=== PATIENT | male | born 1945 | race Caucasian/White ===

== ENCOUNTER 2024-10-13 19:57 | Outpatient (CLI) | payer OTHER, SELFPAY | END 2024-10-13 19:58 | disposition home or self-care (01) | LOC: AMB 10-15 11:47 | PROVIDERS: Visit Provider Student in an Organized Health Care Education/Training Program | DX: R55 Syncope and collapse (principal) | CPT/HCPCS: A0998 ==

== ENCOUNTER 2024-10-13 20:33 | Emergency (ER) | payer OTHER, SELFPAY ==
--- OUTSIDE RECORDS SUMMARY | 2024-09-03 10:15 | XMS_ITS | Encounter Summary ---
Author Organization [facility] Address [address] [place] [address] Care Team Providers Care Mass Spectroscopist Name Role Phone Charissa Cobb MD Primary Care Provider [phone] Reason for Referral * (Routine) - New Request Specialty Diagnoses / Procedures Referred By Contac t Referred To Contact Diagnoses 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 Complete heart block (HRC) Procedures Permanent Pacemaker Implantation (Outpatient) Abhijit Girard MD [address] [place] [address] Phone: tel: fax: Referral ID Status Reason Start Date Expiration Date V isits Requested Visits Authorized [id number] New Request 09/03/2024 12/03/2025 1 1 * Procedure/Equipment (Routine) - Incomplete Specialty Diagnoses / Procedures Referred By Contac t Referred To Contact Diagnoses 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 Complete heart block (HRC) Procedures XR Chest 2 Views Abhijit Girard MD [address] [place] [address] Phone: tel: fax: Referral ID Status Reason Start Date Expiration Date V isits Requested Visits Authorized [id number] Incomplete 09/03/2024 12/03/2025 1 1 Reason for Visit * Reason Comments CONSULT * Consult/Transfer Care (Routine) - New Request Specialty Diagnoses / Procedures Referred By Contac t Referred To Contact Cardiology Diagnoses Second degree AV block Darby Marroquin MD [address] [place] [address] Phone: tel: fax: [facility] [address] [place] [id number] Phone: tel: fax: Referral ID Status Reason Start Date Expiration Date V isits Requested Visits Authorized [id number] New Request 06/21/2024 09/20/2025 1 1 Encounter Details Date Type Department Care Team (Late st Contact Info) Description 09/03/2024 10:15 AM CDT Office Visit [facility] [address] [place] [address]. [place], [place] [id number] Abhijit Girard MD [address] [place] [address] Complete heart block (HRC) (Primary Dx); Mitral valve disorder (HRC); Second degree AV block Social History Tobacco Use Types Packs/Day Years Used Date Smoking Tobacco: Former Cigarettes 1 8 0 08/01/1961 - 08/01/1969 Smokeless Tobacco: Never Alcohol Use Standard Drinks/Week Comments Yes 12 (1 standard drink = 0.6 oz pu re alcohol) wine with dinner [facility] Utilities Answer Date Recorded In the past 12 months has [employer], oil, or [employer] threatened to shut off services in your home? No 03/01/2024 Humiliation, Afraid, Rape, and Kick questionnair e Answer Date Recorded Within the last year, have y ou been afraid of your partner or ex-partner? No 03/01/2024 Within the last year, have y ou been humiliated or emotionally abused in other ways by your partner or ex-partner? No Within the last year, have y ou been kicked, hit, slapped, or otherwise physically hurt by your partner or ex-partner? No 03/01/2024 Within the last year, have y ou been raped or forced to have any kind of sexual activity by your partner or ex-partner? No 03/01/2024 PHQ-2 Answer Date Recorded PHQ-2 Score 0 04/17/2024 Hunger Vital Sign Answer Date Recorded Within the past 12 months, y ou worried that your food would run out before you got the money to buy more. Never true 03/01/20 24 Within the past 12 months, t he food you bought just didn't last and you didn't have money to get more. Never true 03/01/2024 PRAPARE - Transportation Answer Date Re corded In the past 12 months, has l ack of transportation kept you from medical appointments or from getting medications? No 02/01 In the past 12 months, has l ack of transportation kept you from meetings, work, or from getting things needed for daily living? No 03/01/2024 Housing Stability Vital Sign Answer Farhat e Recorded In the last 12 months, was t here a time when you were not able to pay the mortgage or rent on time? No 03/01/2024 In the past 12 months, how m any times have you moved where you were living? 1 03/01/2024 At [facility] time in the [facility] were you homeless or living in a [facility] (including now)? 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 Not on file Not on file Not on file documented as of this encounter Last Filed Vital Signs Vital Sign Reading Time Taken Comments Blood Pressure 120/68 09/03/2024 10:11 AM CDT Pulse 62 09/03/2024 10:11 AM CDT Temperature - - Respiratory Rate - - Oxygen Saturation - - Inhaled Oxygen Concentration - - Weight 95.3 kg (210 lb) 09/03/2024 10:11 AM CDT Height - - Body Mass Index 27.71 02/29/2024 11:18 PM CDT documented in this encounter Progress Notes * Abhijit Girard MD - 09/03/2024 10:15 AM CDT Cardiac Electrophysiology Consult Note 09/03/2024 Alex Yeboah [id number] Requesting physician: Primary physician: Charissa Cobb MD 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 He is followed in Cardiology Clinic by Dr. Darby Marroquin. He was recently seen in clinic on June 21, 2024. In summary, the patient was in his normal state of health until around 2023 when he has afacial droop. His advised him to go to the ER. He had an MRI in the [facility] ED which showed early subacute infarct in the posterolateral right frontal white matter. Rhythm monitor was ordered which was not revealing for atrial fibrillation however did show second-degree AV block type 2, with ep isodes of two-to-one block. Could not rule out 3rd degree heart block. He has not had any episodes of passing out. He has not had any definitive syncope or presyncope. [place] when he had 2 episodes of lightheadedness when standing up and did have 1 episode, on a very hot day, where he had lightheadedness that was a little bit more persistent. He hasbeen able to maintain his activities, he bikes regularly in the summer until it gets to 20?? and gets his heart rate to at least the low 100s. When he was in [place] he did also go snorkeling and was able to be active. On interview, the patient's expresses concerns that he experiences brief episodes of lightheadedness even without postural changes. The patient is very passionate about staying active with bicycling. The patient is not fully aware of these lightheadedness episodes since his thinks he is confused during these brief times. He otherwise denies any PND, orthopnea lower extremity edema. Past Medical History: Diagnosis Date Actinic keratosis of left cheek 06/28/2013 Arthritis 1985 BPH (benign prostatic hyperplasia) Cancer ([facility]) 2017 prostate Cataract 2023 Combined form of age-related cataract, left eye 06/16/2023 Combined form of age-related cataract, right eye 06/16/2023 Mitral valve prolapse ([facility]) Past Surgical History: Procedure Laterality Date actinic keratosis removal Left removal of actinic kertosis on left cheek ARTHROSCOPY OF JOINT R & L knee EXTRACAPSULAR CATARACT REMV IOL Right 07/27/2023 DR. Andersen IOL right eye 07/27/2023 EXTRACAPSULAR CATARACT REMV IOL Left 08/10/2023 S/P IOL left eye Dr Andersen 08/10/2023 HERNIA REPAIR Right 2010 right inguinal hernia repair PROSTATE SURGERY 2017 VASECTOMY 1975 VASECTOMY* Current Medications: Outpatient Medications Prior to Visit Medication Sig ALLERGY VENOM 100 MCG/ML, RED, Mixed Vespid 100mcg/ml Exp: 11/18/2023 aspirin 81 MG chewable tablet Chew and swallow 1 Tablet (81 mg) by mouth daily. Indications: StrokeDue To Limited Blood Flow Do not start before March 02, 2024. atorvastatin (LIPITOR) 40 MG tablet Take 1 Tablet (40 mg) by mouth every evening. Indications: Cerebrovascular Accident or Stroke, to lower cholesterol EPINEPHrine (EPIPEN) 0.3 MG/0.3ML injection Inject 0.3 mL (0.3 mg) intramuscularly as needed (for allergic reaction). May repeat. fluorouracil (EFUDEX) 5 % cream Apply to face, ears and scalp once or twice daily for 2-4 weeks. Wash hands after applying. Avoid sun. No facility-administered medications prior to visit. Allergies: Allergies Allergen Reactions Bee Venom Beta Adrenergic Blockers Other, see comments While on allergy shots due to risk of allergy reaction and potential decreased effect of Epi-pen when on a beta-paras. Can go on them but would need to discuss with allergists before receiving allergy shots. Review of systems: A complete review of systems was done and is negative, other than as described above. Social History: Reviewed in EMR Family History: Reviewed in EMR Physical Exam: BP 120/68 (BP Location: Right Arm, BP Cuff Size: Large) Pulse 62 Wt 210 lb (57463 g) BMI 27.71 kg/m?? GENERAL: The patient is doing well and relaxed. RESPIRATORY : breath sounds CTA bilaterally, chest rises symmetrically CV : RRR, no m/g/r appreciated, no JVD ABDOMINAL : without scars, normoactive BS, soft, nttp. MUSCULOSKELETAL : fully wt bearing with full ROM in all ext NEUROLOGICAL : AO to person, place, time and situation. Extremities: DP 2+ Labs: Lab Results Component Value Date Creatinine 0.87 03/01/2024 Glucose 94 03/01/2024 CO2 23 03/01/2024 Chloride 107 03/01/2024 Sodium 138 03/01/2024 BUN 19 03/01/2024 Calcium 9.2 03/01/2024 GFR, Estimated >60 03/01/2024 EKG: Personally reviewed by me. Normal sinus rhythm, first-degree AV block, NH interval of 304 milliseconds Imaging: TTE EF 60%, biatrial enlargement, mild mitral regurgitation, dilated 0.4 cm aorta, probably close to normal for height, positive bubble study Event monitor Normal average heart rate. No arrhythmia. 5% PVC and 1% PAC burden. Multiple episodes of AV block - definitive evidence of 2:1 AV block and most likely complete heart block. 3 patient triggers - 1 correlates with sinus rhythm with PVC and 2 are not able to be interpreted due to significant artifact. 04/26/2024 3:21:51 PM ASSESSMENT: Paroxysmal complete heart block Paroxysmal second-degree type 2 av block Frequent episodes of brief dizziness associated with bradycardia History of CVA PFO/ASD Impression: I had an extensive discussion with the patient and his about the findings on the patient's most recent event monitor. I also reviewed the symptoms of dizziness more thoroughly. The patient does not recognize these episodes of dizziness but clearly his notices that he suddenly has these brief episodes where his balance is off and he appears confused and then normalizes quickly. I discussed my concerns of the findings of paroxysmal complete heart block and second-degree type 2av block during the daytime on his event monitor. The bradycardia is associated with these episodesof lightheadedness and the patient is actively not on a calcium channel paras or beta-paras. Therefore this is irreversible. He also has further evidence for underlying AV ann disease with the presence of severe first-degree AV block. Therefore I made the recommendation of considering a permanent pacemaker implant. I recommend getting a dual-chamber permanent pacemaker. I went over the procedure in detail went over the risks and benefits of the implant in detail. Thank you for involving me in the care of your patient, Alex Yeboah. If you have any questions regarding these recommendations, please feel free to contact me. Abhijit Girard MD, MS, [facility], [facility] Department of Cardiology This note was written using dictation software. Please notify me if there are significant unintended word substitutions and I will correct them. documented in this encounter Plan of Treatment Upcoming Encounters Date Type Department Care Team (Late st Contact Info) Description 10/16/2024 10:15 AM CDT Appointment [facility] [address] [facility] [place] [address] 10/16/2024 11:40 AM CDT Appointment [facility] [address] [facility] [place] [address] Shahida Parnell, PRODUCTION MATERIAL COORDINATOR, INSTALLMENT LOAN COLLECTOR [address] [place] [address] 10/23/2024 7:45 AM CDT Appointment [facility] [address] [place] [address] 11/28/2024 10:30 AM CDT Appointment [facility] [address] [place] [address]. 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 Appointment [facility] ER [facility] [facility] [address] [facility] [place] [address] Cheryl De Leon, [facility] [address] [place] [address] ISAIAH TOVAR [place] [id number] documented as of this encounter Procedures Procedure Name Priority Date/Time Associated Diagnosis Comments ECG 12 LEAD OUTPATIENT Routine 09/03/2024 10:03 AM CDT Mitral valve disorder (HRC) documented in this encounter Results * Permanent Pacemaker Implantation (Outpatient) (09/12/2024 3:52 PM CDT) Narrative SYNAPSE - 09/12/2024 3:52 PM CDT Marcos Sarabia MD 09/12/2024 3:58 PM Date of procedure: 09/12/2024 Procedure: Dual chamber (DDD) pacemaker and lead implant (His RV lead); His bundle electrogram recording Pre-procedure diagnosis: Intermittent complete heart block Post-procedure diagnosis:Same Director Of Accounting: Marcos Sarabia MD Estimated blood loss: Minimal Complications: None Procedure Patient was assessed by me prior to the procedure and was determined to be a suitable candidate for the procedure. Informed consent was obtained and placed on chart. Patient was taken to the electrophysiology suite in the fasting non-sedated state. Moderate to deep sedation was provided with intravenous midazolam 2 mg and fentanyl 100 mcg under my supervision for >45 minutes throughout the procedure. Sterile prep and drape were performed in the usual fashion. The left pectoral region was isolated. This region was anesthetized with 1% lidocaine infiltrated locally. A 4-5 cm incision was made parallel and approximately 2-3 cm caudal to the clavicle and using sharp and blunt dissection, the pacemaker pocket was fashioned over the layer of the pectoral muscle. Electrocautery was used for hemostasis. Using fluoroscopic guidance, the left subclavian venapuncture was performed over the intersection of the left first rib. 2-0.035 guidewires were placed via 2 separate passes. Over the first guidewire, a peel-away introducer was inserted. The guidewire and dilator were removed allowing passage of a Medtronic C-315 sheath and the right ventricular (RV) lead to within the intravascular space. Using the C-315 sheath, the His bundle region was mapped and the His bundle was identified. The RV lead tip was positioned within the RV at the right interventricular septum near the His bundle. Appropriate pacing and sensing parameters were obtained. Both introducers were stripped away. The lead was secured to the pectoral muscle using 0 non-absorbable suture and the accompanying suture sleeve. Over the remaining guidewire, another peel-away introducer was inserted allowing passage of a Medtronic C-315 S4 sheath for deployment of the right atrial (RA) lead to the intra-atrial septal region. Using the S4 sheath, the lead tip was positioned along the intra-atrial septum. Appropriate pacing and sensing parameters were obtained. The introducers were stripped away. The lead was secured to the pectoral muscle using 0 non-absorbable suture and the accompanying suture sleeve. The pocket was flushed with antibiotic irrigation. The generator was connected to the leads after confirming serial numbers. The generator was then placed in the pocket with all excess lead coiled behind the generator. The generator was secured to the pectoral muscle with 2-0 non-absorbable suture passed through the hole provided in the header. The pocket was closed in layers using 2-0 absorbable suture in the subcutaneous layer(s) and 4-0 absorbable suture in a subcuticular layer. Dermabond was used to further approximate the edges of the incision. The patient was transferred to the recovery area in stable condition. There were no complications. Results Pulse generator and lead information Pulse generator is a Andre Phillipe Sarah XT DR, Product # [id number]. RA lead is a Medtronic model # 3830. Threshold at 0.5 msec was 0.6 volts, impedance was 1072 ohms, and P-wave amplitude was 4.5 mV. RV lead is a Medtronic model # 3830. Threshold at 0.5 msec was 0.7 volts, impedance was 836 ohms, and R-wave amplitude was 9.5 mV. Diaphragmatic stimulation was negative at 10 volts on both leads. Final Settings Pacing mode is DDDR with a lower rate of 60 BPM and an upper tracking rate of 130 BPM. Atrial and ventricular outputs are both programmed to 2-3 times safety margin. Conclusion Alex Yeboah is a 79 y.o. y/o male who underwent successful implant of a dual chamber pacemaker implant. The RV lead was positioned near the His bundle. Provided the patient has an uncomplicated hospital course, it is anticipated that he will be discharged later today. Abhijit Girard MD PN ELECTROPHYSIOLOGY ORDERABL E Final Result [facility] [address] [place] [address] * XR Chest 2 Views (09/03/2024 12:32 PM CDT) Anatomical Region Laterality Modality Chest, Lung Digital Radiogra phy 09/03/2024 12:2 3 PM CDT Narrative 09/03/2024 2:28 PM CDT COMPARISON: None. FINDINGS: Linear atelectasis in the left lung base. Calcified left hilar lymph node. No acute consolidation. No pneumothorax or pleural effusion. The cardiac silhouette is not enlarged. Degenerative changes in the spine with dextroscoliosis. Procedure Note Donnie Honeycutt MD - 09/03/2024 COMPARISON: None. FINDINGS: Linear atelectasis in the left lung base. Calcified left hilarlymph node. No acute consolidation. No pneumothorax or pleural effusion.The cardiac silhouette is not enlarged. Degenerative changes in the spinewith dextroscoliosis. Abhijit Girard MD RAD GD Final Result * Creatinine / GFR (09/03/2024 12:08 PM CDT) Creatinine 0.92 0.73 - 1.18 mg/dL 09/03/2024 12:47 PM CDT [facility] GFR, Estimated >60 >60 mL/min/1.7 3m2 09/03/2024 12:47 PM CDT [facility] Blood Venipuncture / Unknown 09/03/2024 12:08 PM CDT 09/03/2024 12:10 PM CDT us Abhijit Girard MD LAB_1 Final Result Performing Organization Address [facility] de Phone Number [facility] [address] [place] [address] * BUN (09/03/2024 12:08 PM CDT) BUN 25 7 - 26 mg/dL 09/03/2024 12:47 PM CDT [facility] Blood Venipuncture / Unknown 09/03/2024 12:08 PM CDT 09/03/2024 12:10 PM CDT us Abhijit Girard MD LAB_1 Final Result Performing Organization Address [facility] Phone Number [facility] [address] [place] [address] * Sodium (09/03/2024 12:08 PM CDT) Sodium 136 136 - 145 mmol/L 09/03/2024 12:47 PM CDT [facility] Blood Venipuncture / Unknown 09/03/2024 12:08 PM CDT 09/03/2024 12:10 PM CDT us Abhijit Girard MD LAB_1 Final Result Performing Organization Address [facility] Phone Number [facility] [address] [place] [address] * Potassium (09/03/2024 12:08 PM CDT) Potassium 4.4 3.5 - 5.1 mmol/L 09/03/2024 12:47 PM CDT [facility] Blood Venipuncture / Unknown 09/03/2024 12:08 PM CDT 09/03/2024 12:10 PM CDT us Abhijit Girard MD LAB_1 Final Result Performing Organization Address City/[facility] Co de Phone Number [facility] [address] [place], [place] [id number], [place] * (ABNORMAL) Complete Blood Count-No Diff (09/03/2024 12:08 PM CDT) WBC 4.6 3.5 - 10.5 x10(9)/L 09/03/2024 12:14 PM CDT [facility] RBC 4.11(L) 4.32 - 5.72 x10(12)/L 09/03/2024 12:14 PM CDT [facility] Hemoglobin 13.3(L) 13.5 - 17.5 g/dL 09/03/2024 12:14 PM CDT [facility] HCT 38.8 38.8 - 50.0 % 09/03/2024 12:14 PM CDT [facility] MCV 94.4 80.0 - 100.0 fL 09/03/2024 12:14 PM CDT [facility] MCH 32.4 27.6 - 33.3 pg 09/03/2024 12:14 PM CDT [facility] MCHC 34.3 31.5 - 35.2 g/dL 09/03/2024 12:14 PM CDT [facility] RDW 13.0 11.9 - 15.5 % 09/03/2024 12:14 PM CDT [facility] Platelets 214 150 - 450 x10(9)/L 09/03/2024 12:14 PM CDT [facility] Automated NRBC 0 <=0 /100 WBC 09/03/2024 12:14 PM CDT [facility] Blood Venipuncture / Unknown 09/03/2024 12:08 PM CDT 09/03/2024 12:11 PM CDT us Abhijit Girard MD LAB_1 Final Result [facility] [address] * ECG 12 Lead Outpatient (09/03/2024 10:03 AM CDT) Ventricular Rate 62 BPM [facility] Atrial Rate 62 BPM [facility] P-R Interval 304 ms [facility] QRS Duration 94 ms [facility] QT 400 ms [facility] QTC 406 ms [facility] P [place] 75 degrees [facility]USE [facility] R [place] -61 degrees [facility]USE [facility] T [place] 42 degrees [facility]USE [facility] 09/03/2024 10:0 3 AM CDT Narrative [facility] - 09/03/2024 12:52 PM CDT Sinus rhythm with 1st degree A-V block with occasional Premature ventricular complexes Right atrial enlargement Left axis deviation Possible Inferior infarct , age undetermined Abnormal ECG When compared with ECG of 21-JUN-2024 13:32, No significant change was found Confirmed by Brandy Tejada ([id number]) on 09/03/2024 12:52:35 PM Procedure Note Brandy Tejada MD - 09/03/2024 Sinus rhythm with 1st degree A-V block with occasional Prematureventricular complexes Right atrial enlargement Left axis deviation Possible Inferior infarct , age undetermined Abnormal ECG When compared with ECG of 21-JUN-2024 13:32, No significant change was found Confirmed by Brandy Tejada ([id number]) on 09/03/2024 12:52:35 PM us Abhijit Girard MD PN ECG ORDERABLES Final Resul t MUSE [facility] [address] [place] [address] documented in this encounter Visit Diagnoses Diagnosis Complete heart block (HRC)- Primary Atrioventricular block, complete Mitral valve disorder (HRC) Mitral valve disorders Second degree AV block Other second degree atrioventricular block Mitral valve disorder (HRC) Mitral valve disorders Second degree AV block Other second degree atrioventricular block Complete heart block (HRC) Atrioventricular block, complete documented in this encounter Care Teams Mass Spectroscopist Relationship Specialty Start Date End Date Charissa Cobb MD [address] [place] [address] [place] [address] PCP - General Family Practice 06/19/13 documented as of this encounter
--- OUTSIDE RECORDS SUMMARY | 2024-09-03 11:50 | XMS_ITS | Encounter Summary ---
Author Organization [facility] Address [address] [place] [address] Care Team Providers Care Sheeter Machine Operator Name Role Phone Charissa Cobb MD Primary Care Provider [phone] Encounter Details Date Type Department Care Team (Late st Contact Info) Description 09/03/2024 11:50 AM CDT Lab Visit [facility] [address] [facility]. [place], [place] [address] Mitral valve disorder (HRC); Second degree AV block; Complete heart block (HRC) Social History Tobacco Use Types Packs/Day Years Used Date Smoking Tobacco: Former Cigarettes 1 8 0 08/01/1961 - 08/01/1969 Smokeless Tobacco: Never Alcohol Use Standard Drinks/Week Comments Yes 12 (1 standard drink = 0.6 oz pu re alcohol) wine with dinner [facility] Utilities Answer Date Recorded In the past 12 months has [employer], gas, oil, or water [employer] threatened to shut off services in your [...] any time in the past 12 m [facility], were you homeless or living in a prison (including now)? No 03/01/2024 Sex and Gender [...] on file documented as of this encounter Plan of Treatment Upcoming Encounters Date Type Department Care Team (Late st Contact Info) Description 10/16/2024 10:15 AM CDT Appointment [facility] [address] [facility] [place] [address] 10/16/2024 11:40 AM CDT Appointment [facility] [address] [facility] [place] [address] Shahida Parnell, STAFF RADIOLOGIST, QUALITATIVE RESEARCHER [address] [place] [phone] 10/23/2024 7:45 AM CDT Appointment [facility] [address] [place] [address] 11/28/2024 10:30 AM CDT Appointment [facility] [address] [place] [address]. [place] [address] Zahida Calloway MD [address] [place] [address] 02/12/2025 8:45 AM CDT Appointment [facility] [address] [place] [address] Palma Villegas MD [address] [place] [address] [place] [address] 04/10/2025 2:20 PM CELLAR PACKER Appointment [facility] [address] [address] Cheryl De Leon, [address] [place] [address] documented as of this encounter Procedures Procedure Name Priority Date/Time Associated Diagnosis Comments CREATININE / GFR Routine 09/03/2024 12:0 8 PM CDT 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 Complete heart block (HRC) COMPLETE BLOOD COUNT-NO DIFF Routine 09/03/2024 12:08 PM CDT 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 Complete heart block (HRC) SODIUM Routine 09/03/2024 12:08 PM CDT 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 Complete heart block (HRC) POTASSIUM Routine 09/03/2024 12:08 PM CDT 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 Complete heart block (HRC) BUN Routine 09/03/2024 12:08 PM CDT 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 Complete heart block (HRC) documented in this encounter Results * Creatinine / GFR (09/03/2024 12:08 PM CDT) Creatinine 0.92 0.73 - 1.18 mg/dL 09/03/2024 12:47 PM CDT [facility] GFR, Estimated >60 >60 mL/min/1.7 3m2 09/03/2024 12:47 PM CDT [facility] Blood Venipuncture / Unknown 09/03/2024 12:08 PM CDT 09/03/2024 12:10 PM CDT us Abhijit Girard MD LAB_1 Final Result Performing Organization Address [facility] Co de Phone Number [facility] [address] * BUN (09/03/2024 12:08 PM CDT) BUN 25 7 - 26 mg/dL 09/03/2024 12:47 PM CDT [facility] Blood Venipuncture / Unknown 09/03/2024 12:08 PM CDT 09/03/2024 12:10 PM CDT us Abhijit Girard MD LAB_1 Final Result Performing Organization Address [facility] Co de Phone Number [facility] [address] * Sodium (09/03/2024 12:08 PM CDT) Sodium 136 136 - 145 mmol/L 09/03/2024 12:47 PM CDT [facility] Blood Venipuncture / Unknown 09/03/2024 12:08 PM CDT 09/03/2024 12:10 PM CDT Abhijit Girard MD LAB_1 Final Result Performing Organization Address [facility] Co de Phone Number [facility] [address] [place] [address] * Potassium (09/03/2024 12:08 PM CDT) Potassium 4.4 3.5 - 5.1 mmol/L 09/03/2024 12:47 PM CDT [facility] Blood Venipuncture / Unknown 09/03/2024 12:08 PM CDT 09/03/2024 12:10 PM CDT Abhijit Girard MD LAB_1 Final Result Performing Organization Address [facility] Phone Number [facility] [address] [place] [address] * (ABNORMAL) Complete Blood Count-No Diff (09/03/2024 12:08 PM CDT) WBC 4.6 3.5 - 10.5 x10(9)/L 09/03/2024 12:14 PM CDT [facility] RBC 4.11(L) 4.32 - 5.72 x10(12)/L 09/03/2024 12:14 PM CDT [facility] Hemoglobin 13.3(L) 13.5 - 17.5 g/dL 09/03/2024 12:14 PM CDT [facility] HCT 38.8 38.8 - 50.0 % 09/03/2024 12:14 PM CDT [facility] MCV 94.4 80.0 - 100.0 fL 09/03/2024 12:14 PM CDT [facility] MCH 32.4 27.6 - 33.3 pg 09/03/2024 12:14 PM CDT [facility] MCHC 34.3 31.5 - 35.2 g/dL 09/03/2024 12:14 PM CDT [facility] RDW 13.0 11.9 - 15.5 % 09/03/2024 12:14 PM CDT [facility] Platelets 214 150 - 450 x10(9)/L 09/03/2024 12:14 PM CDT [facility] Automated NRBC 0 <=0 /100 WBC 09/03/2024 12:14 PM CDT [facility] Blood Venipuncture / Unknown 09/03/2024 12:08 PM CDT 09/03/2024 12:11 PM CDT us Abhijit Girard MD LAB_1 Final Result [facility] [address] documented in this encounter Visit Diagnoses Diagnosis Mitral valve disorder (HRC) Mitral valve disorders Second degree AV block Other second degree atrioventricular block Complete heart block (HRC) Atrioventricular block, complete documented in this encounter Care Teams Sheeter Machine Operator Relationship Specialty Start Date End Date Charissa Cobb MD [address] [facility] [place] [address] PCP - General Family Practice 06/19/13 documented as of this encounter
--- OUTSIDE RECORDS SUMMARY | 2024-09-03 12:15 | XMS_ITS | Encounter Summary ---
Author Organization [facility] Address [address], [place] [address] Care Team Providers Care Edge Trimmer Name Role Phone Charissa Cobb MD Primary Care Provider [phone] Reason for Visit * Procedure/Equipment (Routine) - Incomplete Specialty Diagnoses / Procedures Referred By Contac t Referred To Contact Diagnoses 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 Complete heart block (HRC) Procedures XR Chest 2 Views Abhijit Girard MD [address] [place] [address] Phone: tel: fax: Referral ID Status Reason Start Date Expiration Date V isits Requested Visits Authorized [id number] Incomplete 09/03/2024 12/03/2025 1 1 Encounter Details Date Type Department Care Team (Late st Contact Info) Description 09/03/2024 12:15 PM CDT Ancillary Procedure [facility] [address] [place], [place] [id number] Abhijit Girard MD [address] [place] [address] Mitral valve disorder (HRC); Second degree AV block; Complete heart block (HRC) Social History Tobacco Use Types Packs/Day Years Used Date Smoking Tobacco: Former Cigarettes 1 8 0 08/01/1961 - 08/01/1969 Smokeless Tobacco: Never Alcohol Use Standard Drinks/Week Comments Yes 12 (1 standard drink = 0.6 oz pu re alcohol) wine with dinner [facility] Utilities Answer Date Recorded In the past 12 months has th e [employer], gas, oil, or water [employer] threatened to shut off services in your [...] any time in the past 12 m [facility], were you homeless or living in a fpc (including now)? No 03/01/2024 Sex and Gender [...] [facility] Elect[facility] [address] [facility] [address] 10/16/2024 11:40 AM CDT Appointment [facility] [address] [place] [address] Shahida Parnell, MARINE PIPEFITTER, ASSISTANT ACCOUNT EXECUTIVE [address] [place] [address] 10/23/2024 7:45 AM CDT Appointment [facility] [address] [place] [address] 11/28/2024 10:30 AM CDT Appointment Specialty [facility] 401 Allergy Clinic [address] [facility] [place] [address] Zahida Calloway MD [address] [place] [address] 02/12/2025 8:45 AM CDT Appointment [facility] [address] [place] [address] Palma Villegas MD [address] [place] [address] [place] [address] 04/10/2025 2:20 PM CONTRACT MAIL CARRIER Appointment [facility] [address] [place] [address] Cheryl De Leon, [facility] [address] [facility] [place], [place] [address] documented as of this encounter Procedures Procedure Name Priority Date/Time Associated Diagnosis Comments XR CHEST 2 VIEWS Routine 09/03/2024 12:3 2 PM CDT 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 Complete heart block (HRC) documented in this encounter Results * XR Chest 2 Views (09/03/2024 12:32 [...] Abhijit Girard MD RAD GD Final Result documented in this encounter Visit Diagnoses Diagnosis Mitral valve disorder (HRC) Mitral valve disorders Second degree AV block Other second degree atrioventricular block Complete heart block (HRC) Atrioventricular block, complete documented in this encounter Care Teams Edge Trimmer Relationship Specialty Start Date End Date Charissa Cobb MD [address] [facility] [place] [address] PCP - General Family Practice 06/19/13 documented as of this encounter
--- OUTSIDE RECORDS SUMMARY | 2024-09-11 07:45 | XMS_ITS | Encounter Summary ---
Author [facility] Address [address] [place] [address] Care Team Providers Care Transit Proof Machine Operator Name Role Phone Charissa Cobb MD Primary Care Provider [phone] Reason for Visit * Reason Comments ALLERGY SHOT Encounter Details Date Type Department Care Team (Late st Contact Info) Description 09/11/2024 7:45 AM CDT Nursing Visit [facility] [place] [address] Allergic to insect bites and stings (Primary Dx) Social History Tobacco Use Types Packs/Day Years Used Date Smoking Tobacco: Former Cigarettes 1 8 0 08/01/1961 - 08/01/1969 Smokeless Tobacco: Never Alcohol Use Standard Drinks/Week Comments Yes 12 (1 standard drink = 0.6 oz pu re alcohol) wine with dinner [facility] Utilities Answer Date Recorded In the past 12 months has [employer], gas, oil, or water [employer] threatened to shut off services in your [...] any time in the past 12 m [facility], were you homeless or living in a fci (including now)? No 03/01/2024 Sex and Gender [...] on file documented as of this encounter Progress Notes * Zahida Calloway MD - 09/11/2024 7:57 AM CDT [facility] Immunotherapy Injection Visit Recorded On Date: Sep 11 2024 7:57AM By [facility] User: [email or web address] Initials: AC Injection Provider: Charissa Cobb Injection: MIXED VESPID 1mL @ 300 mcg/ml Location: LEFT Notes: 10/31/2024, MAINTAIN, DAY 42, AC/jjyc -> Reaction: None Rxn Notes: None -> Frequency: Q 15-42 Days Schedule: [id number] Treatment Plan: MIXED VESPID (300 mcg/ml) Max Dose: 1.00 @ 300 mcg/ml !-> Vial Override: Scan: <no value> / Actual: [id number] / Reason: HP VIAL Pre Injection Questions Health Screen: Passed * Tyra Zaragoza LPN - 09/11/2024 7:45 AM CDT Date of Visit: 09/11/2024 Date of Last Digital Media Representative Visit DECEMBER 2023 Days Since Last Visit: 42 Action Planned: MAINTAIN Expiration Date: 10/31/2024 Mixdown Needed? NO Reschedule Needed? NO White Dot= Done Purple Dot= Remind to schedule with Digital Media Representative Blue Dot= Need to address an issue before Patient is Seen documented in this encounter Plan of Treatment Upcoming Encounters Date Type Department Care Team (Late st Contact Info) Description 10/16/2024 10:15 AM CDT Appointment [facility] Elect[facility]iology [address] [place], [place] [address] 10/16/2024 11:40 AM CDT Appointment [facility] [address] [place], [place] [phone] Shahida Parnell, AUTOMOTIVE LIGHT MECHANIC, CAUSTIC CRESYLATE SHIFT SUPERINTENDENT [address] [place] [address] 10/23/2024 7:45 AM CDT Appointment [facility] [address] [place] [address] 11/28/2024 10:30 AM CDT Appointment Special[facility] 401 Allergy Clinic [address] [facility] [place] [address] Zahida Calloway MD [address] [place] [address] 02/12/2025 8:45 AM CDT Appointment [facility] [address] [place] [address] Palma Villegas MD [address] [place] [address] [place] [address] 04/10/2025 2:20 PM WALL TO WALL CARPET INSTALLER Appointment [facility] [address] [address] Cheryl De Leon, [address] [place] [address] documented as of this encounter Visit Diagnoses Diagnosis Allergic to insect bites and stings- Primary Allergy, unspecified not elsewhere classified documented in this encounter Care Teams Transit Proof Machine Operator Relationship Specialty Start Date End Date Charissa Cobb MD [address] [place] [address] [place] [address] PCP - General Family Practice 06/19/13 documented as of this encounter
--- OUTSIDE RECORDS SUMMARY | 2024-09-12 13:57 | XMS_ITS | Encounter Summary ---
Author Organization [facility] Address [address] [place] [address] Care Team Providers Care Pest Control Pilot Name Role Phone Charissa Cobb MD Primary Care Provider [phone] Reason for Referral * Procedure/Equipment (Routine) - Incomplete Specialty Diagnoses / Procedures Referred By Contac t Referred To Contact Procedures XR Chest 2 Views Marcos Sarabia MD [address] [place] [address] Phone: tel: fax: Referral ID Status Reason Start Date Expiration Date V isits Requested Visits Authorized [id number] Incomplete 09/12/2024 12/12/2025 1 1 * (Routine) - Incomplete Specialty Diagnoses / Procedures Referred By Contac t Referred To Contact Procedures ECG 12 Lead Inpatient Marcos Sarabia MD [address] [place] [address] Phone: tel: fax: Referral ID Status Reason Start Date Expiration Date V isits Requested Visits Authorized [id number] Incomplete 09/12/2024 12/12/2025 1 1 * (Routine) - New Request Specialty Diagnoses / Procedures Referred By Olivia ford Referred To Contact Diagnoses 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 Complete heart block (HRC) Procedures Permanent Pacemaker Implantation (Outpatient) Abhijit Girard MD [address] [place] [id number] Phone: tel: fax: Referral ID Status Reason Start Date Expiration Date V isits Requested Visits Authorized [id number] New Request 09/03/2024 12/03/2025 1 1 Reason for Visit * Auth/Cert Specialty Diagnoses / Procedures Referred By Olivia ford Referred To Contact Diagnoses OP NEW PACEMAKER (PN) Referral ID Status Reason Start Date Expiration Date Visits Re quested Visits Authorized [id number] Encounter Details Date Type Department Care Team (Late st Contact Info) Description 09/12/2024 1:57 PM CDT - 09/12/2024 5:30 PM CDT Hospital Encounter [facility] Procedural Area [address] [place] [address]. [place] [address] Marcos Sarabia MD [address] [place] [phone] Intermittent complete heart block (HRC) (Primary Dx); Mitral valve disorder (HRC); Second degree AV block; Complete heart block (HRC) Discharge Disposition: Home Social History Tobacco Use Types Packs/Day Years Used Date Smoking Tobacco: Former Cigarettes 1 8 0 08/01/1961 - 08/01/1969 Smokeless Tobacco: Never Alcohol Use Standard Drinks/Week Comments Yes 12 (1 standard drink = 0.6 oz pu re alcohol) wine with dinner [facility] Utilities Answer Date Recorded In the past 12 months has th e electric, gas, oil, or water company threatened to shut off services in your [...] any time in the past 12 m [facility], were you homeless or living in [...] Sign Reading Time Taken Comments Blood Pressure 119/46 09/12/2024 4:46 PM CDT Pulse 66 09/12/2024 4:46 PM CDT Temperature 36.7 C (98.1 F) 09/12/2024 2:22 PM CDT Respiratory Rate 14 09/12/2024 4:46 PM CDT Oxygen Saturation 97% 09/12/2024 4:46 PM CDT Inhaled Oxygen Concentration - - Weight - - Height - - Body Mass Index - - documented in this encounter Medications at Time of Discharge ALLERGY VENOM 100 MCG/ML, RED, Mixed Vespid 100mcg/ml Exp: 11/18/2023 4 aspirin 81 MG chewable tabletIndication s:Ischemic Stroke Chew and swallow 1 Tablet (81 mg) by mouth daily. Indications: Stroke Due To Limited Blood Flow Do not start before March 02, 2024. 100 Tablet 3 4 atorvastatin (LIPITOR) 40 MG tabletIndication s:Cerebrovascula r Accident,to lower cholesterol Take 1 Tablet (40 mg) by mouth every evening. Indications: Cerebrovascular Accident or Stroke, to lower cholesterol 90 Tablet 3 4 03/01/20 25 EPINEPHrine (EPIPEN) 0.3 MG/0.3ML injection Inject 0.3 mL (0.3 mg) intramuscularly as needed (for allergic reaction). May repeat. 4 fluorouracil (EFUDEX) 5 % cream Apply to face, ears and scalp once or twice daily for 2-4 weeks. Wash hands after applying. Avoid sun. 40 g 1 5 documented as of this encounter Procedure Notes * Marcos Sarabia MD - 09/12/2024 3:52 PM CDTAssociated Order(s): PERMANENT PACEMAKER IMPLANTATION Date of procedure: 09/12/2024 Procedure: Dual chamber (DDD) pacemaker and lead implant (His RV lead); His bundle electrogram recording Pre-procedure diagnosis: Intermittent complete heart block Post-procedure diagnosis:Same Hearth Feeder: Marcos Sarabia MD Estimated blood loss: Minimal Complications: None Procedure Patient was assessed by me prior to the procedure and was determined to be a suitable candidate forthe procedure. Informed consent was obtained and placed on chart. Patient was taken to the electrophysiology suite in the fasting non-sedated state. Moderate to deepsedation was provided with intravenous midazolam 2 mg and fentanyl 100 mcg under my supervision for>45 minutes throughout the procedure. Sterile prep and [...] guidewire and dilator were removed allowing passage ofa Medtronic C-315 sheath and the right ventricular (RV) lead to within the intravascular space. Using the C-315 sheath, the His bundle region was mapped and the His bundle was identified. The RV leadtip was positioned within the RV at the right interventricular septum near the His bundle. Appropriate pacing and sensing parameters were obtained. Both introducers were stripped away. The lead was secured to the pectoral muscle using 0 non-absorbable suture and the accompanying suture sleeve. Overthe remaining guidewire, another peel-away introducer was inserted allowing passage of a Medtronic C-315 S4 sheath for deployment of the right atrial (RA) lead to the intra-atrial septal region. Using the S4 sheath, the lead tip was positioned along the intra-atrial septum. Appropriate pacing and sensing parameters were obtained. The introducers were stripped away. The lead was secured to the pectoral muscle using 0 non- absorbable suture and the accompanying suture sleeve. The [...] and lead information Pulse generator is a [employer] [place] XT DR, Product # [id number]. RA lead [...] that he will be discharged later today. documented in this encounter Plan of Treatment Upcoming Encounters Date Type Department Care Team (Late st Contact Info) Description 10/16/2024 10:15 AM CDT Appointment [facility] Electrophysiology [address] [facility] [place] [address] 10/16/2024 11:40 AM CDT Appointment [facility] Elect[facility]iology [address] [facility] [address] Shahida Parnell, FOOD SERVICE CASHIER, ALKYLATION OPERATOR [address] [place] [address] 10/23/2024 7:45 AM CDT Appointment [address] [place] [address] 11/28/2024 10:30 AM CDT Appointment [facility] [address] [facility] [place] [address] Zahida Calloway MD [address] [place] [address] 02/12/2025 8:45 AM CDT Appointment [place] [address] [place] [address] Palma Villegas MD [address] [place] [address] [place] [address] 04/10/2025 2:20 PM SWEEP MOLDER Appointment [facility] Dental [address] [address] Cheryl De Leon [address] [place] [address] documented as of this encounter Procedures Procedure Name Priority Date/Time Associated Diagnosis Comments XR CHEST 2 VIEWS Routine 09/12/2024 5:03 PM CDT ECG 12 LEAD INPATIENT Routine 09/12/2024 4:31 PM CDT PERMANENT PACEMAKER IMPLANTATION Routine 09/12/2024 3:52 PM CDT 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 2 cardiac leads appear in satisfactory position. No pneumothorax or pleural effusion, acute lung infiltrate or other significant change. The heart size and pulmonary vascularity appear normal. Procedure Note Zach Weaver MD - 09/12/2024 COMPARISON: 09/03/2024 FINDINGS: There has been placement of an implanted cardiac device in theleft chest wall. 2 cardiac leads appear in satisfactory position. Nopneumothorax or pleural effusion, acute lung infiltrate or othersignificant change. The heart size and pulmonary vascularity appearnormal. us Marcos Sarabia MD RAD GD Final Result * ECG 12 Lead Inpatient (09/12/2024 4:31 PM CDT) Ventricular Rate 68 BPM MUSE GHP Atrial Rate 68 BPM MUSE GHP P-R Interval 148 ms MUSE GHP QRS Duration 172 ms MUSE GHP QT 488 ms MUSE GHP QTC 518 ms MUSE GHP P Hadley 60 degrees MUSE GHP R Hadley 66 degrees MUSE GHP T Hadley 247 degrees MUSE GHP 09/12/2024 4:31 PM CDT Narrative MUSE GHP - 09/13/2024 9:47 AM CDT Atrial-sensed ventricular-paced rhythm with occasional PVCs. Abnormal ECG When compared with ECG of 03-SEP-2024 10:03, Rhythm is now Atrial-sensed ventricular-paced rhythm Confirmed by Carlotta Pink ([id number]) on 09/13/2024 9:47:10 AM Procedure Note Carlotta Pink MD - 09/13/2024 Atrial-sensed ventricular-paced rhythm with occasional PVCs. Abnormal ECG When compared with ECG of 03-SEP-2024 10:03, Rhythm is now Atrial-sensed ventricular-paced rhythm Confirmed by Carltota Pink ([id number]) on 09/13/2024 9:47:10 AM us Marcos Sarabia MD PN ECG ORDERABLES Final Resu lt [facility] [address] [place] [address] * Permanent Pacemaker Implantation (Outpatient) (09/12/2024 3:52 PM CDT) Narrative SYNAPSE - 09/12/2024 3:52 PM CDT Marcos Sarabia MD 09/12/2024 3:58 PM Date of procedure: 09/12/2024 Procedure: Dual chamber (DDD) pacemaker and lead implant (His RV lead); His bundle electrogram recording Pre-procedure diagnosis: Intermittent complete heart block Post-procedure diagnosis:Same Hearth Feeder: Marcos Sarabia MD Estimated blood loss: Minimal [...] and lead information Pulse generator is a [employer] XT DR, Product # [id number]. RA lead [...] E Final Result [facility] [address] [place] [address] documented in this encounter Visit Diagnoses Diagnosis Intermittent complete heart block (HRC)- Primary Mitral valve disorder (HRC) Mitral valve disorders Second degree AV block Other second degree atrioventricular block Complete heart block (HRC) Atrioventricular block, complete Intermittent complete heart block (HRC) Cardiac pacemaker in situ documented in this encounter Administered Medications Inactive Administered Medications - up to 3 most recent administrations Medication Order MAR Action Action Date Dose Rate Site acetaminophen (TYLENOL) tablet 650 mg 650 mg, Oral, Q6H PRN, Other, Mild Pain (pain score 1-4), Starting on Tue09/12/24 at 1622, Until Tue09/12/24 at 193, Give for mild pain or if patient prefers acetaminophen over other options for pain (all pain scores)., Post-Procedure ceFAZolin (ANCEF) 2 g in dextrose 100 mL premade IVPB 2 g, Intravenous, Administer over 30 Minutes, ONCE, On Tue09/12/24 at 1445, For 1 dose, Infuse within 60 minutes prior to incision; No intraoperative re-dosing needed. Pharmacy may adjust for renal insufficiency. Dose should be sent to and administered in the Electrophysiology Lab., [facility] CardIndications:Surgical Prophylaxis Started 09/12/2024 2:45 PM CDT 2 g 200 mL/hr fentaNYL (SUBLIMAZE) injection 25 mcg 25 mcg, Intravenous, Q2MIN PRN, Pain, anxiety, Starting on Tue09/12/24 at 1417, Until Tue09/12/24 at 1932, For 4 doses, Administer both midazolam and fentaNYL together for anxiety if no adverse reaction. Give in procedural area only. HCV Card., [facility] CardIndications:Mitral valve disorder (HRC),Second degree AV block,Complete heart block (HRC) HYDROcodone-acetaminophen (NORCO) 5-325 MG per tablet 1-2 Tablet 1-2 Tablet, Oral, Q4H PRN, Other, Moderate Pain (pain score 5-7), Starting on Tue09/12/24 at 1622, Until Tue09/12/24 at 1932, Post-Procedure HYDROmorphone (DILAUDID) injection 0.3-0.5 mg 0.3-0.5 mg, Intravenous, Q3H PRN, Other, Severe Pain (pain score 8-10), Starting on Tue09/12/24 at 1622, Until Tue09/12/24 at 1932, Post-Procedure lidocaine (UROJET) 2 % gel prefilled syringe Urethral, PRN WITH PROCEDURES, Local Anesthetic, Prior to intermittent straight cath or indwelling urethral catheter placement for pain relief and/or lubrication, Starting on Tue09/12/24 at 1622, Administer 3-5 mL for females and 5-10mL for males as needed for anesthetic effect prior to procedure Strongly recommend utilizing Coud tipped catheter and PRN Urojet for patients with a prostate age 50 and older. , Post-Procedure midazolam (VERSED) injection 0.5 mg 0.5 mg, Intravenous, Q2MIN PRN, Anxiety, Starting on Tue09/12/24 at 1417, Until Tue09/12/24 at 1932, For 4 doses, Administer both midazolam and fentaNYL together for anxiety if no adverse reaction. Give in procedural area only. HCV Card., [facility] CardIndications:Mitral valve disorder (HRC),Second degree AV block,Complete heart block (HRC) ondansetron (ZOFRAN) injection 4 mg 4 mg, Intravenous, Q30MIN PRN, Nausea, Vomiting, Starting on Tue09/12/24 at 1417, Until Tue09/12/24 at 193, For 2 doses, Repeat 4 mg dose 30 minutes after first dose if symptoms persist., Pre-ProcedureIndications:Mitral valve disorder (HRC),Second degree AV block,Complete heart block (HRC) Given 09/12/2024 2:59 PM CDT 4 mg ondansetron (ZOFRAN) injection 4 mg 4 mg, Intravenous, Q4H PRN, Nausea, Vomiting, Starting on Tue09/12/24 at 1622, Until Tue09/12/24 at 1932, Post-Procedure potassium bicarbonate-citric acid (EFFER-K) effervescent tablet 40 mEq 40 mEq, Oral, CONDITIONAL, Electrolyte Replacement, Starting on Tue09/12/24 at 1417, Until Tue09/12/24 at 193, 40 mEq once for patients with a pre-procedure potassium level less than or equal to 3.6 Message pharmacy to re-enter as ONCE order if conditions are met. Dissolve tablets completely in 3 to 4 ounces of cold/ice water or juice. May further dilute if GI adverse effects occur. May take 3-4 minutes to completely dissolve., Pre-ProcedureIndications:Mitral valve disorder (HRC),Second degree AV block,Complete heart block (HRC) sodium chloride 0.9% infusion Intravenous, at 25 mL/hr, CONTINUOUS, Starting on Tue09/12/24 at 1445, Begin 1 hour prior to the scheduled procedure time., [facility] CardIndications:Mitral valve disorder (HRC),Second degree AV block,Complete heart block (HRC) sodium chloride 0.9% injection 10-60 mL 10-60 mL, Intravenous, PRN, Line Patency, Line Care, Starting on Tue09/12/24 at 1622, Until Tue09/12/24 at 1932, Post-Procedure documented in this encounter Active and Recently Administered Medications Times are shown in CDT. Scheduled Medication Order 09/10/2024 09/11/2024 09/12/2024 ceFAZolin (ANCEF) 2 g in dextrose 100 mL premade IVPB (COMPLETED) 2 g, Intravenous, Administer over 30 Minutes, ONCE, On Tue09/12/24 at 1445, For 1 dose, Infuse within 60 minutes prior to incision; No intraoperative re-dosing needed. Pharmacy may adjust for renal insufficiency. Dose should be sent to and administered in the Electrophysiology Lab., C Card 1445 (Started - Prov ider: Veronika Farmer RN)1515 (Infused - Provider: Veronika Farmer RN) Continuous Medication Order 09/10/2024 09/11/2024 09/12/2024 sodium chloride 0.9% infusion Intravenous, at 25 mL/hr, CONTINUOUS, Starting on Tue09/12/24 at 1445, Begin 1 hour prior to the scheduled procedure time., C Card 1445 (Due) PRN Medication Order 09/10/2024 09/11/2024 09/12/2024 acetaminophen (TYLENOL) tablet 650 mg 650 mg, Oral, Q6H PRN, Other, Mild Pain (pain score 1-4), Starting on Tue09/12/24 at 1622, Until Tue09/12/24 at 1932, Give for mild pain or if patient prefers acetaminophen over other options for pain (all pain scores)., Post-Procedure fentaNYL (SUBLIMAZE) injection 25 mcg 25 mcg, Intravenous, Q2MIN PRN, Pain, anxiety, Starting on Tue09/12/24 at 1417, Until Tue09/12/24 at 1932, For 4 doses, Administer both midazolam and fentaNYL together for anxiety if no adverse reaction. Give in procedural area only. HCV Card., [facility] Card 1513 (Given during P rocedure - Provider: Deepali Mao RN - Comment: given during pacemaker procedure. see report for total amount given) HYDROcodone-acetaminophen (NORCO) 5-325 MG per tablet 1-2 Tablet 1-2 Tablet, Oral, Q4H PRN, Other, Moderate Pain (pain score 5-7), Starting on Tue09/12/24 at 1622, Until Tue09/12/24 at 1931, Post-Procedure HYDROmorphone (DILAUDID) injection 0.3-0.5 mg 0.3-0.5 mg, Intravenous, Q3H PRN, Other, Severe Pain (pain score 8-10), Starting on Tue09/12/24 at 1622, Until Tue09/12/24 at 1931, Post-Procedure lidocaine (UROJET) 2 % gel prefilled syringe Urethral, PRN WITH PROCEDURES, Local Anesthetic, Prior to intermittent straight cath or indwelling urethral catheter placement for pain relief and/or lubrication, Starting on Tue09/12/24 at 1622, Administer 3-5 mL for females and 5-10mL for males as needed for anesthetic effect prior to procedure Strongly recommend utilizing Coud tipped catheter and PRN Urojet for patients with a prostate age 50 and older. , Post-Procedure midazolam (VERSED) injection 0.5 mg 0.5 mg, Intravenous, Q2MIN PRN, Anxiety, Starting on Tue09/12/24 at 1417, Until Tue09/12/24 at 193, For 4 doses, Administer both midazolam and fentaNYL together for anxiety if no adverse reaction. Give in procedural area only. HCV Card., [facility] Card 1513 (Given during P rocedure - Provider: Deepali Mao RN - Comment: given during pacemaker procedure. see report for total amount given) ondansetron (ZOFRAN) injection 4 mg 4 mg, Intravenous, Q30MIN PRN, Nausea, Vomiting, Starting on Tue09/12/24 at 1417, Until Tue09/12/24 at 193, For 2 doses, Repeat 4 mg dose 30 minutes after first dose if symptoms persist., Pre-Procedure 1459 (Given - Provid er: Deepali Mao RN) ondansetron (ZOFRAN) injection 4 mg 4 mg, Intravenous, Q4H PRN, Nausea, Vomiting, Starting on Tue09/12/24 at 1622, Until Tue09/12/24 at 193, Post-Procedure potassium bicarbonate-citric acid (EFFER-K) effervescent tablet 40 mEq 40 mEq, Oral, CONDITIONAL, Electrolyte Replacement, Starting on Tue09/12/24 at 1417, Until Tue09/12/24 at 1932, 40 mEq once for patients with a pre-procedure potassium level less than or equal to 3.6 Message pharmacy to re-enter as ONCE order if conditions are met. Dissolve tablets completely in 3 to 4 ounces of cold/ice water or juice. May further dilute if GI adverse effects occur. May take 3-4 minutes to completely dissolve., Pre-Procedure sodium chloride 0.9% injection 10-60 mL 10-60 mL, Intravenous, PRN, Line Patency, Line Care, Starting on Tue09/12/24 at 1622, Until Tue09/12/24 at 1932, Post-Procedure No Frequency Medication Order 09/10/2024 09/11/2024 09/12/2024 sodium chloride 0.9 % solution Starting on Tue09/12/24 at 1426, For 1 dose, Veronika Farmer: cabinet override 1430 (Due) sodium chloride 0.9% 0.9 % injection - ADS Override Pull Starting on Tue09/12/24 at 1426, Until Tue09/12/24 at 1932, For 1 dose, Veronika Farmer: cabinet override 1430 (Due) documented in this encounter Care Teams Pest Control Pilot Relationship Specialty Start Date End Date Charissa Cobb MD [address] [address] [address] [facility] [place] [address] PCP - General Family Practice 06/19/13 documented as of this encounter
--- OUTSIDE RECORDS SUMMARY | 2024-09-23 14:40 | XMS_ITS | Encounter Summary ---
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 we realized that the right atrial lead had pulled back into the SVC. Therefore he needed to be repositioned. Advancing the right atrial lead via the pectoral pocket just led to increasing slack near the pocket but would not advance up to the SVC. Therefore decision was made to use a sheath to try gain access into the axillary vein via the same location of the right ventricular lead. The right ventricular lead was then removed from the pacemaker pocket. Once access was obtained a long 035 wire was placed through the sheath. This was then used to place a 7 [place] sheath to allow us to replace the right atrial lead. The right atrial lead was taken out of the pocket. A 7 Fr peel away sheath was inserted over the other guidewire. The guidewire and dilator were removed. A Medtronic 3830 lead was advanced through the C-4 sheath to the basal right atrial septum. The lead was fixed in this position with a few turns of clockwise torque. Sensing, impedance, and pacing threshold were excellent. No phrenic stimulation was present with 10V pacing. The sheath was peeled away. Adequate slack in the lead was ensured during deep inspiration by the patient. The suture sleeve was advanced into the pocket where it was sutured with 0 Tevdek to the underlying pectoral muscle. The leads were securely attached to the ICD pulse generator. Antibiotic irrigation of the pocket was performed. The ICD pulse generator was placed in the pocket. Subcutaneous closure was done with 2-0 Vicryl suture. Subcuticular closure was done with 4-0 Vicryl suture. The incision was covered with sterile adhesive. The ICD pulse generator was programmed to its final settings. Please see the senior systems programmer printout for details. There were no complications. Estimated blood loss: minimal. Special individual features of this specific procedure: None. IMPLANTED DEVICE(S) AND THRESHOLD DATA: Right Atrial Lead Data: The right atrial lead was placed at the Septal/Fili's bundle region The RA lead is a Medtronic model 3830-59 lead. The right atrial pacing threshold was 1.2 volts with an impedance of 729 ohms and a current at threshold of 0.9 milliamps. The sensed P-wave amplitude was 2.9 millivolts. New Right Ventricular Lead Data: The new right ventricular lead was placed at the mid-right ventriclular septum and is a Medtronic model 6935M-62 lead. The right ventricular pacing threshold was 0.9 volts with an impedance of 677 ohms and a current at threshold of 0.8 milliamps. The sensed R-wave amplitude was 9.1 millivolts. New Permanent ICD Pulse Generator Data: The new ICD pulse generator is a Medtronic, [place] XT DR, model number [id number]. us Shahida Parnell APRN, BILINGUAL TRAINER PN ELECTROPHYSIOLO GY ORDERABLE Final Result Performing Organization Address [facility] de Phone Number POCT * INPATIENT TELEMETRY MONITORING (09/26/2024 7:31 AM CDT) TELE INTERPRETATION AV Paced Joel LOTT Radha 09/26/2024 7:31 AM CDT Narrative KAYLIE PRATT - 09/26/2024 7:33 AM CDT AV Paced Joel CARMEN us Interface Provider MD EKG Final Resu lt Performing Organization Address [facility] Co de Phone Number KAYLIE [facility] [address] [place] [address] * ECG 12 Lead Inpatient (09/26/2024 7:00 AM CDT) Ventricular Rate 61 BPM [facility] Atrial Rate 61 BPM [facility] P-R Interval 158 ms [facility] QRS Duration 162 ms [facility] QT 514 ms M[facility] QTC 517 ms [facility] P Demotte 72 degrees MUSE [facility] R Demotte 71 degrees MUSE [facility] T Demotte 270 degrees [facility] 09/26/2024 7:00 AM CDT Narrative [facility] - 09/26/2024 4:24 PM CDT AV pacing. Abnormal ECG When compared with ECG of 23-SEP-2024 14:50, Atrial pacing clearly seen. Premature ventricular complexes are no longer Present Vent. rate has decreased BY 18 BPM Confirmed by Dom Mora ([id number]) on 09/26/2024 4:24:45 PM Procedure Note Dom Mora MD - 09/26/2024 AV pacing. Abnormal ECG When compared with ECG of 23-SEP-2024 14:50, Atrial pacing clearly seen. Premature ventricular complexes are no longer Present Vent. rate has decreased BY 18 BPM Confirmed by Dom Mora ([id number]) on 09/26/2024 4:24:45 PM us Shahida Parnell YARN WRAPPER, BILINGUAL TRAINER PN ECG ORDERABLES Final Result [facility] [address] [place] [address] * (ABNORMAL) Complete Blood Count-No Diff (IN AM) (09/26/2024 4:36 AM CDT) WBC 4.3 3.5 - 10.5 x10(9)/L 09/26/2024 4:55 AM CDT [facility] RBC 4.22(L) 4.32 - 5.72 x10(12)/L 09/26/2024 4:55 AM CDT [facility] Hemoglobin 13.5 13.5 - 17.5 g/dL 09/26/2024 4:55 AM CDT [facility] HCT 39.3 38.8 - 50.0 % 09/26/2024 4:55 AM CDT [facility] MCV 93.1 80.0 - 100.0 fL 09/26/2024 4:55 AM CDT [facility] MCH 32.0 27.6 - 33.3 pg 09/26/2024 4:55 AM CDT [facility] MCHC 34.4 31.5 - 35.2 g/dL 09/26/2024 4:55 AM CDT [facility] RDW 12.3 11.9 - 15.5 % 09/26/2024 4:55 AM CDT [facility] Platelets 179 150 - 450 x10(9)/L 09/26/2024 4:55 AM CDT [facility] Automated NRBC 0 <=0 /100 WBC 09/26/2024 4:55 AM CDT [facility] Blood Venipuncture / Unknown 09/26/2024 4:36 AM CDT 09/26/2024 4:52 AM CDT us Palak Whaley MD LAB_1 Final Result [facility] [address] * Basic Metabolic Panel (IN AM) (09/26/2024 4:36 AM CDT) Sodium 138 136 - 145 mmol/L 09/26/2024 5:17 AM CDT [facility] Potassium 4.8 3.5 - 5.1 mmol/L 09/26/2024 5:17 AM CDT [facility] Chloride 106 98 - 109 mmol/L 09/26/2024 5:17 AM CDT [facility] CO2 21 20 - 29 mmol/L 09/26/2024 5:17 AM CDT [facility] Anion Gap 11 6 - 16 mmol/L 09/26/2024 5:17 AM CDT [facility] Calcium 9.4 8.4 - 10.4 mg/dL 09/26/2024 5:17 AM CDT [facility] BUN 21 7 - 26 mg/dL 09/26/2024 5:17 AM CDT [facility] Creatinine 1.02 0.73 - 1.18 mg/dL 09/26/2024 5:17 AM CDT [facility] Glucose 83 70 - 100 mg/dL 09/26/2024 5:17 AM CDT [facility] Comment:The given reference range is for the fasting state. Non-fasting reference range for glucose is 70 - 180 mg/dL. GFR, Estimated >60 >60 mL/min/1.7 3m2 09/26/2024 5:17 AM CDT [facility] Blood Venipuncture / Unknown 09/26/2024 4:36 AM CDT 09/26/2024 4:52 AM CDT us Palak Whaley MD LAB_1 Final Result Performing Organization Address [facility] Phone Number [facility] [address] [place] [address] * Magnesium (09/26/2024 4:36 AM CDT) Magnesium 2.3 1.6 - 2.6 mg/dL 09/26/2024 5:17 AM CDT [facility] Blood Venipuncture / Unknown 09/26/2024 4:36 AM CDT 09/26/2024 4:52 AM CDT us Palak Whaley MD LAB_1 Final Result Performing Organization Address [facility] Phone Number [facility] [address] [place] [address] * INPATIENT TELEMETRY MONITORING (09/25/2024 7:55 PM CDT) TELE QRS DURATION 0.17 [facility] TELE INTERPRETATION AV Paced HG, RN [facility] 09/25/2024 7:55 PM CDT Narrative [facility] - 09/25/2024 7:59 PM CDT AV Paced HG, RN us Interface Provider EKG Final Resu lt Performing Organization Address [facility] de Phone Number [facility] [address] [place] [address] * INPATIENT TELEMETRY MONITORING (09/25/2024 6:42 PM CDT) TELE P-R INTERVAL 0.18 [facility] TELE QRS DURATION 0.17 [facility] TELE R-R INTERVAL 1.00 [facility] TELE QT 0.47 [facility] TELE QTC 0.47 [facility] TELE INTERPRETATION AV Paced SHAISTA, RN [facility] 09/25/2024 6:42 PM CDT Narrative [facility] - 09/26/2024 3:33 AM CDT AV Paced HG, RN us Interface Provider EKG Final Resu lt Performing Organization Address City/[facility]/ZIP Co de Phone Number [facility] [address] [place] [address] * Potassium (09/25/2024 4:45 PM CDT) Potassium 4.3 3.5 - 5.1 mmol/L 09/25/2024 5:24 PM CDT [facility] Blood Venipuncture / Unknown 09/25/2024 4:45 PM CDT 09/25/2024 4:50 PM CDT us Palak Whaley MD LAB_1 Final Result Performing Organization Address City/[facility]/ZIP Co de Phone Number [facility] [address] [place], [place] [address] * Cardiac Cath Procedure (09/25/2024 11:25 AM CDT) 09/25/2024 11:2 5 AM CDT Narrative SYNAPSE - 09/25/2024 11:56 AM CDT Conclusions 1. Ifyu-pe-ohqgazya coronary artery atherosclerosis. 2. Coronary artery calcification. 3. Low LVEDP of 1 mmHg, likely indicating volume depletion. 4. Demand ischemia, in the setting of VT, likely accounts for the modest hs- Troponin elevation. Report Signatures Finalized by Les Adams on 09/25/2024 11:56 AM Event Lo09/25/2024 10:54:37 AM: Phase: Baseline 09/25/2024 10:56:45 AM: COR/LV PROCEDURE INFORMATION 09/25/2024 10:57:59 AM: Case Event Type:Diagnostic Cath,Physician:LES ADAMS 09/25/2024 11:03:23 AM: Patient arrived 09/25/2024 11:03:23 AM: Physician arrived 09/25/2024 11:12:31 AM: Patient name, birthdate and procedure 09/25/2024 11:12:31 AM: verified by patient and armband. 09/25/2024 11:12:31 AM: PD: The risks and alternatives of the procedures and conscious 09/25/2024 11:12:31 AM: sedation were explained to the patient. 09/25/2024 11:12:31 AM: PD: The presence of an accurate procedure consent 09/25/2024 11:12:32 AM: form was verified. 09/25/2024 11:12:32 AM: Special safety precautions based on patient history, 09/25/2024 11:12:32 AM: medication use and allergies. 09/25/2024 11:12:32 AM: Pertinent diagnostic and laboratory results available. 09/25/2024 11:12:32 AM: Availability of any special equipment/implants for procedure. 09/25/2024 11:12:32 AM: The need to administer antibiotics or fluid 09/25/2024 11:12:33 AM: for irrigation purposes. 09/25/2024 11:12:33 AM: Report received 09/25/2024 11:12:33 AM: Labs reviewed 09/25/2024 11:12:37 AM: Flush Bag of 1000 cc NS with 2000u Heparin 09/25/2024 11:12:37 AM: NTG on the table 09/25/2024 11:12:38 AM: Nicardipine on the table 09/25/2024 11:12:39 AM: PD: The patient was placed on the procedural table 09/25/2024 11:12:39 AM: Position: supine with elbow pads and pillow 09/25/2024 11:12:39 AM: Safety straps applied 09/25/2024 11:12:39 AM: Procedure reviewed with patient and questions answered. 09/25/2024 11:12:41 AM: Acceptable for right radial access 09/25/2024 11:12:50 AM: PD: The patient was prepped and draped in a sterile fashion. 09/25/2024 11:12:51 AM: Paced Rhythm. 09/25/2024 11:14:08 AM: Patient states comfortable 09/25/2024 11:14:18 AM: Conscious sedation (pre-procedure) 09/25/2024 11:14:18 AM: Pre-sedation assessment pt pain free, rm air, indep gait 09/25/2024 11:14:31 AM: SpO2 96%; HR 66 bpm; 145/83/109 NBP; LOC 2; LOP 0; RR 17/min EXP: 28 mmHg; 09/25/2024 11:14:33 AM: Patient has been reassessed for sedation by RN 09/25/2024 11:14:33 AM: and sedation is safe to administer 09/25/2024 11:14:34 AM: Medication double checked with: Margaux 09/25/2024 11:17:03 AM: Versed IV 1 mg 09/25/2024 11:17:07 AM: Fentanyl IV 50 mcg 09/25/2024 11:19:15 AM: SpO2 96%; HR 61 bpm; 126/72/94 NBP; LOC 2; RR 16/min EXP: 32 mmHg; 09/25/2024 11:21:13 AM: Versed IV 1 mg 09/25/2024 11:24:00 AM: Patient resting quietly, eyes closed 09/25/2024 11:24:12 AM: SpO2 94%; HR 59 bpm; 125/69/90 NBP; LOC 2; RR 16/min EXP: 34 mmHg; 09/25/2024 11:25:54 AM: Case Start 09/25/2024 11:25:54 AM: Pause for the cause - time out conducted 09/25/2024 11:26:39 AM: PD: 1% Lidocaine into right radial site 09/25/2024 11:26:40 AM: Case Start 09/25/2024 11:27:08 AM: 2L NC 09/25/2024 11:27:26 AM: PD: Arterial sheath inserted 09/25/2024 11:27:28 AM: 6 Fr Slender Glidesheath 09/25/2024 11:27:31 AM: Procedure: Right Radial Arterial Access 09/25/2024 11:27:36 AM: Nicardipine IA IA 200 mcg 09/25/2024 11:27:37 AM: Nitroglycerin IA IA 200 mcg 09/25/2024 11:28:42 AM: Catheter inserted 09/25/2024 11:28:47 AM: 5 FR JL 3.5 09/25/2024 11:29:15 AM: Patient resting quietly, eyes closed 09/25/2024 11:29:20 AM: SpO2 96%; HR 51 bpm; 108/55/75 NBP; LOC 2; RR 15/min EXP: 28 mmHg; 09/25/2024 11:29:24 AM: AO : 79/54/66, HR = 64, II 09/25/2024 11:29:24 AM: Snapshot: AO : 79/54/66 09/25/2024 11:29:29 AM: Injection 09/25/2024 11:29:32 AM: Left Coronary Angiography 09/25/2024 11:29:35 AM: Procedure: Left Coronary Angiography 09/25/2024 11:29:36 AM: PD: Appropriate catheters were used under fluoroscopic guidance 09/25/2024 11:29:36 AM: to selectively cannulate the left & right coronary artery 09/25/2024 11:29:50 AM: Injection 09/25/2024 11:30:02 AM: Injection 09/25/2024 11:30:04 AM: Heparin Bolus IV 5,000 units 09/25/2024 11:30:34 AM: Injection 09/25/2024 11:30:56 AM: Injection 09/25/2024 11:32:01 AM: Catheter removed 09/25/2024 11:32:27 AM: Catheter inserted 09/25/2024 11:32:30 AM: 5 FR JR 4 09/25/2024 11:33:10 AM: LV : 100/-8/1, Max dP/dt = 4883, HR = 72, II 09/25/2024 11:33:10 AM: Snapshot: LV : 100/-8/1 09/25/2024 11:33:11 AM: LV : 98/-11/0, Max dP/dt = 2127, HR = 70, II 09/25/2024 11:33:14 AM: Pullback from LV to AO 09/25/2024 11:33:15 AM: Snapshot: Pullback from LV to AO 09/25/2024 11:33:16 AM: Procedure: Left Heart Cath 09/25/2024 11:33:17 AM: AO : 93/53/31, HR = 70, II 09/25/2024 11:33:18 AM: Patient resting quietly, eyes closed 09/25/2024 11:33:18 AM: PD: A catheter was advanced across the aortic valve and 09/25/2024 11:33:19 AM: PD: pressures were recorded. 09/25/2024 11:33:36 AM: Injection - nonselective 09/25/2024 11:33:44 AM: Injection 09/25/2024 11:33:45 AM: Right Coronary Angiography 09/25/2024 11:33:46 AM: Procedure: Right Coronary Angiography 09/25/2024 11:34:08 AM: SpO2 92%; HR 66 bpm; 106/56/75 NBP; LOC 1; RR 16/min EXP: 29 mmHg; 09/25/2024 11:34:17 AM: Injection 09/25/2024 11:34:40 AM: Catheter removed 09/25/2024 11:34:43 AM: Case End 09/25/2024 11:34:50 AM: Post Procedure Information 09/25/2024 11:34:55 AM: Patient states comfortable 09/25/2024 11:34:56 AM: Patient arouses easily to voice 09/25/2024 11:35:00 AM: Contrast: OMNIPAQUE 350mg/mL 40 mL 09/25/2024 11:35:12 AM: SpO2 91%; HR 67 bpm; 102/55/75 NBP; LOC 1; LOP 0; RR 15/min EXP: 29 mmHg; 09/25/2024 11:35:56 AM: Radial Sheath Removed by: Portia 09/25/2024 11:35:56 AM: PD: Sheath removed, TR band applied. 09/25/2024 11:35:57 AM: TR Band applied 12 ml air injected. 09/25/2024 11:35:57 AM: CMS Intact, pulse palpable, no bleeding at site. 09/25/2024 11:36:19 AM: Patient instructed to keep affected extremity straight 09/25/2024 11:36:19 AM: and call nurse if signs of bleeding or discomfort. 09/25/2024 11:36:20 AM: PD: Patient tolerated procedure well. 09/25/2024 11:36:20 AM: Pain = 0 09/25/2024 11:36:24 AM: Puncture site clean, dry, intact, without hematoma 09/25/2024 11:36:25 AM: PD: Total Conscious Sedation Time: 17 mins 09/25/2024 11:36:37 AM: Conscious Sedation (post-procedure) 09/25/2024 11:36:37 AM: Post-sedation Assessment pt pain free, rm air 09/25/2024 11:36:47 AM: PD: Moderate sedation was administered under the physician's 09/25/2024 11:36:47 AM: PD: supervision for greater than 10 min. 09/25/2024 11:36:56 AM: Intake school laboratory technician: 100 ml 09/25/2024 11:37:01 AM: Output school laboratory technician: 0 09/25/2024 11:37:05 AM: Patient Transferred with R.N.on monitor 09/25/2024 11:37:07 AM: Patient Transferred with R.N. 09/25/2024 11:38:44 AM: Patient Transferred to: 3N 09/25/2024 11:39:09 AM: SpO2 94%; HR 60 bpm; 110/59/76 NBP; LOC 2; LOP 0; RR 19/min EXP: 29 mmHg; Inventory: 6 Fr [facility] JL 3.5 JR 4 Procedure Note Les Adams MD - 09/25/2024 Conclusions 1. Tmbl-od-bjfvhkbe coronary artery atherosclerosis. 2. Coronary artery calcification. 3. Low LVEDP of 1 mmHg, likely indicating volume depletion. 4. Demand ischemia, in the setting of VT, likely accounts for the modesths- Troponin elevation. Report Signatures Finalized by Les Adams on 09/25/2024 11:56 AM Event Lo09/25/2024 10:54:37 AM: Phase: Baseline 09/25/2024 10:56:45 AM: COR/LV PROCEDURE INFORMATION 09/25/2024 10:57:59 AM: Case Event Type:DiagnosticCath,Physician:LES ADAMS 09/25/2024 11:03:23 AM: Patient arrived 09/25/2024 11:03:23 AM: Physician arrived 09/25/2024 11:12:31 AM: Patient name, birthdate and procedure 09/25/2024 11:12:31 AM: verified by patient and armband. 09/25/2024 11:12:31 AM: PD: The risks and alternatives of the proceduresand conscious 09/25/2024 11:12:31 AM: sedation were explained to the patient. 09/25/2024 11:12:31 AM: PD: The presence of an accurate procedureconsent 09/25/2024 11:12:32 AM: form was verified. 09/25/2024 11:12:32 AM: Special safety precautions based on patienthistory, 09/25/2024 11:12:32 AM: medication use and allergies. 09/25/2024 11:12:32 AM: Pertinent diagnostic and laboratory resultsavailable. 09/25/2024 11:12:32 AM: Availability of any special equipment/implants forprocedure. 09/25/2024 11:12:32 AM: The need to administer antibiotics or fluid 09/25/2024 11:12:33 AM: for irrigation purposes. 09/25/2024 11:12:33 AM: Report received 09/25/2024 11:12:33 AM: Labs reviewed 09/25/2024 11:12:37 AM: Flush Bag of 1000 cc NS with 2000u Heparin 09/25/2024 11:12:37 AM: NTG on the table 09/25/2024 11:12:38 AM: Nicardipine on the table 09/25/2024 11:12:39 AM: PD: The patient was placed on the proceduraltable 09/25/2024 11:12:39 AM: Position: supine with elbow pads and pillow 09/25/2024 11:12:39 AM: Safety straps applied 09/25/2024 11:12:39 AM: Procedure reviewed with patient and questionsanswered. 09/25/2024 11:12:41 AM: Acceptable for right radial access 09/25/2024 11:12:50 AM: PD: The patient was prepped and draped in asterile fashion. 09/25/2024 11:12:51 AM: Paced Rhythm. 09/25/2024 11:14:08 AM: Patient states comfortable 09/25/2024 11:14:18 AM: Conscious sedation (pre-procedure) 09/25/2024 11:14:18 AM: Pre-sedation assessment pt pain free, rm air,indep gait 09/25/2024 11:14:31 AM: SpO2 96%; HR 66 bpm; 145/83/109 NBP; LOC 2; LOP 0;RR 17/min EXP: 28 mmHg; 09/25/2024 11:14:33 AM: Patient has been reassessed for sedation by RN 09/25/2024 11:14:33 AM: and sedation is safe to administer 09/25/2024 11:14:34 AM: Medication double checked with: Margaux 09/25/2024 11:17:03 AM: Versed IV 1 mg 09/25/2024 11:17:07 AM: Fentanyl IV 50 mcg 09/25/2024 11:19:15 AM: SpO2 96%; HR 61 bpm; 126/72/94 NBP; LOC 2; RR16/min EXP: 32 mmHg; 09/25/2024 11:21:13 AM: Versed IV 1 mg 09/25/2024 11:24:00 AM: Patient resting quietly, eyes closed 09/25/2024 11:24:12 AM: SpO2 94%; HR 59 bpm; 125/69/90 NBP; LOC 2; RR16/min EXP: 34 mmHg; 09/25/2024 11:25:54 AM: Case Start 09/25/2024 11:25:54 AM: Pause for the cause - time out conducted 09/25/2024 11:26:39 AM: PD: 1% Lidocaine into right radial site 09/25/2024 11:26:40 AM: Case Start 09/25/2024 11:27:08 AM: 2L NC 09/25/2024 11:27:26 AM: PD: Arterial sheath inserted 09/25/2024 11:27:28 AM: 6 Fr Slender Glidesheath 09/25/2024 11:27:31 AM: Procedure: Right Radial Arterial Access 09/25/2024 11:27:36 AM: Nicardipine IA IA 200 mcg 09/25/2024 11:27:37 AM: Nitroglycerin IA IA 200 mcg 09/25/2024 11:28:42 AM: Catheter inserted 09/25/2024 11:28:47 AM: 5 FR JL 3.5 09/25/2024 11:29:15 AM: Patient resting quietly, eyes closed 09/25/2024 11:29:20 AM: SpO2 96%; HR 51 bpm; 108/55/75 NBP; LOC 2; RR15/min EXP: 28 mmHg; 09/25/2024 11:29:24 AM: AO : 79/54/66, HR = 64, II 09/25/2024 11:29:24 AM: Snapshot: AO : 79/54/66 09/25/2024 11:29:29 AM: Injection 09/25/2024 11:29:32 AM: Left Coronary Angiography 09/25/2024 11:29:35 AM: Procedure: Left Coronary Angiography 09/25/2024 11:29:36 AM: PD: Appropriate catheters were used underfluoroscopic guidance 09/25/2024 11:29:36 AM: to selectively cannulate the left & right coronaryartery 09/25/2024 11:29:50 AM: Injection 09/25/2024 11:30:02 AM: Injection 09/25/2024 11:30:04 AM: Heparin Bolus IV 5,000 units 09/25/2024 11:30:34 AM: Injection 09/25/2024 11:30:56 AM: Injection 09/25/2024 11:32:01 AM: Catheter removed 09/25/2024 11:32:27 AM: Catheter inserted 09/25/2024 11:32:30 AM: 5 FR JR 4 09/25/2024 11:33:10 AM: LV : 100/-8/1, Max dP/dt = 4883, HR = 72, II 09/25/2024 11:33:10 AM: Snapshot: LV : 100/-8/1 09/25/2024 11:33:11 AM: LV : 98/-11/0, Max dP/dt = 2127, HR = 70, II 09/25/2024 11:33:14 AM: Pullback from LV to AO 09/25/2024 11:33:15 AM: Snapshot: Pullback from LV to AO 09/25/2024 11:33:16 AM: Procedure: Left Heart Cath 09/25/2024 11:33:17 AM: AO : 93/53/31, HR = 70, II 09/25/2024 11:33:18 AM: Patient resting quietly, eyes closed 09/25/2024 11:33:18 AM: PD: A catheter was advanced across the aorticvalve and 09/25/2024 11:33:19 AM: PD: pressures were recorded. 09/25/2024 11:33:36 AM: Injection - nonselective 09/25/2024 11:33:44 AM: Injection 09/25/2024 11:33:45 AM: Right Coronary Angiography 09/25/2024 11:33:46 AM: Procedure: Right Coronary Angiography 09/25/2024 11:34:08 AM: SpO2 92%; HR 66 bpm; 106/56/75 NBP; LOC 1; RR16/min EXP: 29 mmHg; 09/25/2024 11:34:17 AM: Injection 09/25/2024 11:34:40 AM: Catheter removed 09/25/2024 11:34:43 AM: Case End 09/25/2024 11:34:50 AM: Post Procedure Information 09/25/2024 11:34:55 AM: Patient states comfortable 09/25/2024 11:34:56 AM: Patient arouses easily to voice 09/25/2024 11:35:00 AM: Contrast: OMNIPAQUE 350mg/mL 40 mL 09/25/2024 11:35:12 AM: SpO2 91%; HR 67 bpm; 102/55/75 NBP; LOC 1; LOP 0;RR 15/min EXP: 29 mmHg; 09/25/2024 11:35:56 AM: Radial Sheath Removed by: Portia 09/25/2024 11:35:56 AM: PD: Sheath removed, TR band applied. 09/25/2024 11:35:57 AM: TR Band applied 12 ml air injected. 09/25/2024 11:35:57 AM: CMS Intact, pulse palpable, no bleeding at site. 09/25/2024 11:36:19 AM: Patient instructed to keep affected extremitystraight 09/25/2024 11:36:19 AM: and call nurse if signs of bleeding ordiscomfort. 09/25/2024 11:36:20 AM: PD: Patient tolerated procedure well. 09/25/2024 11:36:20 AM: Pain = 0 09/25/2024 11:36:24 AM: Puncture site clean, dry, intact, withouthematoma 09/25/2024 11:36:25 AM: PD: Total Conscious Sedation Time: 17 mins 09/25/2024 11:36:37 AM: Conscious Sedation (post-procedure) 09/25/2024 11:36:37 AM: Post-sedation Assessment pt pain free, rm air 09/25/2024 11:36:47 AM: PD: Moderate sedation was administered under thephysician's 09/25/2024 11:36:47 AM: PD: supervision for greater than 10 min. 09/25/2024 11:36:56 AM: Intake school laboratory technician: 100 ml 09/25/2024 11:37:01 AM: Output school laboratory technician: 0 09/25/2024 11:37:05 AM: Patient Transferred with R.N.on monitor 09/25/2024 11:37:07 AM: Patient Transferred with R.N. 09/25/2024 11:38:44 AM: Patient Transferred to: 3N 09/25/2024 11:39:09 AM: SpO2 94%; HR 60 bpm; 110/59/76 NBP; LOC 2; LOP 0;RR 19/min EXP: 29 mmHg; Inventory: 6 Fr Juliann Ren JL 3.5 JR 4 us Jame Parham MD PN CARDIAC CATH ORDERABLES Fin al Result Performing Organization Address [facility] Co de Phone Number SYNAPSE [address] [place] [id number] * INPATIENT TELEMETRY MONITORING (09/25/2024 7:50 AM CDT) TELE INTERPRETATION AV Paced Joel RN MUSE [facility] 09/25/2024 7:50 AM CDT Narrative MUSE [facility] - 09/25/2024 7:53 AM CDT AV Paced Joel RN us Interface Provider EKG Final Resu lt Performing Organization Address [facility] de Phone Number MUSE [facility] [address] [place] [address] * INPATIENT TELEMETRY MONITORING (09/25/2024 7:50 AM CDT) TELE INTERPRETATION Ventricular Paced Joel RN MUSE P 09/25/2024 7:50 AM CDT Narrative MUSE [facility] - 09/25/2024 7:52 AM CDT Ventricular Paced Joel RN us Interface Provider EKG Final Resu lt Performing Organization Address [facility] de Phone Number MUSE [facility] [address] [place] [address] * (ABNORMAL) Hepatic Function Panel (09/25/2024 5:25 AM CDT) Alkaline Phosphatase 96 40 - 150 U/L 09/25/2024 9:37 AM CDT [facility] Bilirubin, Total 0.7 0.2 - 1.2 mg/dL 09/25/2024 9:37 AM CDT [facility] Bilirubin, Direct 0.3 0.0 - 0.5 mg/dL 09/25/2024 9:37 AM CDT [facility] AST (SGOT) 36 10 - 40 U/L 09/25/2024 9:37 AM CDT [facility] ALT (SGPT) 33 0 - 55 U/L 09/25/2024 9:37 AM CDT [facility] Protein, Total 6.0(L) 6.4 - 8.3 g/dL 09/25/2024 9:37 AM CDT [facility] Albumin 3.7 3.5 - 5.0 g/dL 09/25/2024 9:37 AM CDT [facility] Blood Venipuncture / Unknown 09/25/2024 5:25 AM CDT 09/25/2024 5:37 AM CDT Palak Whaley MD LAB_1 Final Result Performing Organization Address [facility] de Phone Number [facility] [address] [place] [address] * Magnesium (09/25/2024 5:25 AM CDT) Pathologist [facility] Magnesium 2.0 1.6 - 2.6 mg/dL 09/25/2024 6:12 AM CDT [facility] Blood Venipuncture / Unknown 09/25/2024 5:25 AM CDT 09/25/2024 5:37 AM CDT Palak Whaley MD LAB_1 Final Result Performing Organization Address [facility] Phone Number [facility] [address] [place] [address] * (ABNORMAL) Complete Blood Count-No Diff (IN AM) (09/25/2024 5:25 AM CDT) WBC 3.3(L) 3.5 - 10.5 x10(9)/L 09/25/2024 5:40 AM CDT [facility] RBC 3.99(L) 4.32 - 5.72 x10(12)/L 09/25/2024 5:40 AM CDT [facility] Hemoglobin 12.8(L) 13.5 - 17.5 g/dL 09/25/2024 5:40 AM CDT [facility] HCT 37.5(L) 38.8 - 50.0 % 09/25/2024 5:40 AM CDT [facility] MCV 94.0 80.0 - 100.0 fL 09/25/2024 5:40 AM CDT [facility] MCH 32.1 27.6 - 33.3 pg 09/25/2024 5:40 AM CDT [facility] MCHC 34.1 31.5 - 35.2 g/dL 09/25/2024 5:40 AM CDT [facility] RDW 12.4 11.9 - 15.5 % 09/25/2024 5:40 AM CDT [facility] Platelets 174 150 - 450 x10(9)/L 09/25/2024 5:40 AM CDT [facility] Automated NRBC 0 <=0 /100 WBC 09/25/2024 5:40 AM CDT [facility] Blood Venipuncture / Unknown 09/25/2024 5:25 AM CDT 09/25/2024 5:37 AM CDT us Palak Whaley MD LAB_1 Final Result Performing Organization Address City/State/[facility] Co de Phone Number [facility] [address] * Basic Metabolic Panel (IN AM) (09/25/2024 5:25 AM CDT) Sodium 140 136 - 145 mmol/L 09/25/2024 6:12 AM CDT [facility] Potassium 3.9 3.5 - 5.1 mmol/L 09/25/2024 6:12 AM CDT [facility] Chloride 107 98 - 109 mmol/L 09/25/2024 6:12 AM CDT [facility] CO2 22 20 - 29 mmol/L 09/25/2024 6:12 AM CDT [facility] Anion Gap 11 6 - 16 mmol/L 09/25/2024 6:12 AM CDT [facility] Calcium 9.0 8.4 - 10.4 mg/dL 09/25/2024 6:12 AM CDT [facility] BUN 22 7 - 26 mg/dL 09/25/2024 6:12 AM CDT [facility] Creatinine 0.98 0.73 - 1.18 mg/dL 09/25/2024 6:12 AM CDT [facility] Glucose 85 70 - 100 mg/dL 09/25/2024 6:12 AM CDT [facility] Comment:The given reference range is for the fasting state. Non-fasting reference range for glucose is 70 - 180 mg/dL. GFR, Estimated >60 >60 mL/min/1.7 3m2 09/25/2024 6:12 AM CDT [facility] Blood Venipuncture / Unknown 09/25/2024 5:25 AM CDT 09/25/2024 5:37 AM CDT us Palak Whaley MD LAB_1 Final Result Performing Organization Address [facility] Co de Phone Number [facility] [address] * INPATIENT TELEMETRY MONITORING (09/24/2024 7:04 PM CDT) TELE P-R INTERVAL 0.17 MUSE [facility] TELE QRS DURATION 0.15 MUSE G[facility] TELE QT 0.43 MUSE [facility] TELE INTERPRETATION Ventricular Paced MUSE [facility] 09/24/2024 7:04 PM CDT Narrative MUSE [facility] - 09/24/2024 7:47 PM CDT Ventricular Paced us Interface Provider EKG Final Resu lt Performing Organization Address [facility] Co de Phone Number MUSE [facility] [address] [place] [address] * INPATIENT TELEMETRY MONITORING (09/24/2024 3:49 PM CDT) TELE INTERPRETATION Ventricular Paced Jennifer townsend RN MUSE [facility] 09/24/2024 3:49 PM CDT Narrative MUSE [facility] - 09/24/2024 3:53 PM CDT Ventricular Paced Jennifer townsend RN us Interface Provider EKG Final Resu lt Performing Organization Address [facility] Co de Phone Number MUSE [facility] [address] [place] [address] * INPATIENT TELEMETRY MONITORING (09/24/2024 9:28 AM CDT) TELE INTERPRETATION Ventricular Paced Jennifer Townsend RN MUSE [facility] 09/24/2024 9:28 AM CDT Narrative KAYLIE AREVALOP - 09/24/2024 9:31 AM CDT Ventricular Paced Jennifer Townsend RN us Interface Provider EKG Final Resu lt KAYLIE PRATT [address] [place] [phone] * Echocardiogram (09/24/2024 7:18 AM CDT) 09/24/2024 7:18 AM CDT Narrative PN ECHO - 09/24/2024 9:42 AM CDT Procedure type: ECHOCARDIOGRAM Procedure 09/24/2024 7:18 AM date/time: [facility] Study location: Portable SUMMARY: Normal biventricular size and function. Normal LV wall thickness No significant valvular abnormalities were identified. Pulmonary artery pressures cannot be estimated due to absence of adequate TR jet. No prior images. FINDINGS LEFT VENTRICLE: Left ventricular chamber size is normal. Normal left ventricular wall thickness. Left ventricular ejection fraction is visually estimated at 60%. Indeterminate diastolic function. RIGHT VENTRICLE: Normal right ventricle size and normal global function. A pacemaker lead is noted in the right ventricle. LEFT ATRIUM: Mild left atrial enlargement is present by 2D linear measurement. LILIANA could not be accurately calculated due to poor acoustic windows . RIGHT ATRIUM: Normal right atrium. MITRAL VALVE: Normal mitral valve structure and function. Trace mitral regurgitation. TRICUSPID VALVE: Normal tricuspid valve structure and function. Pulmonary artery pressures cannot be estimated due to absence of adequate TR jet. AORTIC VALVE: Normal aortic valve structure and function. AORTA/GREAT VESSELS: Mild dilation of the aorta is present involving the sinuses of Valsalva. (Maximal dimension 4.2 cm). The ascending aorta not well seen. The inferior vena cava is normal. PULMONARY VALVE: Normal pulmonic valve structure and function. Trace (physiologic) pulmonic regurgitation. PERICARDIUM & PLEURA: There is no pericardial effusion. LVOT LVOT diameter: 2.2 cm LVOT Area: 3.8 cm^2 AORTA Sinus of Valsalva: 4.1 cm Sinus of Valsalva Index: 2.18 cm/m Aortic Arch: 3.6 cm MITRAL VALVE Peak E-wave: 34.3 cm/s Peak A-wave: 52.6 cm/s E/A ratio: 0.65 Deceleration time: 352 ms LEFT ATRIUM LA dimension (2D): 4.3 cm LA Area (A4C): 25.4 cm^2 LA Volume (A4C): 84.2 ml LA Volume (A4C) Index: 37.9 ml/m^2 LEFT VENTRICLE LVIDd (2D): 4.9 cm LVIDs (2D): 3 cm Septum diastolic (2D): 1 cm Post wall diastolic (2D): 1 cm Rel wall thickness: 0.4 LV mass (ASE): 176 g LV mass (ASE) Index: 79.3 g/m^2 FS: 39 % LV DIASTOLIC FUNCTION E' septal velocity: 4.2 cm/s E' lateral velocity: 4.4 cm/s A' septal velocity: 8.5 cm/s A' lateral velocity: 8.8 cm/s E/E' Septal: 8.1 E/E' Lateral: 7.9 E/E' Average: 8 LEFT VENTRICLE: M-MODE LVEDV (Teich): 112.8 ml LVESV (Teich): 35 ml EF (Teichholz): 69 % EF Estimated: 60 % IVC IVC inspiration: 0.7 cm IVC expiration: 2.3 cm INDICATIONS Cardiomyopathy. PROCEDURE 2-D Quality: Good quality 2-dimensional echo was performed and interpreted. Doppler Quality: Good quality pulse, continuous wave, and color Doppler was performed and interpreted. Contrast medium: Optison Amount (ml): 3 Height: 74 in. Weight: 210 lb. Blood pressure: 104 / 65 mmHg BSA: 2.2 m^2 BMI: 27 kg/m^2 Rhythm: Paced Limitation reason: Poor acoustical window Procedure notes: *Patient scanned with defib patches on. *IV: Previously placed by Floor. *Suboptimal study; Echo dropout of the anterior, lateral, apical, septal and inferior wall/s. 6 of 6 segments in standard apical 4, 3 and 2 chamber view/s are not visualized on study. An image enhancer was used due to suboptimal endocardial definition. With the use of an image enhancer, the segments of the left ventricle were reasonably visualized. DEMOGRAPHICS Patient name: OBINNA Del Castillo Date of : 1945 Age: 79 year(s) Gender: Male Procedure Staff Interpreting DOM MORA MD Correction Officer Supervisor: Book Author: MARILUZ DAVIS Ordering Provider: ANGELIQUE ZHANG DO Attending Physician: WARD NGUYEN MD Procedure Note Dom Mora MD - 09/24/2024 Procedure type: ECHOCARDIOGRAM Procedure 09/24/2024 7:18 AM date/time: [facility] Study location: Portable SUMMARY: Normal biventricular size and function. Normal LV wall thickness No significant valvular abnormalities were identified. Pulmonary artery pressures cannot be estimated due to absence of adequate TR jet. No prior images. FINDINGS LEFT VENTRICLE: Left ventricular chamber size is normal. Normal left ventricular wall thickness. Left ventricular ejection fraction is visually estimated at 60%. Indeterminate diastolic function. RIGHT VENTRICLE: Normal right ventricle size and normal global function. A pacemaker lead is noted in the right ventricle. LEFT ATRIUM: Mild left atrial enlargement is present by 2D linear measurement. LILIANA could not be accurately calculated due to poor acoustic windows . RIGHT ATRIUM: Normal right atrium. MITRAL VALVE: Normal mitral valve structure and function. Trace mitral regurgitation. TRICUSPID VALVE: Normal tricuspid valve structure and function. Pulmonary artery pressures cannot be estimated due to absence of adequate TR jet. AORTIC VALVE: Normal aortic valve structure and function. AORTA/GREAT VESSELS: Mild dilation of the aorta is present involving the sinuses of Valsalva. (Maximal dimension 4.2 cm). The ascending aorta not well seen. The inferior vena cava is normal. PULMONARY VALVE: Normal pulmonic valve structure and function. Trace (physiologic) pulmonic regurgitation. PERICARDIUM & PLEURA: There is no pericardial effusion. LVOT LVOT diameter: 2.2 cm LVOT Area: 3.8 cm^2 AORTA Sinus of Valsalva: 4.1 cm Sinus of Valsalva Index: 2.18 cm/m Aortic Arch: 3.6 cm MITRAL VALVE Peak E-wave: 34.3 cm/s Peak A-wave: 52.6 cm/s E/A ratio: 0.65 Deceleration time: 352 ms LEFT ATRIUM LA dimension (2D): 4.3 cm LA Area (A4C): 25.4 cm^2 LA Volume (A4C): 84.2 ml LA Volume (A4C) Index: 37.9 ml/m^2 LEFT VENTRICLE LVIDd (2D): 4.9 cm LVIDs (2D): 3 cm Septum diastolic (2D): 1 cm Post wall diastolic (2D): 1 cm Rel wall thickness: 0.4 LV mass (ASE): 176 g LV mass (ASE) Index: 79.3 g/m^2 FS: 39 % LV DIASTOLIC FUNCTION E' septal velocity: 4.2 cm/s E' lateral velocity: 4.4 cm/s A' septal velocity: 8.5 cm/s A' lateral velocity: 8.8 cm/s E/E' Septal: 8.1 E/E' Lateral: 7.9 E/E' Average: 8 LEFT VENTRICLE: M-MODE LVEDV (Teich): 112.8 ml LVESV (Teich): 35 ml EF (Teichholz): 69 % EF Estimated: 60 % IVC IVC inspiration: 0.7 cm IVC expiration: 2.3 cm INDICATIONS Cardiomyopathy. PROCEDURE 2-D Quality: Good quality 2-dimensional echo was performed and interpreted. Doppler Quality: Good quality pulse, continuous wave, and color Doppler was performed and interpreted. Contrast medium: Optison Amount (ml): 3 Height: 74 in. Weight: 210 lb. Blood pressure: 104 / 65 mmHg BSA: 2.2 m^2 BMI: 27 kg/m^2 Rhythm: Paced Limitation reason: Poor acoustical window Procedure notes: *Patient scanned with defib patches on. *IV: Previously placed by Floor. *Suboptimal study; Echo dropout of the anterior, lateral, apical, septal and inferior wall/s. 6 of 6 segments in standard apical 4, 3 and 2 chamber view/s are not visualized on study. An image enhancer was used due to suboptimal endocardial definition. With the use of an image enhancer, the segments of the left ventricle were reasonably visualized. DEMOGRAPHICS Patient name: OBINNA Del Castillo Date of : 1945 Age: 79 year(s) Gender: Male Procedure Staff Interpreting DOM MORA MD Correction Officer Supervisor: Book Author: MARILUZ DAVIS Ordering Provider: ANGELIQUE ZHANG DO Attending Physician: WARD NGUYEN MD Angelique Zhang DO ET ECHO ORDERABLES Final Result PN ECHO * Magnesium (IN AM) (09/24/2024 5:01 AM CDT) Magnesium 2.1 1.6 - 2.6 mg/dL 09/24/2024 5:45 AM CDT [facility] Blood Venipuncture / Unknown 09/24/2024 5:01 AM CDT 09/24/2024 5:20 AM CDT Angelique Zhang DO LAB_1 Final Result Performing Organization Address City/[facility]/ZIP Co de Phone Number [facility] [address] [place] [address] * Basic Metabolic Panel (IN AM) (09/24/2024 5:01 AM CDT) Sodium 142 136 - 145 mmol/L 09/24/2024 5:45 AM CDT [facility] Potassium 4.2 3.5 - 5.1 mmol/L 09/24/2024 5:45 AM CDT [facility] Chloride 108 98 - 109 mmol/L 09/24/2024 5:45 AM CDT [facility] CO2 24 20 - 29 mmol/L 09/24/2024 5:45 AM CDT [facility] Anion Gap 10 6 - 16 mmol/L 09/24/2024 5:45 AM CDT [facility] Calcium 9.2 8.4 - 10.4 mg/dL 09/24/2024 5:45 AM CDT [facility] BUN 17 7 - 26 mg/dL 09/24/2024 5:45 AM CDT [facility] Creatinine 1.02 0.73 - 1.18 mg/dL 09/24/2024 5:45 AM CDT [facility] Glucose 93 70 - 100 mg/dL 09/24/2024 5:45 AM CDT [facility] Comment:The given reference range is for the fasting state. Non-fasting reference range for glucose is 70 - 180 mg/dL. GFR, Estimated >60 >60 mL/min/1.7 3m2 09/24/2024 5:45 AM CDT [facility] Blood Venipuncture / Unknown 09/24/2024 5:01 AM CDT 09/24/2024 5:20 AM CDT Angelique Zhang DO LAB_1 Final Result [facility] [address] * (ABNORMAL) Complete Blood Count-No Diff (IN AM) (09/24/2024 5:01 AM CDT) WBC 4.7 3.5 - 10.5 x10(9)/L 09/24/2024 5:25 AM CDT [facility] RBC 4.07(L) 4.32 - 5.72 x10(12)/L 09/24/2024 5:25 AM CDT [facility] Hemoglobin 12.8(L) 13.5 - 17.5 g/dL 09/24/2024 5:25 AM CDT [facility] HCT 38.3(L) 38.8 - 50.0 % 09/24/2024 5:25 AM CDT [facility] MCV 94.1 80.0 - 100.0 fL 09/24/2024 5:25 AM CDT [facility] MCH 31.4 27.6 - 33.3 pg 09/24/2024 5:25 AM CDT [facility] MCHC 33.4 31.5 - 35.2 g/dL 09/24/2024 5:25 AM CDT [facility] RDW 12.6 11.9 - 15.5 % 09/24/2024 5:25 AM CDT [facility] Platelets 194 150 - 450 x10(9)/L 09/24/2024 5:25 AM CDT [facility] Automated NRBC 0 <=0 /100 WBC 09/24/2024 5:25 AM CDT [facility] Blood Venipuncture / Unknown 09/24/2024 5:01 AM CDT 09/24/2024 5:20 AM CDT us Angelique Zhang DO LAB_1 Final Result Performing Organization Address [facility] Co de Phone Number [facility] [address] [place] [id number] * INPATIENT TELEMETRY MONITORING (09/24/2024 12:16 AM CDT) TELE INTERPRETATION Ventricular Paced Brielle Strickland RN MUSE [facility] 09/24/2024 12:1 6 AM CDT Narrative MUSE [facility] - 09/24/2024 3:50 AM CDT Ventricular Paced Brielle Strickland RN us Interface Provider EKG Final Resu lt Performing Organization Address [facility] de Phone Number MUSE [facility] [address] [place] [address] * INPATIENT TELEMETRY MONITORING (09/23/2024 7:00 PM CDT) TELE P-R INTERVAL 0.20 MUSE [facility] TELE QRS DURATION 0.13 MUSE G[facility] TELE R-R INTERVAL 0.97 MUSE GHP TELE QT 0.41 MUSE GHP TELE QTC 0.41 MUSE G[facility] TELE INTERPRETATION DOC townsend RN MUSE G[facility] 09/23/2024 7:00 PM CDT Narrative MUSE [facility] - 09/23/2024 7:04 PM CDT DOC townsend RN us Interface Provider EKG Final Resu lt Performing Organization Address [facility] de Phone Number MUSE [facility] [address] [place] [address] * CT Head WO IV Cont (09/23/2024 6:01 PM CDT) Anatomical Region Laterality Modality Head Computed Tomogra phy 09/23/2024 5:52 PM CDT Impressions 09/23/2024 6:06 PM CDT No acute intracranial finding. No significant change since 02/29/2024. Narrative 09/23/2024 6:06 PM CDT COMPARISON: 02/29/2024 TECHNIQUE: Images of the head were obtained without contrast. FINDINGS: Mild generalized parenchymal volume loss. Mild to moderate periventricular white matter hypodensities most cerebral hemispheres, nonspecific but most likely related to chronic small vessel ischemic disease. Encephalomalacia along the posterior aspect of the right parietal lobe, unchanged. No hemorrhage, hydrocephalus, herniation, or mass effect. Rosen-white matter differentiation remains preserved. Visualized paranasal sinuses and mastoid air cells are clear. No acute bony abnormality. Mild vascular calcifications. Procedure Note Kehinde Berry MD - 09/23/2024 COMPARISON: 02/29/2024 TECHNIQUE: Images of the head were obtained without contrast. FINDINGS: Mild generalized parenchymal volume loss. Mild to moderateperiventricular white matter hypodensities most cerebral hemispheres,nonspecific but most likely related to chronic small vessel ischemicdisease. Encephalomalacia along the posterior aspect of the right parietallobe, unchanged. No hemorrhage, hydrocephalus, herniation, or mass effect.Rosen-white matter differentiation remains preserved. Visualized paranasalsinuses and mastoid air cells are clear. No acute bony abnormality. Mildvascular calcifications. IMPRESSION No acute intracranial finding. No significant change since 02/29/2024. us Angelique Zhang DO RAD CT Final Result * XR Portable Chest 1 View (09/23/2024 5:41 PM CDT) Anatomical Region Laterality Modality Chest, Lung Computed Radiogr aphy 09/23/2024 5:27 PM CDT Narrative 09/23/2024 5:45 PM CDT COMPARISON: 09/12/2024 FINDINGS: Left chest implanted cardiac device with intact leads in stable position. Calcified left hilar nodes. Normal cardiomediastinal silhouette and pulmonary vasculature. Streaky bibasilar opacities, left more so than right, probably atelectatic. No new or acute airspace opacity. No pneumothorax or pleural effusion. Bony thorax is unremarkable. Procedure Note Efrain Sim MD - 09/23/2024 COMPARISON: 09/12/2024 FINDINGS: Left chest implanted cardiac device with intact leads in stableposition. Calcified left hilar nodes. Normal cardiomediastinal silhouetteand pulmonary vasculature. Streaky bibasilar opacities, left more so thanright, probably atelectatic. No new or acute airspace opacity. Nopneumothorax or pleural effusion. Bony thorax is unremarkable. us Angelique Zhang DO RAD PORTABLE Final Result * (ABNORMAL) hs-troponin i (2 hour) (09/23/2024 5:26 PM CDT) [facility] hs-troponin i (2 hour) 99(H) <=35 ng/L 09/23/2024 6:09 PM CDT [facility] hs-troponin i change 56(H) -2 - 2 ng/L 09/23/2024 6:09 PM CDT [facility] Comment:Changing Blood Venipuncture / Unknown 09/23/2024 5:26 PM CDT 09/23/2024 5:34 PM CDT Angelique Nohemy Zhang LAB_1 Final Result Performing Organization Address [facility] Phone Number [facility] [address] [place] [address] * (ABNORMAL) hs-troponin i (0 hour) (09/23/2024 3:06 PM CDT) [facility] hs-troponin i (0 hour) 43(H) <=35 ng/L 09/23/2024 5:07 PM CDT [facility] Comment:Criteria met a timed 2h reflex order has been created. Blood Venipuncture / Unknown 09/23/2024 3:06 PM CDT 09/23/2024 3:11 PM CDT Angelique Nohemy Leatha GREEN LAB_1 Final Result Performing Organization Address [facility] Co ct Phone Number [facility] [address] [place] [address] * Magnesium (09/23/2024 3:06 PM CDT) [facility] Magnesium 2.0 1.6 - 2.6 mg/dL 09/23/2024 5:00 PM CDT [facility] Blood Venipuncture / Unknown 09/23/2024 3:06 PM CDT 09/23/2024 3:11 PM CDT us Angelique Zhang DO LAB_1 Final Result [facility] [address] [place], [place] [id number] [place] [address] * (ABNORMAL) Complete Blood Count-W/Diff (09/23/2024 3:06 PM CDT) WBC 5.1 3.5 - 10.5 x10(9)/L 09/23/2024 3:14 PM CDT [facility] RBC 4.06(L) 4.32 - 5.72 x10(12)/L 09/23/2024 3:14 PM CDT [facility] Hemoglobin 12.8(L) 13.5 - 17.5 g/dL 09/23/2024 3:14 PM CDT [facility] HCT 37.4(L) 38.8 - 50.0 % 09/23/2024 3:14 PM CDT [facility] MCV 92.1 80.0 - 100.0 fL 09/23/2024 3:14 PM CDT [facility] MCH 31.5 27.6 - 33.3 pg 09/23/2024 3:14 PM CDT [facility] MCHC 34.2 31.5 - 35.2 g/dL 09/23/2024 3:14 PM CDT [facility] RDW 12.4 11.9 - 15.5 % 09/23/2024 3:14 PM CDT [facility] Platelets 192 150 - 450 x10(9)/L 09/23/2024 3:14 PM CDT [facility] Automated NRBC 0 <=0 /100 WBC 09/23/2024 3:14 PM CDT [facility] Neutrophil Absolute 4.0 1.7 - 7.0 10(9)/L 09/23/2024 3:14 PM CDT [facility] Lymphocyte Absolute 0.5(L) 1.0 - 4.8 10(9)/L 09/23/2024 3:14 PM CDT [facility] Monocyte Absolute 0.5 0.2 - 0.9 10(9)/L 09/23/2024 3:14 PM CDT [facility] Eosinophil Absolute 0.0 0.0 - 0.5 10(9)/L 09/23/2024 3:14 PM CDT [facility] Basophil Absolute 0.0 0.0 - 0.3 10(9)/L 09/23/2024 3:14 PM CDT [facility] Immature Granulocyte % 0.2 0.0 - 0.5 % 09/23/2024 3:14 PM CDT [facility] Blood Venipuncture / Unknown 09/23/2024 3:06 PM CDT 09/23/2024 3:11 PM CDT us Ward Nugyen MD LAB_1 Final Result Performing Organization Address City/State/[facility] Co de Phone Number [facility] [address] * BMP (09/23/2024 3:06 PM CDT) Sodium 137 136 - 145 mmol/L 09/23/2024 3:35 PM CDT [facility] Potassium 4.7 3.5 - 5.1 mmol/L 09/23/2024 3:35 PM CDT [facility] Chloride 104 98 - 109 mmol/L 09/23/2024 3:35 PM CDT [facility] CO2 22 20 - 29 mmol/L 09/23/2024 3:35 PM CDT [facility] Anion Gap 11 6 - 16 mmol/L 09/23/2024 3:35 PM CDT [facility] Calcium 9.6 8.4 - 10.4 mg/dL 09/23/2024 3:35 PM CDT [facility] BUN 25 7 - 26 mg/dL 09/23/2024 3:35 PM CDT [facility] Creatinine 1.16 0.73 - 1.18 mg/dL 09/23/2024 3:35 PM CDT [facility] Glucose 99 70 - 100 mg/dL 09/23/2024 3:35 PM CDT [facility] Comment:The given reference range is for the fasting state. Non-fasting reference range for glucose is 70 - 180 mg/dL. GFR, Estimated >60 >60 mL/min/1.7 3m2 09/23/2024 3:35 PM CDT [facility] Blood Venipuncture / Unknown 09/23/2024 3:06 PM CDT 09/23/2024 3:11 PM CDT us Ward Nguyen MD LAB_1 Final Result Performing Organization Address [facility] Co de Phone Number [facility] [address] * Pacemaker Evaluation (09/23/2024 2:56 PM CDT) 09/23/2024 2:56 PM CDT Narrative [facility] - 09/23/2024 2:56 PM CDT Dual chamber pacemaker functioning as programmed. This is a Carbon Black transmission. Pt presented to [facility] for evaluation of syncope. The device was interrogated to assess data and settings. Observations show Alert: 1 or more monitored VT episodes detected. The longest episode lasting 15.5 minutes at 300 bpm on 23-Sep-2024 12:58. 23 NSVT episodes noted, lasting 1-2 seconds at 157-282 bpm. 2 monitored VT episodes noted No atrial high rate episodes noted. See attached episode list and stored EGMs for details. Recommend review of stored EGMs for rhythm determination. RV paced 95%. Battery voltage WNL. Data provided to requesting MD at time of point of care. Data reviewed by Pacemaker/ICD clinic staff and agree with findings. Please contact if any questions. DSK us Palak Whaley MD PN ELECTROPHYSIOLOGY ORDERABLE F inal Result Performing Organization Address [facility]/ZIP Co de Phone Number [facility] * ECG 12 Lead (09/23/2024 2:50 PM CDT) Ventricular Rate 79 BPM MUSE GHP Atrial Rate 79 BPM MUSE GHP P-R Interval 164 ms MUSE GHP QRS Duration 152 ms MUSE GHP QT 458 ms MUSE GHP QTC 525 ms MUSE GHP P Demotte 30 degrees MUSE GHP R Demotte 57 degrees MUSE GHP T Demotte 248 degrees MUSE GHP 09/23/2024 2:50 PM CDT Narrative MUSE GHP - 09/23/2024 5:59 PM CDT Atrial-sensed ventricular-paced rhythm with occasional Premature ventricular complexes Abnormal ECG When compared with ECG of 12-SEP-2024 16:31, Premature ventricular complexes are now Present Vent. rate has increased BY 11 BPM Confirmed by Ward Nguyen ([id number]) on 09/23/2024 5:59:30 PM Procedure Note Ward Nguyen MD - 09/23/2024 Atrial-sensed ventricular-paced rhythm with occasional Prematureventricular complexes Abnormal ECG When compared with ECG of 12-SEP-2024 16:31, Premature ventricular complexes are now Present Vent. rate has increased BY 11 BPM Confirmed by Ward Nguyen ([id number]) on 09/23/2024 5:59:30 PM Urvashi Villalobos MD PN ECG ORDERABLES Final Re sult [facility] [address] [place] [address] documented in this encounter Visit Diagnoses Diagnosis Sustained ventricular tachycardia (HRC)- Primary Paroxysmal ventricular tachycardia Ventricular tachycardia (paroxysmal) (HRC) Paroxysmal ventricular tachycardia Syncope, cardiogenic Syncope and collapse Syncope Syncope and collapse Ostium secundum type atrial septal defect History of prostate cancer Personal history of malignant neoplasm of prostate SSS (sick sinus syndrome) (HRC) Sinoatrial node dysfunction Cardiac pacemaker in situ Chronic anemia Anemia, unspecified History of stroke Transient ischemic attack (TIA), and cerebral infarction without residual deficits Elevated troponin Other abnormal blood chemistry * Plan of Care - Lion Gonzalez RN - 09/27/2024 11:02 AM CDT Nursing; dc D; up ad ankit Dual paced; no ectopy; vss A; dc to [id number] R; verbalizes teaching Lion Gonzalez RN 11:04 AM 09/27/2024 * Plan of Care - Hanna Quach RN - 09/26/2024 11:08 AM CDT TRANSFER O: Safe transfer to: 3E. Safe transfer from: 3NS. D: MD order to transfer to: Tele related to post ICD placement. A: All belongings: received. Report called to Hanna from [facility]. Discussed plan of care with patient . Medications arrived. Re-oriented to new room. Call light in reach. Bed alarm: on R: Patient arrived via: cart from [facility]. Patient settled into bed. Will continue to monitor. * Plan of Care - Maranda Maldonado RN - 09/26/2024 10:15 AM CDT TRANSFER O: Safe transfer to: 3E. Safe transfer from: 3. D: MD order to transfer to: Tele related to need for continued cares after ICD placement . A: All belongings: sent. Report called to Adal CARMEN. Discussed plan of care with family. Medications sent. Pt to 3E after ICD placement R: Patient transferred via: cart. Patient arrived via: cart. * Plan of Care - Maranda Maldonado RN - 09/26/2024 8:00 AM CDT Pt went to [facility] for ICD placement monitored * Plan of Care - Charlene Wellington RN - 09/26/2024 6:05 AM CDT Nursing shift update [id number] Pt A/Ox4, VSS on RA. 100% AV paced on tele with HR in the 60s. Ambulating in room. R radial site remains CDI. Denies pain or SOB. ICD upgrade this AM. * Plan of Care - Maranda Maldonado RN - 09/25/2024 2:56 PM CDT IPRN Transradial (TR) Band Removal O: TR Band will be removed without complications. D: Pre-procedure: TR Band location: right; site condition: no drainage, no pain, no swelling, no hematoma, no ecchymosis; radial pulses: 2+; and CMS status: capillary refill less than 3 seconds, 2+ radial pulse, normal sensation, extremity warm, color pink, or no tingling A: Patient educated regarding procedure. Air removal began at 1330 , after band in place for 1 hour. Per protocol: 2 mL of air released no less than every five minutes until band deflated. Bleeding assessed at each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 suppository DAILY PRN until patient stools. When patient stools, stop giving PRN meds and continue monitoring for bowel activity. When no stools X 1 day, begin regimen again until patient stools. Do not give if Absolute Neutrophil Count (ANC) is 1 k/cmm or less OR platelet count is 50 k/cmm or less. documented in this encounter Care Teams Director Personal Relationship Specialty Start Date End Date Charissa Cobb MD [address] [place] [address] [place] [address] PCP - General Family Practice 06/19/13 documented as of this encounter
--- OUTSIDE RECORDS SUMMARY | 2024-10-01 11:30 | XMS_ITS | Encounter Summary ---
[facility] Address [address] [place] [address] Care Team Providers Care Old Testament Professor Name Role Phone Charissa Cobb MD Primary Care Provider Reason for Visit * Reason Comments Nurse Visit ECG for Sotalol Encounter Details Date Type Department Care Team (Late st Contact Info) Description 10/01/2024 11:30 AM CDT Nursing Visit [facility] [address] [facility] [place] [address] Nurse, [id number] Ephys Sustained ventricular tachycardia (HRC) (Primary Dx) Social History Tobacco Use Types Packs/Day Years Used Date Smoking Tobacco: Former Cigarettes 1 8 0 08/01/1961 - 08/01/1969 Smokeless Tobacco: Never Alcohol Use Standard Drinks/Week Comments Yes 12 (1 standard drink = 0.6 oz pu re alcohol) wine with dinner [facility] Utilities Answer Date Recorded In the past 12 months has [place], gas, oil, or water company threatened to [...] money to buy more. Never true 09/27/19 Within the past 12 months, t he [...] any time in the past 12 m [facility], were you homeless or living in a nursing home (including now)? No 09/23/2024 Sex and Gender [...] as of this encounter Progress Notes * Michelle Beck RN - 10/01/2024 11:30 AM CDT Patient in clinic for an Electrophysiology Nurse Visit to assess the safety and effectiveness of sotalol following start on 09/26/24. Medications and allergies reviewed and any changes have been updated in EPIC. Subjective Complaints/Comments: Pt confirms he has taken sotalol 80 mg BID since initiating. Denies nausea, dizziness, [place] or other concerns. Objective Findings: Pt appearance: alert, no distress. BP: RR: SaO2: Edema: Today's EKG shows: AV paced rhythm V-rate: 70 bpm OK: 184 ms QRS: 160 ms QT/QTc: 454/490 ms Previous EKG showed: AV paced rhythm 09/27 V-rate: 64 bpm OK: 184 ms QRS: 164 ms QT/QTc: 488/503 ms Assessment: No complaints or abnormal findings. Plan: Continue on current dose of sotalol unchanged. F/U with Shahida 10/16 and device check. Chart cc'd to Shahida Parnell STUDENT DEVELOPMENT COORDINATOR as FYI. documented in this encounter Plan of Treatment Upcoming Encounters Date Type Department Care Team (Late st Contact Info) Description 10/16/2024 10:15 AM CDT Appointment [facility] [address] [facility] [place] [address] 10/16/2024 11:40 AM CDT Appointment [facility] [address] [facility] [place] [address] Shahida Parnell, ART TRACER, DIRECTOR OF EDUCATION [address] [place] [address] 10/23/2024 7:45 AM CDT Appointment [place] [id number] [place] [address] 11/28/2024 10:30 AM CDT Appointment [facility] [address] [facility] [address] Zahida Calloway MD [address] [place] [address] 02/12/2025 8:45 AM CDT Appointment [facility] [address] [place] [address] Palma Villegas MD [address] [facility] [place] [address] 04/10/2025 2:20 PM ABALONE SHELLER Appointment [facility] [address] [address] [address] [place] [address] documented as of this encounter Procedures Procedure Name Priority Date/Time Associated Diagnosis Comments ECG 12 LEAD OUTPATIENT Routine 10/01/2024 9:41 AM CDT Sustained ventricular tachycardia (HRC) documented in this encounter Results * ECG 12 Lead Outpatient (10/01/2024 9:41 AM CDT) Ventricular Rate 70 BPM [facility] Atrial Rate 70 BPM [facility] P-R Interval 184 ms [facility] QRS Duration 160 ms [facility] QT 454 ms [facility] QTC 490 ms [facility] P [place] 73 degrees MUSE [facility] R [place] -67 degrees MUSE [facility] T [place] 97 degrees [facility]USE [facility] 10/01/2024 9:41 AM CDT Narrative [facility] - 10/01/2024 10:19 AM CDT AV dual-paced rhythm Abnormal ECG When compared with ECG of 27-SEP-2024 07:19, Vent. rate has increased BY 6 BPM Confirmed by Dom Joseph ([id number]) on 10/01/2024 10:19:00 AM Procedure Note Dom Joseph MD - 10/01/2024 AV dual-paced rhythm Abnormal ECG When compared with ECG of 27-SEP-2024 07:19, Vent. rate has increased BY 6 BPM Confirmed by Dom Joseph ([id number]) on 10/01/2024 10:19:00 AM us Abhijit Girard MD PN ECG ORDERABLES Final Resul t [facility] [address] [place] [address] documented in this encounter Visit Diagnoses Diagnosis Sustained ventricular tachycardia (HRC)- Primary Paroxysmal ventricular tachycardia documented in this encounter Care Teams Old Testament Professor Relationship Specialty Start Date End Date Charissa Cobb MD [address] [place] [address] [place] [address] PCP - General Family Practice 06/19/13 documented as of this encounter
--- OUTSIDE RECORDS SUMMARY | 2024-10-05 07:40 | XMS_ITS | Encounter Summary ---
Author Organization [facility] Address [address] [place] [address] Care Team Providers Care Sewage Plant Operator Name Role Phone Charissa Cobb MD Primary Care Provider [phone] Reason for Visit * Reason Comments Routine Eye Exam Encounter Details Date Type Department Care Team (Latest Contact Info) Description 10/05/2024 7:40 AM CDT Office Visit Optometry at [facility] [address] [place] [address] Billy Mao, OD [address] [place] [address] [place] [address] Visit for eye and vision exam (Primary Dx); Myopia of left eye; Regular astigmatism of right eye; Hyperopia of right eye; Presbyopia; Pseudophakia of both eyes; Posterior vitreous detachment of both eyes Social History Tobacco Use Types Packs/Day Years Used Date Smoking Tobacco: Former Cigarettes 1 8 0 08/01/1961 - 08/01/1969 Smokeless Tobacco: Never Alcohol Use Standard Drinks/Week Comments Yes 12 (1 standard drink = 0.6 oz pu re alcohol) wine with dinner [facility] Utilities Answer Date Recorded In the [...] any time in the past 12 m [facility], were you homeless or living in a senior care (including now)? No 09/23/2024 Sex and Gender [...] on file documented as of this encounter Patient Instructions * Patient Instructions* Billy Mao, OD - 10/05/2024 7:40 AM CDT Thank you for allowing me to participate in your care at [facility]. If you have any questions regarding your visit today, please feel free to reach out via [employer]. Preventative Eye Care: UV Protection: UV light can be damaging to your eyes just like it can be to your skin. When searching for sunglasses, make sure that they have a rating of UV400 or higher. This means they???ll filter 99.9% of both UVA and UVB rays. Overexposure to either can cause damage to the eye. Polarized glasses can also be helpful because they cut down on the horizontal light that is common when driving or spending time on the hwang. They are recommended in addition to UV protection. Diet and Nutrition: Lutein and Zeaxanthin are antioxidants found in the lens and retina of the eye. They are vital for the central part of your vision. They are also suspected to reduce damage from the blue light emitted from computer screens as well. They are found in dark, leafy vegetables such as kale, spinach, broccoli, and brussel sprouts. Smoking cessation is an important aspect of your eye health as some eye diseases can get worse withsmoking. [facility] have health coaches to assist you in being tobacco free. If interested, call [phone]. Eye Drops: Dryness: Refresh, Systane, Blink Allergies: Zaditor, Alaway, Pataday Avoid: Visine, Clear Eyes, Opcon-A The active ingredients in these drops are either Tetrahydrozoline or Naphazoline. They work by artificially clamping down on the blood vessels that are visible. This may work temporarily but with longterm use it can cause the blood vessels to become larger and more visible. Computer Use: A good rule of thumb for not straining your eyes while at the computer is the 20-20-20 rule. Every 20 minutes look at something 20 feet away for 20 seconds. Other helpful hints are to try blue-light blocking glasses, change the lighting on the computer, adjust computer for a healthy posture, and give yourself time to blink fully as blinking is severely reduced with screen time. Dilation: Dilation drops may have been used today. These drops allow us to have a clearer, wider view inside the eye to look for signs of eye disease. Your vision could be blurry up close and pupils may look larger for up to 4 to 6 hours. It is recommended that you wear sunglasses when you are outside today.If you do not have any sunglasses with you, there are some disposable ones available. Please use caution in getting around for the few hours that your eyes are dilated. documented in this encounter Progress Notes * Billy Mao, HARESH - 10/05/2024 7:40 AM CDT Chief Complaint Patient presents with Routine Eye Exam HPI Alex is here today for a routine eye exam. Last visit was 08/29/2023 with . New to this provider. Denies vision problems or changes. Denies redness, itching, or dryness. No drops or ointments used. Has not worn glasses since his cataract surgery. Last edited by Melody Hood COA on 10/05/2024 7:44 AM. History Reviewed I have personally reviewed the patient's allergies, medications, past medical history and problem list in detail and updated the patient record as necessary. Patient displays normal affect and orientation with no signs of distress. Assessment: 1. Visit for eye and vision exam 2. Myopia of left eye 3. Regular astigmatism of right eye 4. Hyperopia of right eye 5. Presbyopia 6. Pseudophakia of both eyes 7. Posterior vitreous detachment of both eyes Plan: 1-5. Spectacle prescription given. Return for follow-up as directed. 6. Stable. Monitor. 7. Stable. Monitor. Return in about 1 year (around 10/05/2025) for Comprehensive Eye Exam. Billy Mao OD documented in this encounter Plan of Treatment Upcoming Encounters Date Type Department Care Team (Late st Contact Info) Description 10/16/2024 10:15 AM CDT Appointment [facility] [address] [place] [address] 10/16/2024 11:40 AM CDT Appointment [facility] [address] [place] [address] Shahida Parnell, MED SPEC, TUNGSTEN TENDER [address] [place] [address] 10/23/2024 7:45 AM CDT Appointment [facility] [address] [place] [address] 11/28/2024 10:30 AM CDT Appointment [facility] [address] [facility] [address] [facility] [place] [place] [address] Zahida Calloway MD [address] [place] [address] 02/12/2025 8:45 AM CDT Appointment [facility] [address] [place] [address] Palma Villegas MD [address] [place] [address] [place] [address] 04/10/2025 2:20 PM FARM MANAGER Appointment [facility] [address] [address] Cheryl De Leon, [address] [place] [address] documented as of this encounter Visit Diagnoses Diagnosis Visit for eye and vision exam- Primary Examination of eyes and vision Myopia of left eye Myopia Regular astigmatism of right eye Regular astigmatism Hyperopia of right eye Presbyopia Pseudophakia of both eyes Lens replaced by other means Posterior vitreous detachment of both eyes Vitreous degeneration documented in this encounter Care Teams Sewage Plant Operator Relationship Specialty Start Date End Date Charissa Cobb MD [address] [facility] [place] [address] PCP - General Family Practice 06/19/13 documented as of this encounter
[2024-10-13 20:49] VITALS: BP 122/76; PULSE 62; RESP 18; TEMP 35.9; O2SAT 95; BMI 25.7
--- NOTE | 2024-10-13 21:01 | ED.GENADULT ---
HPI - General Adult General Chief complaint: Syncope/Fainted Stated complaint: Fainted, Pacemaker installed 09/23/24 Time Seen by Provider: 10/13/24 20:54 History of Present Illness HPI narrative: Pt reports around 194 he finished dinner , stood up and had a syncopal episode. Pt states he had some wine. states he was down for about 10 minutes. Pt was diaphoretic following episode but had no further symptoms. Pt had pacemaker placed on October 27. 79-year-old man presenting to the emergency department following apparent syncopal event. Had been enjoying a meal with his family with multiple pours of proseco and got up from the table was feeling lightheaded managed to set himself down and slid down in the corner of a room. Did not hit his head. Eyes are open but was not responsive for some minutes. No shaking was described. Not feeling short of breath nor chest pain. Feeling well at this time. Understandably alarming given recent pacemaker defibrillator installed on 09/26 per his report. Had actually had a pacemaker installed earlier in the month and while biking apparently passed out with a run of V-tach. Went back and then and had this pacer defibrillator installed. Sounds to have been tolerating it well prior to this. No fever noted. Related Data Home Medications ?Medication ?Instructions ?Recorded ?Confirmed aspirin PO DAILY 10/13/24 atorvastatin 40 mg tablet 40 mg PO QPM 10/13/24 10/13/24 metoprolol succinate 25 mg 25 mg PO DAILY 10/13/24 10/13/24 tablet,extended release 24 hr sotalol 80 mg tablet 80 mg PO BID 10/13/24 10/13/24 Allergies Allergy/AdvReac Type Severity Reaction Status Date / Time bee venom protein (honey bee) Allergy Severe Anaphylaxis Verified 10/13/24 21:00 Review of Systems Status of ROS: Reports: 6 or more systems reviewed and unremarkable except as noted in History and below PFSH PFSH Social History Smoking Status: Never smoker How often do you have a drink containing alcohol: 2-3 times a week AUDIT-C Alcohol total score: 3 Non-prescribed substance use: denies use Exam Narrative: Exam Narrative: Very pleasant. NAD. Lately hard of hearing with hearing aids in place. Tall. Lungs are clear. Heart in regular but slower rate. No murmur identified. Examination the chest does show a well-healing surgical incision at the left upper chest with palpable hardware. Moving all extremities without difficulty. Well-perfused. No peripheral edema. Abdomen is soft nontender. Head is atraumatic. Const: Vital Signs, click to edit/add: Vital Signs - 24 hr 10/13/24 20:49 10/13/24 21:38 Temperature 96.7 F L Pulse Rate [Left P ulse Oximeter] 62 Pulse Rate [orthos tatic lying Right Pulse Oximeter] 62 Pulse Rate [orthos tatic sitting Righ t Pulse Oximeter] 67 Pulse Rate [orthos tatic standing Rig ht Pulse Oximeter] 80 Respiratory Rate 18 Blood Pressure [Ri ght Upper Arm] 122/76 Blood Pressure [or thostatic lying Le ft Arm] 111/62 Blood Pressure [or thostatic sitting Left Arm] 103/87 Blood Pressure [or thostatic standing Left Arm] 83/58 L Pulse Oximetry 95 Oxygen Delivery Me thod Room Air Documenting provider has reviewed patient's vital signs: yes Course Vital Signs Vital signs: Initial Vital Signs Temperature 96.7 F L 10/13/24 20:49 Temperature Source Temporal Artery Scan 10/13/24 20:49 Pulse Rate 62 10/13/24 20:49 Respiratory Rate 18 10/13/24 20:49 Blood Pressure 122/76 10/13/24 20:49 Blood Pressure Mean 91 10/13/24 20:49 Blood Pressure Position Supine 10/13/24 20:49 Pulse Oximetry 95 10/13/24 20:49 Oxygen Delivery Method Room Air 10/13/24 20:49 Vital Signs Temperature 96.7 F L 10/13/24 20:49 Pulse Rate 62 10/13/24 20:49 Respiratory Rate 18 10/13/24 20:49 Blood Pressure 122/76 10/13/24 20:49 Pulse Oximetry 95 10/13/24 20:49 Oxygen Delivery Method Room Air 10/13/24 20:49 Temperature 96.7 F L 10/13/24 20:49 Pulse Rate 66 10/13/24 22:16 Respiratory Rate 16 10/13/24 22:16 Blood Pressure 114/91 H 10/13/24 22:16 Pulse Oximetry 98 10/13/24 22:16 Oxygen Delivery Method Room Air 10/13/24 20:49 Medical Decision Making MDM Narrative Medical decision making narrative: I am not convinced that his device actually defibrillated. Initial EKG independently reviewed by me shows rate of 60 to looks to be with pacer spikes as anticipated. Will be monitored here on director service and check orthostatics. Will try to contact pipe organ installer to query pacemaker/defibrillator. Check labs for any indication at this may have actually fired. Otherwise sounds like some combination of vasovagal and alcohol-related orthostatic event. We do orthostatics there definitely positive though he reports no symptoms. Does take a beta-paras metoprolol. Given a L normal saline. Continuing to monitor. Orthostatics are positive but he reports being symptom free. Beta-paras might be possibly contributing to these findings. Labs are reassuring. Negative troponin. Alcohol level is 0.02. During time here in the emergency department did attempt to Claude pacer. Eventually he was able to transmit from his phone his recent monitoring. Did hear back from technologist that there was brief atrial tachycardia at 1 point in the last 15 days but not more specific than that. With this and reassuring labs I think less likely that there was any discharge. He and his family have been anxious to leave the emergency department. Repeat orthostatics were declined. See patient discharge plan for further discussion Focus on hydration maybe with more water and a little less proseco :) Initial pacer query is reported to be reassuring other than a lower rate which might need to be adjusted Take care in transitions Certainly return for repeat event and follow-up on Tuesday as scheduled. Your labs are reassuring here tonight and and with an alcohol level of 0.02 Lab Data Lab results reviewed: Yes I reviewed the patient's lab results Labs: Lab Results 10/13/24 Range/Units 21:30 WBC 4.95 (4.50-11.00) K/uL RBC 4.10 L (4.30-5.90) m/uL Hgb 13.0 L (13.5-17.5) gm/dL Hct 38.1 (37.0-53.0) % MCV 93 (80-100) fL MCH 32 (26-34) pg MCHC 34 (32-36) gm/dL RDW Coeff of Cynthia 12.3 (11.5-15.5) % Plt Count 181 (140-440) K/uL Neut % (Auto) 66.5 (42.0-72.0) % Lymph % (Auto) 17.4 L (20-44) % Norton % (Auto) 12.5 H (0.0-11.0) % Eos % (Auto) 3.0 (0.0-7.0) % Baso % (Auto) 0.4 (0.0-3.0) % Neut # (Auto) 3.29 (1.7-7.0) K/uL Lymph # (Auto) 0.90 (0.90-2.90) K/uL Norton # (Auto) 0.60 (0.00-0.90) K/UL Eos # (Auto) 0.15 (0.00-0.50) K/uL Baso # (Auto) 0.02 (0.00-0.30) K/uL Abs Immat Gran (auto) 0.01 (0.00-0.30) K/uL Imm/Tot Granulo (auto) 0.2 % Sodium 138 (135-149) mmol/L Potassium 4.1 (3.6-5.1) mmol/L Chloride 103 (96-114) mmol/L Carbon Dioxide 24 (20-32) mmol/L Anion Gap 11 (7-15) mEq/L BUN 26 (7-30) mg/dL Creatinine 1.0 (0.5-1.5) mg/dL Estimated Creat Clear 67.36 Estimated GFR 76 ml/min Glucose 98 (60-115) mg/dL Calcium 9.4 (8.4-10.6) mg/dL Troponin I < 0.01 (0.01-0.04) ng/mL Ethyl Alcohol 0.02 (0.01-0.03) % POC Troponin I 0.00 L (0.01-0.04) ng/ml Discharge Plan Discharge Clinical Impression: Vasovagal syncope Patient Disposition: Home w/ Parent or Adult Condition: Stable Additional Instructions: Focus on hydration maybe with more water and a little less proseco :) Initial pacer query is reported to be reassuring other than a lower rate which might need to be adjusted Take care in transitions Certainly return for repeat event and follow-up on Tuesday as scheduled. Your labs are reassuring here tonight and and with an alcohol level of 0.02 FOLLOW UP WITH DEVICE CLINIC Prescriptions: No Action aspirin [Adult Low Dose Aspirin] PO DAILY atorvastatin 40 mg tablet 40 mg PO QPM sotalol 80 mg tablet 80 mg PO BID metoprolol succinate 25 mg tablet extended release 24 hr 25 mg PO DAILY Follow Up/Referrals: Provider,Not a Local [Primary Care Provider, Family Practice] Stand Alone Forms: Recommind Info Instructions
[2024-10-13 21:15] VITALS: BP 111/62; PULSE 65; RESP 26; O2SAT 95
[2024-10-13 21:16] VITALS: BP 103/87; PULSE 73; RESP 22; O2SAT 92
[2024-10-13 21:18] VITALS: BP 83/58; PULSE 67; RESP 21; O2SAT 95
[2024-10-13 21:38] VITALS: BP 103/87; BP 111/62; BP 83/58; PULSE 62; PULSE 67; PULSE 80
[2024-10-13 21:38] LABS: Basophils Absolute Auto 0.02 K/uL (0.00-0.30); Basophils Percent Auto 0.4 % (0.0-3.0); Eosinophils Absolute Auto 0.15 K/uL (0.00-0.50); Hematocrit 38.1 % (37.0-53.0); Immature Granulocytes Abs Auto 0.01 K/uL (0.00-0.30); Immature Granulocytes Pct Auto 0.2 %; Lymphocytes Percent Auto 17.4 % (20-44); Mean Corpuscular HGB Conc 34 gm/dL (32-36); Mean Corpuscular Hemoglobin 32 pg (26-34); Mean Corpuscular Volume 93 fL (80-100); Monocytes Percent Auto 12.5 % (0.0-11.0); Neutrophils Absolute Auto 3.29 K/uL (1.7-7.0); Neutrophils Percent Auto 66.5 % (42.0-72.0); Platelet Count* 181 K/uL (140-440); RDW Coefficient of Variation % 12.3 % (11.5-15.5); White Blood Count* 4.95 K/uL (4.50-11.00)
[2024-10-13 21:44] LABS: Slide Review Reflex No
[2024-10-13 21:54] LABS: Chloride* 103 mmol/L (96-114); Potassium* 4.1 mmol/L (3.6-5.1); Sodium* 138 mmol/L (135-149)
[2024-10-13 21:57] LABS: Anion Gap 11 mEq/L (7-15); Blood Urea Nitrogen* 26 mg/dL (7-30); Calcium* 9.4 mg/dL (8.4-10.6); Carbon Dioxide* 24 mmol/L (20-32); Est. Creatinine Clearance* 67.36; Estimated Glomerular Filt Rate 76 ml/min; Glucose* 98 mg/dL (60-115)
[2024-10-13 21:58] LABS: Ethanol* 0.02 % (0.01-0.03)
--- OUTSIDE RECORDS SUMMARY | 2024-10-13 22:00 | XMS_ITS ---
Author Organization [facility] Address [address] [place] [address] Care Team Providers Care Laborer Syrup Machine Name Role Phone Charissa Cobb MD Primary Care Provider [phone] Transitional Care Management Status:Enrolled (Active) Start date:09/27/2024 Enrollment date:09/28/2024 Enrollment reason:Discharged from internal hospital Current support & services provided:Moderate Complexity Transitional Care Management Case Team Name Relationship Phone Salena Agustin RN Board Hammer Operator(Responsible Staff) [phone] Continued Care and Services Coordination
--- OUTSIDE RECORDS SUMMARY | 2024-10-13 22:00 | XMS_ITS | Encounter Summary ---
[facility] Address [address], [place] [address] Care Team Providers Care Scrap Metal Burner Name Role Phone Charissa Cobb MD Primary Care Provider Encounter Details Date Type Department Care Team (Latest Contact Info) Description 09/27/2017 Correspondence None No Primary/Referring, Phy VACCINE PAW Social History Tobacco Use Types Packs/Day Years Used Date Smoking Tobacco: Never Smokeless Tobacco: Never Alcohol Use Standard Drinks/Week Comments Yes 7 (1 standard drink = 0.6 oz pur e alcohol) wine with dinner Sex and Gender Information Value Date Recorded [...] [facility]ointment [facility] [address] [place], [place] [address] [phone] 10/16/2024 11:40 AM CDT Appointment [facility] [address] [facility] [place] [address] Shahida Parnell, TRAIN MASTER, CLINICAL DOCUMENTATION DEVELOPER [address] [place] [address] 10/23/2024 7:45 AM CDT Appointment [facility] [address] [place] [address] 11/28/2024 10:30 AM CDT [facility]ment [facility] [address] [place] [address]. [place] [address] Zahida Calloway MD [address] [place] [address] 02/12/2025 8:45 AM CDT Appointment [facility] [address] [place] [address] Palma Villegas MD [address] [place] [address] [place] [address] 04/10/2025 2:20 PM PAN SHOVER [facility]ment [facility] [address] [address] Cheryl De Leon, [address] [place] [address] documented as of this encounter Visit Diagnoses Not on filedocumented in this encounter Care Teams Scrap Metal Burner Relationship Specialty Start Date End Date Charissa Cobb MD [address] [place] [address] [place] [address] PCP - General Family Practice 06/19/13 documented as of this encounter
--- OUTSIDE RECORDS SUMMARY | 2024-10-13 22:00 | XMS_ITS | Encounter Summary ---
Author Organization [facility] Address [address], [place] [address] Care Team Providers Care Fibrous Plasterer Name Role Phone Charissa Cobb MD Primary Care Provider [phone] Encounter Details Date Type Department Care Team (Latest Contact Info) Description 01/01/1997 Orders Only Tono Last MD [address] [place] [address] Social History Tobacco Use Types Packs/Day Years Used Date Smoking Tobacco: Never Assessed Sex and Gender Information Value Date Recorded Sex Assigned at Not on file Legal Sex Male 3:34 AM CDT Gender Identity Not on file Sexual Orientation Not on file documented as of this encounter Plan of Treatment Upcoming Encounters Date Type Department Care Team (Late st Contact Info) Description 10/16/2024 10:15 AM CDT Appointment [facility] [address] [place] [address] 10/16/2024 11:40 AM CDT Appointment [facility] [address] [place] [address] Shahida Parnell, CORRECTIVE THERAPY AIDE, RADIOPHONE OPERATOR [address] [place] [phone] 10/23/2024 7:45 AM CDT Appointment [facility] [address] [place] [address] 11/28/2024 10:30 AM CDT [facility]ment [facility] [address] [place] [address]. [place] [address] Zahida Calloway MD [address] [place] [address] 02/12/2025 8:45 AM CDT Appointment [facility] [address] [place] [address] Palma Villegas MD [address] [place] [address] [place] [address] 04/10/2025 2:20 PM UNDERWRITING INTERN [facility] [address] [address] Cheryl De Leon, [address] [address] documented as of this encounter Visit Diagnoses Not on filedocumented in this encounter Care Teams Fibrous Plasterer Relationship Specialty Start Date End Date Charissa Cobb MD [address] [place] [address] [place] [address] PCP - General Family Practice 06/19/13 documented as of this encounter
--- OUTSIDE RECORDS SUMMARY | 2024-10-13 22:00 | XMS_ITS | Encounter Summary ---
Author Organization [facility] Address [address] [place] [address] Care Team Providers Care Operator Weapon Locating Radar Name Role Phone Charissa Cobb MD Primary Care Provider [phone] Encounter Details Date Type Department Care Team (Late st Contact Info) Description 12/10/2014 Flowsheet None No Primary/Referring, Phy ALLERGY INJECTION RECORD Social History Tobacco Use Types Packs/Day Years Used Date Smoking Tobacco: Never Smokeless Tobacco: Never Alcohol Use Standard Drinks/Week Comments Yes 11.7 (1 standard drink = 0.6 oz pure alcohol) Sex and Gender Information Value Date Recorded [...] Encounters Date Type Department Care Team (Late Contact Info) Description 10/16/2024 10:15 AM CDT Appointment [facility] [address] [place], [place] [address] [phone] 10/16/2024 11:40 AM CDT Appointment [facility] [address] [facility] [place] [address] Shahida Parnell, WAGE ANALYST, LAB REP [address] [place] [address] 10/23/2024 7:45 AM CDT Appointment [facility] [address] [place] [address] 11/28/2024 10:30 AM CDT [facility]ment [facility] [address] [place] [address]. [place] [address] Zahida Calloway MD [address] [place] [address] 02/12/2025 8:45 AM CDT Appointment [facility] [address] [place] [address] Palma Villegas MD [address] [place] [address] [place] [address] 04/10/2025 2:20 PM GRAB JACK WORKER [facility] [address] [address] Cheryl De Leon, RD[address] [place] [address] documented as of this encounter Visit Diagnoses Not on filedocumented in this encounter Care Teams Operator Weapon Locating Radar Relationship Specialty Start Date End Date Charissa Cobb MD [address] [place] [address] [place] [address] PCP - General Family Practice 06/19/13 documented as of this encounter
--- OUTSIDE RECORDS SUMMARY | 2024-10-13 22:00 | XMS_ITS | Clinical Summary ---
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 35 tablet 11/19/2016 10:32 AM CDT 7 Active trimethoprim-s ulfamethoxazol e, 160-800 mg, (BACTRIM DS, SEPTRA DS) tabletIndicati ons:Prostate cancer (HC) Take 1 tablet by mouth 2 times daily. 10 tablet 11/19/2016 10:32 AM CDT 7 Active docusate (COLACE) 100 mg capsuleIndicat ions:Prostate cancer (HC) Take 1 capsule by mouth 2 times daily. 20 capsule 7 Active Active Problems Problem Noted Date Diagnosed Date Prostate cancer 11/18/2016 Social History Tobacco Use Types Packs/Day Years Used Date Smoking Tobacco: Never Smokeless Tobacco: Never Alcohol Use Standard Drinks/Week Comments Yes 0 (1 standard drink = 0.6 oz pure alcohol) 7 drinks /week , wine with dinner Sex and Gender Information Value Date Recorded Sex Assigned at Not on file Legal Sex Male 3:30 PM CDT Gender Identity Not on file Sexual Orientation Not on file Obstetrics History Last Filed Vital Signs Vital Sign Reading Time Taken Comments Blood Pressure 92/62 11/19/2016 7:26 AM CDT Pulse 54 11/19/2016 7:26 AM CDT Temperature 36.4 C (97.5 F) 11/19/2016 7:26 AM CDT Respiratory Rate 16 11/19/2016 7:26 AM CDT Oxygen Saturation 93% 11/19/2016 7:26 AM CDT Inhaled Oxygen Concentration - - Weight 85.9 kg (189 lb 6 oz) 11/18/2016 8:11 AM CDT Height 188 cm (6' 2) 11/18/2016 8:11 AM CDT Body Mass Index 24.31 11/18/2016 8:11 AM CDT Plan of Treatment Health Maintenance Due Date Last Done Comments Tdap 08[birth year]01/1956 Depression screening for age 12+ 1955 Tetanus booster 1963 Pneumococcal series for age 50+ (1 of 1 - PCV) 08/01/1993 Zoster (shingles) series for age 50+ (1 of 2) 08/01/1993 BMI (ht and wt on same day) for age 18+ 10/05/2017 10/05/2016 RSV vaccine for adults or (1 - 1-dose 75+ series) 08/01/2018 COVID-19 vaccine series ( season) 2024 01/23/2024, 01/20/2023, 02/24/2022, Additional history exists Influenza Vaccine (Season Ended) 2024 Hepatitis B series for 19+ Aged Out N o longer eligible based on patient's age to complete this topic Insurance [employer] HB ONLY [place] [id number] MEDICARE PART B HB ONLY MEDICARE PART A HB ONLY Advance Directives Documents on File Type Date Recorded 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
--- OUTSIDE RECORDS SUMMARY | 2024-10-13 22:00 | XMS_ITS | Encounter Summary ---
Author Organization [facility] Address [address] [place] [address] Care Team Providers Care Booking Agent Name Role Phone Charissa Cobb MD Primary Care Provider [phone] Encounter Details Date Type Department Care Team (Late st Contact Info) Description 06/11/2016 Refill Order [address] [address] Charissa Cobb MD [address] [place] [address] Social History Tobacco Use Types Packs/Day Years [...] on file documented as of this encounter Nursing Notes * Roxie Dodson CMA - 06/11/2016 1:27 PM CST Letter sent to pt. Roxie Dodson CMA 06/11/2016, 1:27 PM DE FROID documented in this encounter Plan of Treatment Upcoming Encounters Date Type Department Care Team (Late st Contact Info) Description 10/16/2024 10:15 AM CDT Appointment [facility] [address] [place] [address] 10/16/2024 11:40 AM CDT Appointment [facility] [address] [place] [address] Shahida Parnell APRN, MEDICAL RECORD SPECIALIST [address] [place] [address] 10/23/2024 7:45 AM CDT Appointment [facility] [address] [place] [address] 11/28/2024 10:30 AM CDT [facility] [address] [place] [address]. [place] [address] Zahida Calloway MD [address] [place] [address] 02/12/2025 8:45 AM CDT Appointment [facility] [address] [place] [address] Palma Villegas MD [address] [place] [address] [place] [address] 04/10/2025 2:20 PM CHEF DE FROID [facility] [address] [address] Cheryl De Leon, [address] [place] [address] documented as of this encounter Visit Diagnoses Diagnosis Encounter for long-term (current) use of medications- Primary Encounter for long-term (current) use of other medications documented in this encounter Care Teams Booking Agent Relationship Specialty Start Date End Date Charissa Cobb MD [address] [facility] [place] [address] PCP - General Family Practice 06/19/13 documented as of this encounter
--- OUTSIDE RECORDS SUMMARY | 2024-10-13 22:00 | XMS_ITS | Encounter Summary ---
Author Organization [facility] Address [address], [place] [address] Care Team Providers Care Deckhand Sponge Boat Name Role Phone Charissa Cobb MD Primary Care Provider [phone] Encounter Details Date Type Department Care Team (Latest Contact Info) Description 01/17/1995 Orders Only Tono Last MD [address] [place] [address] Social History Tobacco Use Types Packs/Day Years [...] Appointment [facility] [address] [place] [address] 10/16/2024 11:40 AM CDT Appointment [facility] [address] [place] [address] Shahida Parnell, PROGRAM DEVELOPMENT MANAGER, HR REPRESENTATIVE [address] [place] [phone] 10/23/2024 7:45 AM CDT Appointment [facility] [address] [place] [address] 11/28/2024 10:30 AM CDT [facility]ment [facility] [address] [place] [address]. [place] [address] Zahida Calloway MD [address] [place] [address] 02/12/2025 8:45 AM CDT Appointment [facility] [address] [place] [address] Palma Villegas MD [address] [place] [address] [place] [address] 04/10/2025 2:20 PM SPLICING TECHNICIAN [facility] [address] [address] Cheryl De Leon, [address] [address] documented as of this encounter Visit Diagnoses Not on filedocumented in this encounter Care Teams Deckhand Sponge Boat Relationship Specialty Start Date End Date Charissa Cobb MD [address] [place] [address] [place] [address] PCP - General Family Practice 06/19/13 documented as of this encounter
--- OUTSIDE RECORDS SUMMARY | 2024-10-13 22:00 | XMS_ITS | CCD ---
Author Name Interface, [id number] lity Address [address] [facility] [address] [address] [facility] Address [facility] [address] [address] Care Team Providers Care Car Servicer Name Role Phone Fabricio Massey Unavailable Unavailable Care Plan Reason for Visit Encounters Functional Status Diagnostic Results Medications Problems Procedures Social History
--- OUTSIDE RECORDS SUMMARY | 2024-10-13 22:00 | XMS_ITS | Encounter Summary ---
Author Organization [facility] Address [address] [place] [address] Care Team Providers Care Hairspring Ii Inspector Name Role Phone Charissa Cobb MD Primary Care Provider [phone] Encounter Details Date Type Department Care Team (Latest Contact Info) Description 07/29/1998 Orders Only Edilson Burns MD [address] [place], [place] [id number] Social History Tobacco Use Types Packs/Day Years [...] Appointment [facility] [address] [place] [address] 10/16/2024 11:40 AM CDT Appointment [facility] [address] [place] [address] Shahida Parnell, STRAW HAT BRIM RAISER OPERATOR, SENIOR SOURCING MANAGER [address] [place] [phone] 10/23/2024 7:45 AM CDT Appointment [facility] [address] [place] [address] 11/28/2024 10:30 AM CDT Appointment [facility] [address] [address] [place] [address]. [place] [address] Zahida Calloway MD [address] [place] [address] 02/12/2025 8:45 AM CDT Appointment [facility] [address] [place] [address] Palma Villegas MD [address] [place] [address] [place] [address] 04/10/2025 2:20 PM UPHOLSTERY DEPARTMENT SUPERVISOR [facility]ment [facility] [address] [address] Cheryl De Leon, [address] [address] documented as of this encounter Visit Diagnoses Not on filedocumented in this encounter Care Teams Hairspring Ii Inspector Relationship Specialty Start Date End Date Charisas Cobb MD [address] [place] [address] [place] [address] PCP - General Family Practice 06/19/13 documented as of this encounter
--- OUTSIDE RECORDS SUMMARY | 2024-10-13 22:00 | XMS_ITS | Encounter Summary ---
Author Organization [facility] Address [address] [place] [address] Care Team Providers Care Wire Setter Name Role Phone Charissa Cobb MD Primary Care Provider [phone] Encounter Details Date Type Department Care Team (Latest Contact Info) Description 09/28/1994 Orders Only Tono Last MD [address] [place] [address] Social History Tobacco Use Types Packs/Day Years [...] Appointment [facility] [address] [place] [address] 10/16/2024 11:40 AM CDT Appointment [facility] [address] [place] [address] Shahida Parnell, PROFESSOR OF ENGLISH, TUFT MACHINE OPERATOR [address] [place] [phone] 10/23/2024 7:45 AM CDT Appointment [facility] [address] [place] [address] 11/28/2024 10:30 AM CDT [facility]ment [facility] [address] [place] [address]. [place] [address] Zahida Calloway MD [address] [place] [address] 02/12/2025 8:45 AM CDT Appointment [facility] [address] [place] [address] Palma Villegas MD [address] [place] [address] [place] [address] 04/10/2025 2:20 PM VEHICLE MONITOR TECHNICIAN [facility] [address] [address] Cheryl De Leon, [address] [address] documented as of this encounter Visit Diagnoses Not on filedocumented in this encounter Care Teams Wire Setter Relationship Specialty Start Date End Date Charissa Cobb MD [address] [place] [address] [place] [address] PCP - General Family Practice 06/19/13 documented as of this encounter
--- OUTSIDE RECORDS SUMMARY | 2024-10-13 22:00 | XMS_ITS | Encounter Summary ---
Author Organization [facility] Address [address], [place] [address] Care Team Providers Care Freight Delivery Driver Name Role Phone Charissa Cobb MD Primary Care Provider [phone] Encounter Details Date Type Department Care Team [...] Appointment [facility] [address] [place], [place] [phone] 10/16/2024 11:40 AM CDT Appointment [facility] [address] [facility] [place] [address] Shahida Parnell, PROOF MACHINE OPERATOR, LABELING MACHINE OPERATOR [address] [place] [address] 10/23/2024 7:45 AM CDT Appointment [facility] [address] [place] [address] 11/28/2024 10:30 AM CDT [facility]ment [facility] [address] [place] [address]. [place] [address] Zahida Calloway MD [address] [place] [address] 02/12/2025 8:45 AM CDT Appointment [facility] [address] [place] [address] Palma Villegas MD [address] [place] [address] [place] [address] 04/10/2025 2:20 PM ABORIGINAL EDUCATION WORKER COORDINATOR Appointment [facility] [address] [address] Cheryl De Leon, RD[address] [place] [address] documented as of this encounter Visit Diagnoses Not on filedocumented in this encounter Care Teams Freight Delivery Driver Relationship Specialty Start Date End Date Charissa Cobb MD [address] [place] [address] [place] [address] PCP - General Family Practice 06/19/13 documented as of this encounter
--- OUTSIDE RECORDS SUMMARY | 2024-10-13 22:00 | XMS_ITS | Encounter Summary ---
Author Organization [facility] Address [address] [place] [address] Care Team Providers Care Dye House Helper Name Role Phone Charissa Cobb MD Primary Care Provider [phone] Encounter Details Date Type Department Care Team (Late Contact Info) Description 10/15/2014 Correspondence [facility] [address] [place] [phone] Radiology, Provider MRI SAFETY SHEET AND COMPATIBILITY FORM Social History Tobacco Use Types Packs/Day Years [...] Appointment [facility] [address] [place] [address] 10/16/2024 11:40 AM CDT Appointment [facility] [address] [place] [address] Shahida Parnell, MATTRESS SPECIALIST, CREDIT RISK ASSOCIATE [address] [place] [address] 10/23/2024 7:45 AM CDT Appointment [facility] [address] [place] [address] 11/28/2024 10:30 AM CDT [facility]ment [facility] 401 [facility] [address] Zahida Calloway MD [address] [place] [address] 02/12/2025 8:45 AM CDT Appointment [facility] [address] [place] [address] Palma Villegas MD [address] [place] [address] [place] [address] 04/10/2025 2:20 PM CIVIL PREPAREDNESS COORDINATOR [facility]ment [facility] [address] [address] Cheryl De Leno, RD[address] [place] [address] documented as of this encounter Visit Diagnoses Not on filedocumented in this encounter Care Teams Dye House Helper Relationship Specialty Start Date End Date Charissa Cobb MD [address] [place] [address] [place] [address] PCP - General Family Practice 06/19/13 documented as of this encounter
--- OUTSIDE RECORDS SUMMARY | 2024-10-13 22:01 | XMS_ITS | Encounter Summary ---
Author Organization [facility] Address [address] [place] [address] Care Team Providers Care Wick Tender Name Role Phone Charissa Cobb MD Primary Care Provider [phone] Encounter Details Date Type Department Care Team (Late st Contact Info) Description 10/09/2024 Patient Outreach [facility] [address] [place], [place] [address] Salena Agustin RN [address] [place] [address] Social History Tobacco Use Types Packs/Day Years Used Date Smoking Tobacco: Former Cigarettes 1 8 0 08/01/1961 - 08/01/1969 Smokeless Tobacco: Never Alcohol Use Standard Drinks/Week Comments Yes 12 (1 standard drink = 0.6 oz pu re alcohol) wine with dinner [facility] Utilities Answer Date Recorded In the past 12 months has [employer], gas, oil, or water company threatened to [...] time in the past 12 m [facility], were you homeless or living in a snf (including now)? No 09/23/2024 Sex and Gender [...] as of this encounter Progress Notes * Salena Agustin, RN - 10/09/2024 9:58 AM CDT Chart reviewed for TCM. Pt declined follow up calls. Pt has not been readmitted. Pt declined scheduling visit with PCP for hospital discharge follow up. Will review chart next week. Salena Agustin RN 10/09/2024, 10:20 AM documented in this encounter Plan of Treatment Upcoming Encounters Date Type Department Care Team (Late st Contact Info) Description 10/16/2024 10:15 AM CDT Appointment [facility] [address] [facility] [place] [address] 10/16/2024 11:40 AM CDT Appointment [facility] [address] [facility] [place] [address] Shahida Parnell APRN, TRAINING DEVELOPER [address] [place] [address] 10/23/2024 7:45 AM CDT Appointment [facility] [address] [place] [address] 11/28/2024 10:30 AM CDT Appointment [facility] [address] [place] [address]. [place] [address] Zahida Calloway MD [address] [place] [address] 02/12/2025 8:45 AM CDT Appointment [facility] [address] [place] [address] Palma Villegas MD [address] [place] [address] [place] [id number] 04/10/2025 2:20 PM LINING FELLER BLINDSTITCH Appointment [facility] [address] [place] [address] Cheryl De Leon, [facility] [address] [facility] [place] [address] documented as of this encounter Visit Diagnoses Not on filedocumented in this encounter Care Teams Wick Tender Relationship Specialty Start Date End Date Charissa Cobb MD [address] [place] [address] [place] [address] PCP - General Family Practice 06/19/13 documented as of this encounter
--- OUTSIDE RECORDS SUMMARY | 2024-10-13 22:01 | XMS_ITS | Encounter Summary ---
Author Organization [facility] Address [address] [place] [address] Care Team Providers Care Database Technician Name Role Phone Charissa Cobb MD Primary Care Provider [phone] Encounter Details Date Type Department Care Team (Late st Contact Info) Description 05/10/2018 Correspondence External to RX ORDER Social History Tobacco Use Types Packs/Day Years [...] Appointment [facility] [address] [place], [place] [address] 10/16/2024 11:40 AM CDT Appointment [facility] [address] [facility] [place] [address] Shahida Parnell APRN, GASTROENTEROLOGY TEACHER [address] [place] [address] 10/23/2024 7:45 AM CDT Appointment [facility] [address] [place] [address] 11/28/2024 10:30 AM CDT [facility]ment [facility] [address] [address] [place] [address]. [place] [address] Zahida Calloway MD [address] [place] [address] 02/12/2025 8:45 AM CDT Appointment [facility] [address] [place] [address] Palma Villegas MD [address] [place] [address] [place] [address] 04/10/2025 2:20 PM JOB HONER [facility]ment [facility] [address] [address] Cheryl De Leon, RD[address] [place] [address] documented as of this encounter Visit Diagnoses Not on filedocumented in this encounter Care Teams Database Technician Relationship Specialty Start Date End Date Charissa Cobb MD [address] [place] [address] [place] [address] PCP - General Family Practice 06/19/13 documented as of this encounter
--- OUTSIDE RECORDS SUMMARY | 2024-10-13 22:01 | XMS_ITS | Encounter Summary ---
Author Organization [facility] Address [address] [place] [address] Care Team Providers Care Transfer Table Operator Name Role Phone Charissa Cobb MD Primary Care Provider [phone] Encounter Details Date Type Department Care Team (Late st Contact Info) Description 01/26/2018 Consent for Procedure/Treatme nt [facility] Department INFORMED CONSENT RECORD Social History Tobacco Use Types Packs/Day [...] Appointment [facility] [address] [place] [address] 10/16/2024 11:40 AM CDT Appointment [facility] [address] [facility] [place] [address] Shahida Parnell, PALS SPECIALIST, PUBLIC RELATIONS WRITER [address] [place] [address] 10/23/2024 7:45 AM CDT Appointment [facility] [address] [place] [address] 11/28/2024 10:30 AM CDT Appointment [facility] [address] [place] [address]. [place] [address] Zahida Calloway MD [address] [place] [address] 02/12/2025 8:45 AM CDT Appointment [facility] [address] [place] [address] Palma Villegas MD [address] [place] [address] [place] [address] 04/10/2025 2:20 PM CALL CENTER COORDINATOR Appointment [facility] [address] [address] Cheryl De Leon, RD[address] [place] [address] documented as of this encounter Visit Diagnoses Not on filedocumented in this encounter Care Teams Transfer Table Operator Relationship Specialty Start Date End Date Charissa Cobb MD [address] [place] [address] [place] [address] PCP - General Family Practice 06/19/13 documented as of this encounter
--- OUTSIDE RECORDS SUMMARY | 2024-10-13 22:01 | XMS_ITS ---
Author Name Interface, [id number] lity Address [address] [facility] [address] [address] Organization [facility] Address [address] [facility] [address] [place] [address] Care Team Providers Care Tattoo Identifier Name Role Phone Fabricio Massey Unavailable Unavailable Allergies and Adverse Reactions Medication/Group Name Reaction Severity Date Bee sting Anaphylaxis 08/09/2023 Plan Date Type Value 08/08/20[address] [facility] E [facility] PATIENT 30 MIN 08/08/2024 APPOINTMENT OV 30 MIN 08/09/2023 APPOINTMENT OV 30 MIN 08/08/2024 LABORDER PSA diagnostic p yoandy 08/08/2025 LABORDER PSA diagnostic p yoandy Reason for Visit OV 30 MIN Encounters Date Name 08/09/2023 History of prostate cancer 08/09/2023 Personal history of irradiation Immunizations Date Name Route Dose Instructions Refusal Reason Stat us Flu vaccine - Adult Comp leted Diagnostic Results Date Type Test Units Lower Limit Upper Limit Result Flag Comments Status Ordered By Specimen Source Lab Address 07/31 [facility] other lab See d Medications Date Name Route Dose Frequency Instructions Start Date End Date Status Epinephrine IM 1.0 syringe active 023 gabapentin 300 MG Oral Capsule orally 1.0 capsule 3 times per day 023 active 023 gabapentin 300 MG Oral Capsule orally 1.0 capsule 3 times per day 023 active 023 gabapentin 300 MG Oral Capsule orally 1.0 capsule 3 times per day 023 active 023 gabapentin 300 MG Oral Capsule orally 1.0 capsule 3 times per day 023 active 019 Cholecalciferol Oral PO 1.0 TABLET(S) daily 019 active Problems Diagnosis Status Date of Diagnosi s Male hot flash (disorder) Active Primary malignant neoplasm of prostate (disorder ) Active 08/2017 After initial treatment with rising PSA or failure of PSA decline Active History of prostate cancer Active Personal history of irradiation Active Vital Signs Date Type Value 08/09/2023 Body Temperature 97.40 08/09/2023 Heart Beat 64.00 08/09/2023 Respiratory Rate 16.00 08/09/2023 Intravascular Systolic 116 08/09/2023 Intravascular Diastolic 62 08/09/2023 BSA 2.28 08/09/2023 Weight 225.80 08/09/2023 Height 73.75 08/09/2023 BMI 29.19 08/09/2023 Pain Scale 0.00 Notes Section * Rad Onc Follow Up Note RADIATION ONCOLOGY FOLLOW-UP NOTE Patient Name: ROBINSON RUVALCABA Date of : 1945 Date of Service: 08/09/2023 Care Team: Primary Radiation Physician: Fabricio Massey MD Primary Oncology Physician: Fabricio Massey (Radiation Oncology) Referring Physician: FAX Chief Complaint (Radiation): Robinson Ruvalcaba is a 78-year-old gentleman with Stage IIC ([id number]) adenocarcinoma of the prostate, Briseida 4+3 = 7 with tertiary [facility] pattern 5 and preoperative PSA 7.2 (on Avodart). The patient is status post da Melisa prostatectomy and bilateral pelvic lymph node dissection on 11/18/2016 with initial postoperative PSA on 02/23/2017 less than 0.1. However, PSA was 0.1 in May 2017, 0.2in July 2017 and 0.5 on 11/15/2017 (PSA doubling time 2.5 - 3 months). Status post ADT in the formof Lupron. Status post radiation to the pelvic lymph node and prostatic fossa to a dose of 6840 cGyin 38 fractions, completed on 05/10/2018. Assessment & Plan (Radiation): ASSESSMENT:?? It was a pleasure to talk with the patient. Mr. Robinson Ruvalcaba continues to do well status post hormone therapy and radiation for his prostate cancer. His most recent PSA from 07/26/2023 continues to be undetectable, and he has no evidence of recurrent or residual disease. The patient will have afollow-up visit with me or with a nurse practitioner in 12 months with a PSA prior.?? PLAN: 1. Radiation Oncology Follow up: The patient will have a follow-up visit with me or with a nurse practitioner in 12 months with a PSA prior. 2. ADT: The patient is status post hormone therapy with Lupron. No further Lupron is planned.?? 3. Hot flashes: The patient will continue gabapentin as prescribed.?? Advance Care Plan: None?? Pain Care Plan: Pain Scale: 0 Plan: None?? Psycho-social PHQ-9 Follow-up Plan (if applicable): Depression Status Was screened; Outcome positive: No; Screening Date: 08/14/2020; Screening Tool: PRIME NERI-PHQ2; Total depression score: 0 Tobacco Screening & Cessation: Smoking Status: Smoking Tobacco : Former smoker, stopped smokin; Smokeless Tobacco : none found; Vaping : none found Cessation Counseling: None?? Interval History: Mr. Robinson Ruvalcaba presents today for a follow-up approximately 5 years and 3 months status post radiation therapy for his prostate cancer and to review his most recent PSA. Since I last saw the patient, he has not had any significant health changes. The patient denies any significant issues withhis urination or bowel movements since I last met with him including hematuria or hematochezia. He continues to have nocturia and wakes up a couple of times per night to urinate, which is not bothersome for him at this time. The patient completed hormone therapy on 03/22/2018 and has tolerated it well with the anticipated side effects of hot flashes and erectile dysfunction. He states that he cont inues to have hot flashes and has been taking gabapentin as suggested. His hot flashes improved since starting gabapentin and is manageable at this time. He has been having 1-2 episodes of hot flashes during the day and 1 episode of hot flashes at night. He is not able to have any erections at thistime. The patient denies any distress or depression. No significant issues otherwise.?? AUA symptom index score: 11 MIGUELITO score: 1 History of Present Illness (Radiation): 12/11/1999: PSA 0.7?? 01/26/2002: PSA 1.06 06/26/2015: PSA 4.22 07/16/2015: PSA 3.72 07/19/2016: PSA 6.2 08/27/2016: The patient had an elevated PSA of 7.2 Examination revealed focal induration of the apex bilaterally. 09/07/2016: Transrectal ultrasound and biopsy of the prostate gland revealed the prostate volume was 27 mL. Hypoechoic areas were noted along the right base and bilateral apex. Pathology ([facility] [id number]) revealed prostatic adenocarcinoma Briseida 4+3 = 7 involving the biopsy from the left apex and right base, and [facility] 3+3 = 6 in the biopsy from the right apex, right mid and right base. 09/29/2016: CT of the abdomen and pelvis revealed mild prostatomegaly with no abdominal pelvic adenopathy.?? 10/22/2016: Bone scan revealed degenerative changes without evidence of metastatic disease. CT of the chest on that same date revealed no evidence of metastatic disease. There was a 3.3 x 1.5 cm leftthyroid nodule. 11/18/2016: Dr. Colón and Dr. Foster performed da Melisa prostatectomy and bilateral pelvic lymph node dissection. Pathology revealed prostatic adenocarcinoma [facility] 4+3 = 7 with tertiary Briseida pattern 5. Approximately 30% of the prostatic parenchyma was involved with adenocarcinoma. Maximal tumor dimension was 1.8 cm. There was no extraprostatic extension, seminal vesicle invasion or bladderneck involvement. Margins of excision were involved at the left apex and left posterior margins. Extent of margin positivity was 6 mm linear involvement. Perineural invasion was present but there wasno lymph- vascular invasion identified. 6 pelvic lymph nodes were negative for metastatic disease. 02/23/2017: Postoperatively the patient's first PSA was less than 0.1.?? 05/17/2017: PSA 0.1 08/24/2017: PSA 0.2?? 11/15/2017: PSA 0.5 12/09/2017: MRI ([facility]) revealed prostatectomy without evidence of recurrent or metastatic disease within the pelvis. Bone scan ([facility]) on 12/12/2017 revealed degenerative change in the shoulders, left wrist, knees and mid feet. There was a convex mid thoracic curve to the right. There was no evidence of skeletal metastases and no change compared with 10/22/2016. 12/21/2017: The patient received 22.5 mg of Lupron shot.?? 03/09/2018: PSA was <0.1 and testosterone was 10. 03/22/2018: The patient received his final 22.5 mg of Lupron shot. No further Lupron is planned. 08/14/2018: PSA <0.1 02/08/2019: PSA was <0.1. 2019: PSA <0.1 01/31/2020: PSA <0.1 08/01/2020: PSA <0.1 02/03/2021: PSA <0.1 08/05/2021: PSA <0.1 12/08/2021: PSA 1.42?? 02/03/2022: PSA <0.10 08/03/2022: PSA <0.10 01/24/2023: PSA <0.10 07/26/2023: PSA <0.10 Prior Radiation Summary: 05/10/2018: Status post radiation to the pelvic lymph node and prostatic fossa to a dose of 6840 cGy delivered in 38 treatment fractions over 56 days (4500 cGy in 25 treatment fractions to the pelviclymph node and prostatic fossa, followed by a 1080 cGy boost in 6 fractions to the prostatic fossa,and a second reduced prostatic fossa boost of 1260 cGy in 7 fractions) completed on 05/10/2018. ?? Pacemaker: None Review of Systems (Radiation): As documented in the HPI. Remainder of the complete review of systems is otherwise negative. Past Medical History (Radiation): Prostate cancer, as above?? Mitral valve disorder?? Ostium secundum type atrial septal defect?? Actinic keratosis of left cheek?? Venom-induced anaphylaxis?? Non-recurrent inguinal hernia without obstruction or gangrene?? Past Surgical History: Actinic keratosis removal from the left cheek?? Arthroscopy of joint, right and left knee?? Right inguinal hernia repair in 2010 Vasectomy? Allergies: Bee sting Updated on today's visit and reviewed by me. Current Medications: Documented in the EHR. Updated on today's visit and reviewed by me. Health Maintenance: Screenings: No recorded screenings. Immunizations: Covid-19 vaccine (Pfizer) (08/14/2020), Elsewhere; Flu vaccine - Adult (08/09/2023),Elsewhere; Flu vaccine - Adult (08/06/2022), Elsewhere; Flu vaccine - Adult (08/25/2021), Elsewhere; Pneumococcal vaccine (Unspecified formulation) (2018); Zoster vaccine (2018) Past Surgical History: Actinic keratosis removal from the left cheek?? Arthroscopy of joint, right and left knee?? Right inguinal hernia repair in 2010 Vasectomy?? Social History: Smoking Status Smoking Tobacco : Former smoker, stopped smokin; Smokeless Tobacco : none found; Vaping : none found Marital Status: Employment Status: Retired The patient is a never smoker. he has never used smokeless tobacco. He drinks 7 standard drinks or equivalent per week.?? OBJECTIVE: Physical Examination (Radiation): Vital Signs: Blood pressure: 116/62, Sitting, L arm, Regular, Pulse: 64, Temperature: 97.4 F, Respirations: 16, O2 sat: Not recorded on visit., Pain Scale: 0, Height: 73.75 in, Weight: 225.8 lb, BSA:2.28, BMI: 29.19 kg/m2 ECOG: Not recorded or not applicable. Karnofsky: 100% Normal, no complaints, no evidence of disease. (Date: 04/19/2018) CONSTITUTIONAL: Awake, alert, cooperative, no apparent distress. Labs: CBC LabResults 07/26/2023 01/24/2023 08/03/2022 02/03/2022 2 08/05/2021 CBC Chemistries LabResults 07/26/2023 01/24/2023 08/03/2022 02/03/2022 2 08/05/2021 Chemistries ? Imaging: I have personally reviewed. The patient was given the opportunity to ask questions, which I answered. The patient knows that they can contact us at any time should they have further questions. I explained the multidisciplinary nature of cancer care and the role of the various team members. Total time spent on the day of service is 13 minutes including time spent reviewing records, face to face with the patient, preparing orders, and documentation. Documentation assistance provided by Shekh Emmanuel Aquino, hemaibing for Dr. Fabricio Massey, on 08/09/2023. I appreciate the opportunity to participate in the care of this patient. If I can be of further assistance or you require additional documentation, please do not hesitate to contact our office.?? I have discussed the above stated plan with the patient and they verbalized understanding and agreed with the plan. Thank you for allowing us to participate in this patient's care. Fabricio Massey MD Copy To: FAX (Referring) Charissa Cobb MD Electronically signed by Fabricio Massey MD 08/09/2023 08:41 CDT
--- OUTSIDE RECORDS SUMMARY | 2024-10-13 22:01 | XMS_ITS | Encounter Summary ---
Author Organization [facility] Address [address] [place] [address] Care Team Providers Care Stratigrapher Name Role Phone Charissa Cobb MD Primary Care Provider [phone] Encounter Details Date Type Department Care Team (Late st Contact Info) Description 09/11/2013 [facility] [address] [facility] [address] [place] [address]. [place] [address] Radha Serra MD ALLERGY INJECTION Social History Tobacco Use Types Packs/Day Years [...] Appointment [facility] [address] [place] [address] 10/16/2024 11:40 AM CDT Appointment [facility] [address] [place] [address] Shahida Parnell, ACQUISITION LEAD, ASSISTANT FRONT OFFICE MANAGER [address] [place] [address] 10/23/2024 7:45 AM CDT Appointment [facility] [address] [place] [address] 11/28/2024 10:30 AM CDT Appointment [facility] [address] [facility] [place] [address] Zahida Calloway MD [address] [place] [address] 02/12/2025 8:45 AM CDT Appointment [facility] [address] [place] [address] Palma Villegas MD [address] [place] [address] [place] [address] 04/10/2025 2:20 PM PEER SUPPORT SPECIALIST [facility] [address] [address] Cheryl De Leon, [address] [place] [address] documented as of this encounter Visit Diagnoses Not on filedocumented in this encounter Care Teams Stratigrapher Relationship Specialty Start Date End Date Charissa Cobb MD [address] [place] [address] [place] [address] PCP - General Family Practice 06/19/13 documented as of this encounter
--- OUTSIDE RECORDS SUMMARY | 2024-10-13 22:01 | XMS_ITS | Encounter Summary ---
Author [facility] Address [address] [place] [address] Care Team Providers Care Marine Engineering Consultant Name Role Phone Charissa Cobb MD Primary Care Provider [phone] Encounter Details Date Type Department Care Team (Late Contact Info) Description 05/10/2018 Correspondence External to [facility] ORDERS Social History Tobacco Use Types Packs/Day Years [...] Appointment [facility] [address] [place], [place] [phone] 10/16/2024 11:40 AM CDT Appointment [facility] [address] [place] [address] Shahida Parnell APRN, MUSIC INSTRUCTOR [address] [place] [address] 10/23/2024 7:45 AM CDT Appointment [facility] [address] [place] [address] 11/28/2024 10:30 AM CDT [facility]ointment [facility] [address] [place] [address]. [place] [address] Zahida Calloway MD [address] [place] [address] 02/12/2025 8:45 AM CDT Appointment [facility] [address] [place] [address] Palma Villegas MD [address] [place] [address] [place] [address] 04/10/2025 2:20 PM EARTH BURNER [facility] [address] [address] Cheryl De Leon, [address] [address] documented as of this encounter Visit Diagnoses Not on filedocumented in this encounter Care Teams Marine Engineering Consultant Relationship Specialty Start Date End Date Charissa Cobb MD [address] [place] [address] [place] [address] PCP - General Family Practice 06/19/13 documented as of this encounter
--- OUTSIDE RECORDS SUMMARY | 2024-10-13 22:01 | XMS_ITS | Encounter Summary ---
Author Organization [facility] Address [address] [place] [address] Care Team Providers Care Steel Worker Name Role Phone Charissa Cobb MD Primary Care Provider [phone] Reason for Referral * Procedure/Equipment (Routine) - Incomplete Specialty Diagnoses / Procedures Referred By Olivia t Referred To Contact Diagnoses Ventricular tachycardia, sustained (HRC) Procedures MR Cardiac Morph/Funct W/WO IV Cont Flw/Qnt W Mapping Shahida Parnell APRN, CNP [address] [place] [address] Phone: tel: fax: Referral ID Status Reason Start Date Expiration Date V isits Requested Visits Authorized [id number] Incomplete 11/26/2024 02/25/2026 1 1 Encounter Details Date Type Department Care Team (Late st Contact Info) Description 09/25/2024 Orders Only [facility] [address] [place] [address] Shahida Parnell, DIRECTOR OF CREATIVE SERVICES, SENIOR SCHEDULER [address] [place] [phone] Ventricular tachycardia, sustained (HRC) (Primary Dx) Social History Tobacco Use Types Packs/Day Years Used Date Smoking Tobacco: Former Cigarettes 1 8 0 08/01/1961 - 08/01/1969 Smokeless Tobacco: Never Alcohol Use Standard Drinks/Week Comments Yes 12 (1 standard drink = 0.6 oz pu re alcohol) wine with dinner [facility] Utilities Answer Date Recorded In the past 12 months has e [employer], gas, oil, or water [email or web address] threatened to shut off services in your [...] any time in the past 12 m [facility], were you homeless or living in [...] Appointment [facility] [address] [facility] [place] [address] 10/16/2024 11:40 AM CDT Appointment [facility] [address] [facility] [place] [address] Shahida Parnell, DIRECTOR OF CREATIVE SERVICES, SENIOR SCHEDULER [address] [place] [address] 10/23/2024 7:45 AM CDT [facility] [address] [place] [address] 11/28/2024 10:30 AM CDT Appoint[facility] [address] [facility] [place] [address] Zahida Calloway MD [address] [place] [address] 02/12/2025 8:45 AM CDT Appointment [facility] [address] [place] [address] Palma Villegas MD [address] [place] [address] [place] [address] 04/10/2025 2:20 PM VICE PRESIDENT OF MANUFACTURING Appointment [facility] [address] [address] Cheryl De Leon, [address] [place] [address] Scheduled Orders Name Type Priority Associated Diagnoses Orde r Schedule MR Cardiac Morph/Funct W/WO IV Cont Flw/Qnt W Mapping Imaging New Routine Ventricular tachycardia, sustained (HRC) Expected: 11/26/2024 (Approximate), Expires: 11/26/2025 documented as of this encounter Visit Diagnoses Diagnosis Ventricular tachycardia, sustained (HRC)- Primary Paroxysmal ventricular tachycardia documented in this encounter Care Teams Steel Worker Relationship Specialty Start Date End Date Charissa Cobb MD [address] [place] [address] [place] [address] PCP - General Family Practice 06/19/13 documented as of this encounter
--- OUTSIDE RECORDS SUMMARY | 2024-10-13 22:01 | XMS_ITS | Encounter Summary ---
Author Organization [facility] Address [address] [place] [address] Care Team Providers Care Records Management Assistant Name Role Phone Charissa Cobb MD Primary Care Provider [phone] Encounter Details Date Type Department Care Team (Latest Contact Info) Description 09/23/2024 Orders Only [facility] DEPARTMENT ProviderKetan [place] [address] Social History Tobacco Use Types Packs/Day Years Used Date Smoking Tobacco: Former Cigarettes 1 8 0 08/01/1961 - 08/01/1969 Smokeless Tobacco: Never Alcohol Use Standard Drinks/Week Comments Yes 12 (1 standard drink = 0.6 oz pu re alcohol) wine with dinner [facility] Utilities Answer Date Recorded In the past 12 months has [employer], gas, oil, or water [employer] threatened to shut off services in your [...] any time in the past 12 m [facility], were you homeless or living in a assisted (including now)? No 09/23/2024 Sex and Gender [...] on file documented as of this encounter Functional Status documented as of this encounter Plan of Treatment Upcoming Encounters Date Type Department Care Team (Late st Contact Info) Description 10/16/2024 10:15 AM CDT Appointment [facility] [address] [place] [address] 10/16/2024 11:40 AM CDT Appointment [facility] [address] [place] [address] Shahida Parnell APRN, MANAGER PROGRAMS [address] [place] [address] 10/23/2024 7:45 AM CDT Appointment [facility] [address] [place] [address] 11/28/2024 10:30 AM CDT Appointment [facility] [address] [place] [address]. [place] [address] Zahida Calloway MD [address] [place] [address] 02/12/2025 8:45 AM CDT Appointment [facility] [address] [place] [address] Palma Villegas MD [address] [place] [address] [place] [address] 04/10/2025 2:20 PM HOME HEALTH CLINICAL SUPERVISOR [facility] [address] [address] Cheryl De Leon, [address] [address] documented as of this encounter Procedures Procedure Name Priority Date/Time Associated Diagnosis Comments CARDIAC PROCEDURE--SCAN 09/23/2024 documented in this encounter Results * CARDIAC PROCEDURE--SCAN (09/23/2024) us Interface Provider MD WILBURN/OTHER/AR Final Resu lt documented in this encounter Visit Diagnoses Not on filedocumented in this encounter Care Teams Records Management Assistant Relationship Specialty Start Date End Date Charissa Cobb MD [address] [place] [address] [place] [address] PCP - General Family Practice 06/19/13 documented as of this encounter
--- OUTSIDE RECORDS SUMMARY | 2024-10-13 22:01 | XMS_ITS | Encounter Summary ---
Author Organization [facility] Address [address] [place] [address] Care Team Providers Care Php Software Engineer Name Role Phone Charissa Cobb MD Primary Care Provider [phone] Encounter Details Date Type Department Care Team (Latest Contact Info) Description 09/23/2024 Orders Only HIM DEPARTMENT ProviderKetan [place] [address] Social History Tobacco Use Types Packs/Day Years Used Date Smoking Tobacco: Former Cigarettes 1 8 0 08/01/1961 - 08/01/1969 Smokeless Tobacco: Never Alcohol Use Standard Drinks/Week Comments Yes 12 (1 standard drink = 0.6 oz pu re alcohol) wine with dinner [facility] Utilities Answer Date Recorded In the past 12 months has [facility], gas, oil, or water [facility] threatened to shut off services in your [...] time in the past 12 m [facility], were you homeless or living in a penitentiary (including now)? No 09/23/2024 Sex and Gender [...] Appointment [facility] [address] [facility] [place] [address] 10/16/2024 11:40 AM CDT Appointment [facility] [address] [facility] [place] [address] Shahida Parnell APRN, FITNESS STUDIES TEACHER [address] [place] [address] 10/23/2024 7:45 AM CDT Appointment [facility] [address] [place] [address] 11/28/2024 10:30 AM CDT Appointment [facility] [address] [place] [address]. [place] [address] Zahida Calloway MD [address] [place] [address] 02/12/2025 8:45 AM CDT Appointment [facility] [address] [place] [address] Palma Villegas MD [address] [place] [address] [place] [address] 04/10/2025 2:20 PM VISUAL TRAINING AIDE [facility] [address] [address] Cheryl De Leon, [address] [place] [address] documented as of this encounter Procedures Procedure Name Priority Date/Time Associated Diagnosis Comments PROCEDURE IP 09/23/2024 documented in this encounter Results * PROCEDURE IP (09/23/2024) Anatomical Region Laterality Modality Other us Interface Provider DUMMY/OTHER/AR Final Resu lt documented in this encounter Visit Diagnoses Not on filedocumented in this encounter Care Teams Php Software Engineer Relationship Specialty Start Date End Date Charissa Cobb MD [address] [place] [address] [place] [address] PCP - General Family Practice 06/19/13 documented as of this encounter
--- OUTSIDE RECORDS SUMMARY | 2024-10-13 22:01 | XMS_ITS | Encounter Summary ---
Author Organization [facility] Address [address] [place] [address] Care Team Providers Care Clothing And Textiles Teacher Name Role Phone Charissa Cobb MD Primary Care Provider [phone] Encounter Details Date Type Department Care Team (Late st Contact Info) Description 06/22/2019 Correspondence None Inactive, Provider DME PATIENT INSTRUCTION/PLAN OF CARE Social History Tobacco Use Types Packs/Day Years Used Date Smoking Tobacco: Former Smokeless Tobacco: Never Alcohol Use Standard Drinks/Week Comments Yes 7 (1 standard drink = 0.6 oz pur e alcohol) wine with dinner PHQ-2 Answer Date Recorded PHQ-2 Score 0 06/11/2019 Sex and Gender Information Value Date Recorded [...] Appointment [facility] [address] [place] [address] 10/16/2024 11:40 AM CDT Appointment [facility] [address] [place] [address] Shahida Parnell, CHEMISTRY QUALITY CONTROL ANALYST, STAFF PSYCHOLOGIST [address] [place] [phone] 10/23/2024 7:45 AM CDT Appointment [facility] [address] [place] [address] 11/28/2024 10:30 AM CDT Appointment [facility] [address] [place] [address]. [place] [address] Zahida Calloway MD [address] [place] [id number] 02/12/2025 8:45 AM CDT Appointment [facility] [address] [place] [address] Palma Villegas MD [address] [place] [address] [place] [address] 04/10/2025 2:20 PM CASH ANALYST [facility] [address] [address] Cheryl De Leon, [address] [place] [address] documented as of this encounter Visit Diagnoses Not on filedocumented in this encounter Care Teams Clothing And Textiles Teacher Relationship Specialty Start Date End Date Charissa Cobb MD [address] [place] [address] [place] [address] PCP - General Family Practice 06/19/13 documented as of this encounter
--- OUTSIDE RECORDS SUMMARY | 2024-10-13 22:01 | XMS_ITS | Clinical Summary ---
[facility] Address [address] [place] [address] Care Team Providers Care Safety And Security Manager Name Role Phone Charissa Cobb MD Primary Care Provider [phone] Source Comments You are receiving this document as you are listed as the primary care provider,follow-up provider, or the patient has been referred to you for consultation.This is in compliance with the Medicare and[facility] EHR Incentive Program,which states Providers who transition their patient to another setting of careor provider of care or refers their patient to another provider of care shouldprovide summary care record for each transition of care or referral. [employer] Allergies Active Allergy Reactions Criticality Noted Date Comments Bee Venom 05/25/2010 Beta Adrenergic Blockers Other, see comments 10/27/2022 While on allergy shots due to risk of allergy reaction and potential decreased effect of Epi-pen when on a beta-paras. Can go on them but would need to discuss with allergists before receiving allergy shots. Medications * This document contains information received from the source organization and may not represent a complete record from that organization. aspirin 81 MG chewable tabletIndicatio ns:Ischemic Stroke Chew and swallow 1 Tablet (81 mg) by mouth daily. Indications: Stroke Due To Limited Blood Flow Do not start before March 02, 2024. 100 Tablet 3 03/02/20 24 Active atorvastatin (LIPITOR) 40 MG tabletIndicatio ns:Cerebrovascu lar Accident,to lower cholesterol Take 1 Tablet (40 mg) by mouth every evening. Indications: Cerebrovascular Accident or Stroke, to lower cholesterol 90 Tablet 3 03/01/20 24 025 Active EPINEPHrine (EPIPEN) 0.3 MG/0.3ML injection Inject 0.3 mL (0.3 mg) intramuscularly as needed (for allergic reaction). May repeat. 03/09/20 24 Active ALLERGY VENOM 100 MCG/ML, RED, Mixed Vespid 100mcg/ml Exp: 11/18/2023 03/09/20 Active fluorouracil (EFUDEX) 5 % cream Apply to face, ears and scalp once or twice daily for 2-4 weeks. Wash hands after applying. Avoid sun. 40 g 1 08/08/19 25 Active metoprolol succinate (TOPROL XL) 25 MG 24 hour release tablet Take 1 Tablet (25 mg) by mouth daily. 90 Tablet 3 09/29/19 25 026 Active sotalol (BETAPACE) 80 MG tablet Take 1 Tablet (80 mg) by mouth two times a day. 180 Tablet 3 09/28/19 25 026 Active Active Problems Problem Noted Date Diagnosed Date Syncope 09/23/2024 Sustained ventricular tachycardia 09/23/2024 Chronic anemia 09/23/2024 History of stroke 09/23/2024 Elevated troponin 09/23/2024 Cardiac pacemaker in situ 09/12/2024 Overview (09/26/2024): Dual Chamber Medtronic [place] XT MRI SureScan - MRI conditional 09/26/2024 upgraded to dual chamber ICD : BiV Medtronic [place] XT HF Quad FIELD SERVICE SUPERVISOR-D ICD MRI SureScan Cardiac Defibrillator - MRI Conditional Intermittent complete heart block 09/12/2024 Ischemic stroke 03/01/2024 Dysarthria 02/29/2024 Stroke-like symptoms 02/29/2024 History of prostate cancer 02/29/2024 History of basal cell carcinoma (BCC) of skin Overview (03/01/2023): BCC, right upper back, s/p ED&C 08/24/2022 Thyroid nodule 01/01/2021 Non-recurrent unilateral ing uinal hernia without obstruction or gangrene 01/26/2018 Prostate cancer 09/29/2016 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 CAREPLAN: ADVANCE DIRECTIVES/CODE STATUS 014 History of exposure to asbestos 08/29/2008 Overview (01/08/2015): ICD 10 Need for desensitization to allergens 12/28/2006 Overview (09/23/2021): Allergy Shot Care Plan for Alex Yeboah [...] LPN 09/23/2021, 4:37 PM Mitral valve disorder 06/13/2002 Overview (01/30/2015): Epic Ostium secundum type atrial septal defect 2002 Overview (12/22/2016): SECUNDUM ATRIAL SEPT DEF(aka FORAMEN) Resolved Problems Problem Noted Date Diagnosed Date Resolved Date SSS (sick sinus syndrome) 09/23/2024 Combined form of age-related cataract, right eye 06/16/2023 12/12/2023 Combined form of age-related cataract, left eye 06/16/2023 12/12/2023 Knee stiffness 11/28/2013 06/12/2019 Actinic keratosis of left cheek 06/28/2013 01/19/2021 BPH with obstruction/lower u rinary tract symptoms 04/06/2004 09/29/2016 Overview (12/22/2016): Hypertrophy of prostate with urinary obstruction and other lower urinary tract symptoms (LUTS) Toxic effect of venom 06/13/20022015 Overview (09/18/2015): Allergy Shot Care Plan for Alex Yeboah Date of Order: August Ordering Provider: Dr. Zahida Calloway Obtained patient signature on Allergy Extract Refill consent form to order a year's worth of allergy extract. Consent sent to be scanned into [facility]. Cristy Giles LPN 09/03/2015, 10:16 AM Double checked Dixie Ramsey LPN 09/18/2015, 3:04 PM Serum 1: Mixed Vespid Date Shots Started: April 23 2002 Maintenance Dose: 1.0 mL of 100 mcg - RED Comments: Cut back 1 steps with new extract and rebuild to 1ml of 100 mcg RED. and okay to maintain every 8 weeks Cristy Giles LPN Benign prostatic hyperplasia 06/13/2002 04/06/2004 Encounters Date Type Department Care Team Description 10/09/2024 Patient Outreach [facility] [address] [place] [address] Salena Agustin RN 10/05/2024 7:40 AM CDT Office Visit Optometry at [facility] [address] [address] Billy Mao, HARESH Visit for eye and vision exam (Primary Dx); Myopia of left eye; Regular astigmatism of right eye; Hyperopia of right eye; Presbyopia; Pseudophakia of both eyes; Posterior vitreous detachment of both eyes 10/01/2024 11:30 AM CDT Nursing Visit [facility] [address] [facility] [place] [address] Nurse, [id number] Ephys Sustained ventricular tachycardia (HRC) (Primary Dx) 09/28/2024 Patient Outreach [facility] [address] [place] [address] Salena Agustin RN 09/25/2024 Orders Only [facility] [address] [place] [address]. [place] [address] Shahida Parnell APRN, CNP Ventricular tachycardia, sustained (HRC) (Primary Dx) 09/23/2024 2:40 PM CDT - 09/27/2024 11:18 AM CDT Hospital Encounter [facility]Tele[facility] [address] [place] [address]. [place] [address] Ward Nguyen MD Daley, Blake G, Palak Hagen MD Ventricular tachycardia (paroxysmal) (HRC); Syncope, cardiogenic Discharge Disposition: Home 09/23/2024 Orders Only [facility] Ketan Giang MD 09/23/2024 Orders Only [facility] Ketan Giang MD 09/23/2024 Nurse Triage Careline [address] [facility] [place] [address] Unassigned, Provider Post-Op Problem; PASSED OUT 09/12/2024 1:57 PM CDT - 09/12/2024 5:30 PM CDT Hospital Encounter [facility] [address] [place] [address]. [place] [address] Marcos Sarabia MD Intermittent complete heart block (HRC) (Primary Dx); Mitral valve disorder (HRC); Second degree AV block; Complete heart block (HRC) Discharge Disposition: Home 09/12/2024 Orders Only [facility] DE[facility] Ketan Giang MD 09/12/2024 Orders Only [facility] DE[facility] ProviderKetan MD 09/11/2024 7:45 AM CDT Nursing Visit [facility] [address] [place] [address] Allergic to insect bites and stings (Primary Dx) 09/11/2024 Notes/Orders [facility] V[facility] Spec Proc Sup [address] [place] [address]. [place] [address] Tracy Cramer RN 09/03/2024 12:15 PM CDT Ancillary Procedure [facility] [address] [place] [address]. [place] [address] Abhijit Girard MD Mitral valve disorder (HRC); Second degree AV block; Complete heart block (HRC) 09/03/2024 11:50 AM CDT Lab Visit [facility] [address] [place] [address]. [place] [address] Mitral valve disorder (HRC); Second degree AV block; Complete heart block (HRC) 09/03/2024 10:15 AM CDT Office Visit [facility] [address] [place] [address]. [place] [address] Abhijit Girard MD Complete heart block (HRC) (Primary Dx); Mitral valve disorder (HRC); Second degree AV block 09/03/2024 Results Follow-Up [facility] [address] [place] [address]. [place] [address] Montse Leon RN 09/03/2024 Telephone [facility] [address] [place] [address]. [place] [address] Abhijit Girard MD Patient Education (New Implant Dual Pacemaker [CPT 70374]/) 08/07/2024 7:45 AM CDT Office Visit [facility] [address] [place] [address] Palma Villegas MD Multiple benign nevi (Primary Dx); History of nonmelanoma skin cancer; Seborrheic keratoses; Lentigines; Actinic skin damage; Esquivel angioma; Actinic keratosis 2024 Notes/Orders [facility] [employer] [address] [facility] [place] [phone] Wesley Romero JANES (obstructive sleep apnea) (Primary Dx) 07/31/2024 9:00 AM CDT Lab Visit [facility] [address] [place] [address] Prostatic malignant neoplasm (HRC) (Primary Dx) 07/31/2024 8:15 AM CDT Nursing Visit [facility] [address] [place] [address] Allergic to insect bites and stings (Primary Dx) 07/31/2024 Notes/Orders [facility] [address] [facility] [place] [address] Zahida Calloway MD from Last 3 Months Immunizations Immunization Administration Dates Next Due Flu Vac (3+ yrs) 01/20/2011, 7,03/03/2006,2003,03/23/2002,03/07/2001,02/25/2000,1 Flu Vac Preserv Free (3+yrs) 03/01/2009 [id number] 05/12/2009 HepA Adult (19+ yrs) 02/25/2000,02/23/1999 HepB Adult (Engerix-B, 20+ y rs, 3 dose series) 09/01/1999,03/31/1999,02/26/1999 Influenza IIV3 (Trivalent) F luzone Highdose, 65+ Yrs (49931) 01/09/2020,02/13/2019,01/11/2018,2015,01/28/2015,01/25/2012 Influenza IIV4 (Quadrivalent ) Fluad, 65+ Yrs 02/16/2023,01/26/2021 Influenza IIV4 (Quadrivalent ) Fluzone, 65+ Yrs 02/08/2022 Influenza Vaccine TIV High D ose 65+ Yrs ([facility]) 01/18/2014,01/18/2013 Influenza aIIV3 65+ Years (Fluad) 01/23/2024 Influenza, Unspecified Formulation 01/30/2010 PCV13 (Prevnar) 07/19/2016 PPSV23 (Pneumovax) 08/29/2008 Pfizer Bivalent 12+ 02/24/2022 Pfizer COVID-19 12+ 01/23/2024,01/20/2023 Pfizer Monovalent 12+ 08/21/2021 Pfizer Monovalent 12+ Purple Top 01/26/2021,06/30,06/26/2020 Td 03/11/2004,11/16/1994 Tdap 01/26/2021,12/01/2010 Typhoid (Typhim Vi, IM) 01/20/2011,04/30/2005, Varicella 01/26/2021(Deferred: Immune by Renetta covington) YF (Yellow Fever) 02/26/1999 Zoster (Zostavax) 01/25/2012 Zoster RZV (Shingrix) 02/01/2018,09/27/2017 Family History Medical History Relation Name Comments Coronary Artery Disease Father chf Alzheimer's Mother Dior Yeboah Coronary Artery Disease Mother Dior Yeboah chf Cataract Brother 1 Glaucoma Negative Family History Macular Degeneration Negative Family History Retinal Detachment Negative Family History Relation Name Status Comments Father (Age 88) Mother Dior Yeboah (Age 91) Brother 1 Alive Brother 2 Alive Daughter Alive Sister Alive Social History Tobacco Use Types Packs/Day Years Used Date Smoking Tobacco: Former Cigarettes 1 8 0 08/01/1961 - 08/01/1969 Smokeless Tobacco: Never Tobacco Cessation:Counseling Given: Not Answered Alcohol Use Standard Drinks/Week Comments Yes 12 (1 standard drink = 0.6 oz pu re alcohol) wine with dinner [facility] [employer] Answer Date Recorded In the past 12 months has Retrotope, oil, or water [employer]ot threatened to shut off services in your [...] time in the past 12 m [facility], were you homeless or living in a custodial (including now)? 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 [address] 10/16/2024 11:40 AM CDT Appointment [facility] [address] [place] [address] Shahida Parnell, CRUSHER OPERATOR, HOT MIX OPERATOR [address] [place] [phone] 10/23/2024 7:45 AM CDT Appointment [facility] [address] [place] [address] 11/28/2024 10:30 AM CDT Appointment [facility] [address] [address] [place] [address]. [place] [address] Zahida Calloway MD [address] [place] [address] 02/12/2025 8:45 AM CDT Appointment [facility] [address] [place] [address] Palma Villegas MD [address] [place] [address] [place] [address] 04/10/2025 2:20 PM DAMAGE APPRAISER Appointment [facility] [address] [address] Cheryl De Leon, [address] [place] [address] Health Maintenance Due Date Last Done Comments RSV Vaccine (1 - 1-dose 75+ series) 08/01/2018 Medicare Annual Wellness Visit 05/02/2024 07/18/2023, 02/21/2023, 12/08/2021, Additional history exists COVID-19 Vaccine ( season) 2024 01/23/2024, 01/20/2023, 02/24/2022, Additional history exists DTaP/Tdap/Td Vaccine (3 - Tdap) 01/26/2031 01/26/2021, 12/01/2010, 03/11/2004, Additional history exists HepB Vaccine Completed 09/01/1999, 03/04, 02/26/1999 HepA Vaccine Completed 02/25/2000, 02/23/1999 Pneumococcal Vaccine 50+ Yrs Completed 07/19/2016, 08/29/2008 Colonoscopy Discontinued 09/16/2016, 09/2006, 06/07/2006 Zoster/Shingles Vaccine Completed 02/02/20, 09/27/2017, 01/25/2012 Influenza Vaccine Completed 01/23/2024, , 02/08/2022, Additional history exists Hib Vaccine Aged Out No longer eligi ble based on patient's age to complete this topic MCV4 Vaccine Aged Out No longer eligi ble based on patient's age to complete this topic Meningococcal B Vaccine Aged Out No l onger eligible based on patient's age to complete this topic Medical Devices Implanted Type Area [employer]eles[employer] Team Leader Device Identifier Shelf Expiration Date Model / Serial / Lot Dual Chamber Medtronic [place] Xt Mri Surescan-Mri Conditional Implanted:2024 by Marcos Sarabia MD (Quantity not on file) Explanted:2024 by Abhijit Girard MD (Quantity not on file) Cardiac- Rhythm Medtronic DUAL CHAMBER MEDTRONIC JUAN DIEGO XT MRI SURESCAN - MRI CONDITIONAL / / Description:Dual Chamber Med tronic [place] XT DR BAUTISTA SureScan - MRI conditional Biv Medtronic [place] Xt Hf Quad Therapeutic Recreation Specialist-D Icd Mri Surescan Cardiac Defibrillator-Mr i Conditional-09/26 Implanted:2024 by Abhijit Girard MD (Quantity not on file) Cardiac- Rhythm Medtronic BIV MEDTRONIC [place] XT HF QUAD FIELD SERVICE SUPERVISOR-D ICD MRI SURESCAN CARDIAC DEFIBRILLATOR - MRI CONDITIONAL / / Description:Upgraded from rosa isela reilly chamber pacemaker to dual chamber ICD on 09/26/2024 BiV Medtronic [place] XT HF Quad FIELD SERVICE SUPERVISOR-D ICD MRI SureScan Cardiac Defibrillator - MRI Conditional Plug [employer] Perfix 1.6 - [id number] Implanted:Qty: 1 on 02/26/2011 at [facility] DEVICE C R Bard 11/27/2015 [id number] / / [id number] Mesh Progrip 14x9 Lt - [id number] Implanted:Qty: 1 on 02/10/2018 by Jerrell Martinez MD at [facility] DEVICE Left: INGUINAL Covidien 07/30/2022 [id number] / / [id number] Clareon Toric Uv Iol15.0 Implanted:Qty: 1 on 07/27/2023 by Dennis Andersen MD at [facility] DEVICE Right: EYE [employer] 04/08/2026 CCW0 T5.150 / [id number] / Clareon Vivity Toric Uv Iol 16.5 Implanted:Qty: 1 on 08/10/2023 by Dennis Andersen MD at [facility] DEVICE Left: EYE [employer] 08/08/2026 CCW0 T3.165 / [id number] / Procedures Procedure Name Priority Date/Time Associated Diagnosis Comments ECG 12 LEAD OUTPATIENT Routine 10/01/2024 9:41 AM CDT Sustained ventricular tachycardia (HRC) INPATIENT TELEMETRY MONITORING Routine 09/27/2024 9:40 AM [...] LEAD INPATIENT Routine 09/26/2024 7:00 AM CDT COMPLETE BLOOD COUNT-NO DIFF Routine 09/26/2024 4:36 AM CDT BASIC METABOLIC PANEL Routine 09/26/2024 4:36 AM CDT MAGNESIUM Routine [...] FUNCTION PANEL) Add-On 09/25/2024 5:25 AM CDT MAGNESIUM Routine 09/25/2024 5:25 AM CDT COMPLETE BLOOD COUNT-NO DIFF Routine 09/25/2024 5:25 AM CDT BASIC METABOLIC PANEL Routine 09/25/2024 5:25 AM CDT INPATIENT TELEMETRY MONITORING Routine 09/24/2024 7:04 PM CDT INPATIENT TELEMETRY MONITORING Routine 09/24/2024 3:49 PM CDT INPATIENT TELEMETRY MONITORING Routine 09/24/2024 9:28 AM CDT ECHOCARDIOGRAM Routine 09/24/2024 7:18 AM CDT MAGNESIUM Routine 09/24/2024 5:01 AM CDT BASIC METABOLIC PANEL Routine 09/24/2024 5:01 AM CDT COMPLETE BLOOD COUNT-NO DIFF Routine 09/24/2024 5:01 AM CDT INPATIENT TELEMETRY MONITORING Routine 09/24/2024 12:16 AM CDT INPATIENT TELEMETRY MONITORING Routine 09/23/2024 7:[address] HEAD WO IV CONT STAT 09/23/2024 6: 01 PM CDT XR PORTABLE CHEST 1 VIEW Routine 09/23/2024 5:41 PM CDT TROPONIN I, HIGH SENSITIVITY (2 HOUR) Specified Time 09/23/2024 5:26 PM CDT TROPONIN I, HIGH SENSITIVITY (0 HOUR) STAT Add-On 09/23/2024 3:06 PM CDT MAGNESIUM Add-On 09/23/2024 3:06 PM CDT COMPLETE BLOOD COUNT-W/DIFF STAT 09/23/2024 3:06 PM CDT BASIC METABOLIC PANEL STAT 09/23/2024 3:06 PM CDT CBC AND DIFFERENTIAL PANEL STAT 09/23/2024 3:06 PM CDT PACEMAKER EVALUATION Routine 09/23/2024 2:56 PM CDT ECG 12 LEAD INPATIENT STAT 09/23/2024 2:50 PM CDT CARDIAC PROCEDURE--SCAN 09/23/2024 PROCEDURE IP 09/23/2024 XR CHEST 2 VIEWS Routine 09/12/2024 5:03 PM CDT ECG 12 LEAD INPATIENT Routine 09/12/2024 4:31 PM CDT PERMANENT PACEMAKER IMPLANTATION Routine 09/12/2024 3:52 PM CDT 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 Complete heart block (HRC) EKG 09/12/2024 PROCEDURE IP 09/12/2024 XR CHEST 2 VIEWS Routine 09/03/2024 12:3 2 PM CDT 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 Complete heart block (HRC) CREATININE / GFR Routine 09/03/2024 12:0 8 [...] degree AV block Complete heart block (HRC) ECG 12 LEAD OUTPATIENT Routine 09/03/2024 10:03 AM CDT Mitral valve disorder (HRC) PROSTATIC SPECIFIC ANTIGEN (DIAGNOSTIC F/U) Routine 07/31/2024 9:10 AM CDT Prostatic malignant neoplasm (HRC) COLONOSCOPY Routine 09/16/2016 9:32 AM CDT Screen for colon cancer from Last 3 Months or Most Recently Relevant to Health Maintenance Results * ECG 12 Lead Outpatient (10/01/2024 9:41 AM CDT) Only the most recent of2 resultswithin the time period is included. Ventricular Rate 70 BPM [facility] Atrial Rate 70 BPM [facility] P-R Interval 184 ms [facility] QRS Duration 160 ms [facility] QT 454 ms [facility] QTC 490 ms [facility] P [place] 73 degrees M[facility] R [place] -67 degrees [facility] T [place] 97 degrees [facility] 10/01/2024 9:41 AM CDT Narrative [facility] - 10/01/2024 10:19 AM CDT AV dual-paced rhythm Abnormal ECG When compared with ECG of 27-SEP-2024 07:19, Vent. rate has increased BY 6 BPM Confirmed by Dom Mora ([id number]) on 10/01/2024 10:19:00 AM Procedure Note Dom Mora MD - 10/01/2024 AV dual-paced rhythm Abnormal ECG When compared with ECG of 27-SEP-2024 07:19, Vent. rate has increased BY 6 BPM Confirmed by Dom Mora ([id number]) on 10/01/2024 10:19:00 AM us Abhijit Girard MD PN ECG ORDERABLES Final Resul t [facility] [address] [place] [address] * INPATIENT TELEMETRY MONITORING (09/27/2024 9:40 AM CDT) Only the most recent of13 resultswithin the time period is included. TELE INTERPRETATION Biventricular Paced pacheco epperson RN [facility] 09/27/2024 9:40 AM CDT Narrative [facility] - 09/27/2024 9:49 AM CDT Biventricular Paced pacheco epperson RN us Interface Provider EKG Final Resu lt Performing Organization Address [facility] Co de Phone Number [facility] [address] [place] [address] * ECG 12 Lead Inpatient, On post-op day #1 (09/27/2024 7:19 AM CDT) Only the most recent of5 resultswithin the time period is included. Ventricular Rate 64 BPM [facility] Atrial Rate 64 BPM [facility] P-R Interval 184 ms [facility] QRS Duration 164 ms [facility] QT 488 ms [facility] QTC 503 ms [facility] P [place] 18 degrees MUSE [facility] R [place] -76 degrees [facility] T [place] 83 degrees [facility] 09/27/2024 7:19 AM [...] Dom Mora ([id number]) on 09/27/2024 8:29:01 AM us Abhijit Girard MD PN ECG ORDERABLES Final Resul t Performing Organization Address City/[facility]/ZIP Co de Phone Number [facility] [address] [place] [address] * Magnesium (09/27/2024 6:02 AM CDT) Only the most recent of5 resultswithin the time period is included. Magnesium 2.0 1.6 - 2.6 mg/dL 09/27/2024 7:00 AM CDT [facility] Blood Venipuncture / Unknown 09/27/2024 6:02 AM CDT 09/27/2024 6:22 AM CDT us Palak Whaley MD LAB_1 Final Result [facility] [address] [place], [place] [address] * XR Chest 2 Views (09/26/2024 3:21 PM CDT) Only the most recent of3 resultswithin the time period is included. Anatomical Region Laterality Modality Chest, Lung Digital [...] osseousfindings. IMPRESSION No complications following ICD placement. Abhijit Girard MD RAD GD Final Result * ICD Procedure (Inpatient) (09/26/2024 9:41 AM CDT) Narrative POCT - 09/26/2024 9:41 AM CDT Abhijit Girard MD 09/26/2024 9:51 AM PROCEDURE REPORT: Upgrade of existent pacemaker with new right ventricular ICD lead and removal of pre-existing right ventricular pacemaker lead IMPLANTABLE CARDIOVERTER DEFIBRILLATOR (ICD) INSERTION Cardiac Electrophysiology Service [facility] Cardiac Clerical Assigner: Abhijit Girard MD Date: 09/26/2024 PRE-OPERATIVE DIAGNOSES: [...] was then used to place a 7 Sami sheath to allow us to replace the [...] to its final settings. Please see the principal statistical programmer printout for details. There were no [...] new ICD pulse generator is a Medtronic, [place] XT DR, model number [id number]. Shahida Parnell CRUSHER OPERATOR, HOT MIX OPERATOR PN ELECTROPHYSIOLO GY ORDERABLE Final Result POCT * Basic Metabolic Panel (IN AM) (09/26/2024 4:36 AM CDT) Only the most recent of4 resultswithin the time period is included. Sodium 138 136 - 145 mmol/L 09/26/2024 5:17 AM CDT [facility] Potassium 4.8 3.5 - 5.1 mmol/L 09/26/2024 5:17 AM CDT [facility] Chloride 106 98 - 109 mmol/L 09/26/2024 5:17 AM CDT [facility] CO2 21 20 - 29 mmol/L 09/26/2024 5:17 AM CDT [facility] Anion Gap 11 6 - 16 mmol/L 09/26/2024 5:17 AM CDT [facility] Calcium 9.4 8.4 - 10.4 mg/dL 09/26/2024 5:17 AM CDT [facility] BUN 21 7 - 26 mg/dL 09/26/2024 5:17 AM CDT [facility] Creatinine 1.02 0.73 - 1.18 mg/dL 09/26/2024 5:17 AM CDT [facility] Glucose 83 70 - 100 mg/dL 09/26/2024 5:17 AM CDT [facility] Comment:The given reference range is for the fasting state. Non-fasting reference range for glucose is 70 - 180 mg/dL. GFR, Estimated >60 >60 mL/min/1.7 3m2 09/26/2024 5:17 AM CDT [facility] Blood Venipuncture / Unknown 09/26/2024 4:36 AM CDT 09/26/2024 4:52 AM CDT us Palak Whaley MD LAB_1 Final Result [facility] [address] * (ABNORMAL) Complete Blood Count-No Diff (IN AM) (09/26/2024 4:36 AM CDT) Only the most recent of4 resultswithin the time period is included. [facility] WBC 4.3 3.5 - 10.5 x10(9)/L 09/26/2024 4:55 AM CDT [facility] RBC 4.22(L) 4.32 - 5.72 x10(12)/L 09/26/2024 4:55 AM CDT [facility] Hemoglobin 13.5 13.5 - 17.5 g/dL 09/26/2024 4:55 AM CDT [facility] HCT 39.3 38.8 - 50.0 % 09/26/2024 4:55 AM CDT [facility] MCV 93.1 80.0 - 100.0 fL 09/26/2024 4:55 AM CDT [facility] MCH 32.0 27.6 - 33.3 pg 09/26/2024 4:55 AM CDT [facility] MCHC 34.4 31.5 - 35.2 g/dL 09/26/2024 4:55 AM CDT [facility] RDW 12.3 11.9 - 15.5 % 09/26/2024 4:55 AM CDT [facility] Platelets 179 150 - 450 x10(9)/L 09/26/2024 4:55 AM CDT [facility] Automated NRBC 0 <=0 /100 WBC 09/26/2024 4:55 AM CDT [facility] Blood Venipuncture / Unknown 09/26/2024 4:36 AM CDT 09/26/2024 4:52 AM CDT Palak Whaley MD LAB_1 Final Result [facility] [address] * Potassium (09/25/2024 4:45 PM CDT) Only the most recent of2 resultswithin the time period is included. Potassium 4.3 3.5 - 5.1 mmol/L 09/25/2024 5:24 PM CDT [facility] Blood Venipuncture / Unknown 09/25/2024 4:45 PM CDT 09/25/2024 4:50 PM CDT us Palak Whaley MD LAB_1 Final Result Performing Organization Address [facility] de Phone Number [facility] [address] * Cardiac Cath Procedure (09/25/2024 11:25 AM CDT) 09/25/2024 11:2 5 AM CDT Narrative [facility] - 09/25/2024 11:56 AM CDT Conclusions 1. Poik-vy-myomjcnu coronary artery atherosclerosis. 2. Coronary artery calcification. 3. Low LVEDP of 1 mmHg, likely indicating volume depletion. 4. Demand ischemia, in the setting of VT, likely accounts for the modest hs- Troponin elevation. Report Signatures Finalized by Gregory Adams on 09/25/2024 11:56 AM Event Lo09/25/2024 10:54:37 AM: Phase: Baseline 09/25/2024 10:56:45 AM: COR/LV PROCEDURE INFORMATION 09/25/2024 10:57:59 AM: Case Event Type:Diagnostic Cath,Physician:GREGORY ADAMS 09/25/2024 11:03:23 AM: Patient arrived 09/25/2024 [...] than 10 min. 09/25/2024 11:36:56 AM: Intake laboratory technician: 100 ml 09/25/2024 11:37:01 AM: Output laboratory technician: 0 09/25/2024 11:37:05 AM: Patient Transferred with R.N.on monitor 09/25/2024 11:37:07 AM: Patient Transferred with R.N. 09/25/2024 11:38:44 AM: Patient Transferred to: 3N 09/25/2024 11:39:09 AM: SpO2 94%; HR 60 bpm; 110/59/76 NBP; LOC 2; LOP 0; RR 19/min EXP: 29 mmHg; Inventory: 6 Fr [facility] JL 3.5 JR 4 Procedure Note Gregory Adams MD - 09/25/2024 Conclusions 1. Iaop-lq-dlbnelcg coronary artery atherosclerosis. 2. Coronary artery calcification. 3. Low LVEDP of 1 mmHg, likely indicating volume depletion. 4. Demand ischemia, in the setting of VT, likely accounts for the modesths- Troponin elevation. Report Signatures Finalized by Gregory Adams on 09/25/2024 11:56 AM Event Lo09/25/2024 10:54:37 AM: Phase: Baseline 09/25/2024 10:56:45 AM: COR/LV PROCEDURE INFORMATION 09/25/2024 10:57:59 AM: Case Event Type:DiagnosticCath,Physician:GREGORY ADAMS 09/25/2024 11:03:23 AM: Patient arrived 09/25/2024 [...] than 10 min. 09/25/2024 11:36:56 AM: Intake laboratory technician: 100 ml 09/25/2024 11:37:01 AM: Output laboratory technician: 0 09/25/2024 11:37:05 AM: Patient Transferred with R.N.on monitor 09/25/2024 11:37:07 AM: Patient Transferred with R.N. 09/25/2024 11:38:44 AM: Patient Transferred to: 3N 09/25/2024 11:39:09 AM: SpO2 94%; HR 60 bpm; 110/59/76 NBP; LOC 2; LOP 0;RR 19/min EXP: 29 mmHg; Inventory: 6 Fr Juliann Ren JL 3.5 JR 4 us Jame Parham MD PN CARDIAC CATH ORDERABLES Fin al Result [facility] [address] [place] [address] * (ABNORMAL) Hepatic Function Panel (09/25/2024 5:25 AM CDT) Alkaline Phosphatase 96 40 - 150 U/L 09/25/2024 9:37 AM CDT [facility] Bilirubin, Total 0.7 0.2 - 1.2 mg/dL 09/25/2024 9:37 AM CDT [facility] Bilirubin, Direct 0.3 0.0 - 0.5 mg/dL 09/25/2024 9:37 AM CDT [facility] AST (SGOT) 36 10 - 40 U/L 09/25/2024 9:37 AM CDT [facility] ALT (SGPT) 33 0 - 55 U/L 09/25/2024 9:37 AM CDT [facility] Protein, Total 6.0(L) 6.4 - 8.3 g/dL 09/25/2024 9:37 AM CDT [facility] Albumin 3.7 3.5 - 5.0 g/dL 09/25/2024 9:37 AM CDT [facility] Blood Venipuncture / Unknown 09/25/2024 5:25 AM CDT 09/25/2024 5:37 AM CDT us Palak Whaley MD LAB_1 Final Result Performing Organization Address City/State/[facility] Co de Phone Number [facility] [address] * Echocardiogram (09/24/2024 7:18 AM CDT) 09/24/2024 [...] Male Procedure Staff Interpreting DOM MORA MD Order Booker: District Superintendent: MARILUZ DAVIS Ordering Provider: GEOVANNY ZHANG DO Attending Physician: WARD NGUYEN MD [...] Male Procedure Staff Interpreting DOM MORA MD Order [place]: District Superintendent: MARILUZ DAVIS Ordering Provider: GEOVANNY ZHANG DO Attending Physician: WARD NGUYEN MD us Geovanny Zhang DO ET ECHO ORDERABLES Final Result PN ECHO * CT Head WO IV Cont (09/23/2024 [...] intracranial finding. No significant change since 02/29/2024. Geovanny Nohemy [employer] RAD CT Final Result * XR Portable [...] or pleural effusion. Bony thorax is unremarkable. Geovanny Nohemy Zhang DO RAD PORTABLE Final Result * (ABNORMAL) hs-troponin i (2 hour) (09/23/2024 5:26 PM CDT) hs-troponin i (2 hour) 99(H) <=35 ng/L 09/23/2024 6:09 PM CDT [facility] hs-troponin i change 56(H) -2 - 2 ng/L 09/23/2024 6:09 PM CDT [facility] Comment:Changing Blood Venipuncture / Unknown 09/23/2024 5:26 PM CDT 09/23/2024 5:34 PM CDT Geovanny Zhang DO LAB_1 Final Result Performing Organization Address [facility] Co de Phone Number [facility] [address] [place] [address] * (ABNORMAL) hs-troponin i (0 hour) (09/23/2024 3:06 PM CDT) hs-troponin i (0 hour) 43(H) <=35 ng/L 09/23/2024 5:07 PM CDT [facility] Comment:Criteria met a timed 2h reflex order has been created. Blood Venipuncture / Unknown 09/23/2024 3:06 PM CDT 09/23/2024 3:11 PM CDT Geovanny Zhang DO LAB_1 Final Result Performing Organization Address [facility] de Phone Number [facility] [address] [place] [address] * (ABNORMAL) Complete Blood Count-W/Diff (09/23/2024 3:06 PM CDT) Pathologist [facility] WBC 5.1 3.5 - 10.5 x10(9)/L 09/23/2024 3:14 PM CDT [facility] RBC 4.06(L) 4.32 - 5.72 x10(12)/L 09/23/2024 3:14 PM CDT [facility] Hemoglobin 12.8(L) 13.5 - 17.5 g/dL 09/23/2024 3:14 PM CDT [facility] HCT 37.4(L) 38.8 - 50.0 % 09/23/2024 3:14 PM CDT [facility] MCV 92.1 80.0 - 100.0 fL 09/23/2024 3:14 PM CDT [facility] MCH 31.5 27.6 - 33.3 pg 09/23/2024 3:14 PM CDT [facility] MCHC 34.2 31.5 - 35.2 g/dL 09/23/2024 3:14 PM CDT [facility] RDW 12.4 11.9 - 15.5 % 09/23/2024 3:14 PM CDT [facility] Platelets 192 150 - 450 x10(9)/L 09/23/2024 3:14 PM CDT [facility] Automated NRBC 0 <=0 /100 WBC 09/23/2024 3:14 PM CDT [facility] Neutrophil Absolute 4.0 1.7 - 7.0 10(9)/L 09/23/2024 3:14 PM CDT [facility] Lymphocyte Absolute 0.5(L) 1.0 - 4.8 10(9)/L 09/23/2024 3:14 PM CDT [facility] Monocyte Absolute 0.5 0.2 - 0.9 10(9)/L 09/23/2024 3:14 PM CDT [facility] Eosinophil Absolute 0.0 0.0 - 0.5 10(9)/L 09/23/2024 3:14 PM CDT [facility] Basophil Absolute 0.0 0.0 - 0.3 10(9)/L 09/23/2024 3:14 PM CDT [facility] Immature Granulocyte % 0.2 0.0 - 0.5 % 09/23/2024 3:14 PM CDT [facility] Blood Venipuncture / Unknown 09/23/2024 3:06 PM CDT 09/23/2024 3:11 PM CDT us Ward Nguyen MD LAB_1 Final Result [facility] [address] [place] [address], [facility] * Pacemaker Evaluation (09/23/2024 2:56 PM CDT) 09/23/2024 2:56 PM CDT Narrative PACEART - 09/23/2024 2:56 PM CDT Dual chamber pacemaker functioning as programmed. This is a [employer] Stix transmission. Pt presented to [facility] for evaluation of syncope. The device [...] MD PN ELECTROPHYSIOLOGY ORDERABLE F inal Result PACEART * PROCEDURE IP (09/23/2024) Only the most recent of2 resultswithin the time period is included. Anatomical Region Laterality Modality Other us Interface Provider DUMMY/OTHER/AR Final Resu lt * CARDIAC PROCEDURE--SCAN (09/23/2024) us Interface Provider DUMMY/OTHER/AR Final Resu lt * Permanent Pacemaker Implantation (Outpatient) (09/12/2024 3:52 PM CDT) Narrative [facility] - 09/12/2024 3:52 PM CDT Marcos Sarabia MD 09/12/2024 3:58 PM Date of procedure: 09/12/2024 Procedure: Dual chamber (DDD) pacemaker and lead implant (His RV lead); His bundle electrogram recording Pre-procedure diagnosis: Intermittent complete heart block Post-procedure diagnosis:Same Clerical Assigner: Marcos Sarabia MD Estimated blood loss: Minimal [...] and lead information Pulse generator is a [employer] [place] XT DR, Product # [id number]. RA lead [...] MD PN ELECTROPHYSIOLOGY ORDERABL E Final Result Performing Organization Address [facility] Co de Phone Number [facility] [address] [place] [address] * EKG (09/12/2024) us Interface Provider EKG Final Resu lt * Creatinine / GFR (09/03/2024 12:08 PM CDT) [facility] Creatinine 0.92 0.73 - 1.18 mg/dL 09/03/2024 12:47 PM CDT [facility] GFR, Estimated >60 >60 mL/min/1.7 3m2 09/03/2024 12:47 PM CDT [facility] Blood Venipuncture / Unknown 09/03/2024 12:08 PM CDT 09/03/2024 12:10 PM CDT Abhijit Girard MD LAB_1 Final Result Performing Organization Address [facility] Co de Phone Number [facility] [address] [place], [place] [address] * Sodium (09/03/2024 12:08 PM CDT) [facility] Sodium 136 136 - 145 mmol/L 09/03/2024 12:47 PM CDT [facility] Blood Venipuncture / Unknown 09/03/2024 12:08 PM CDT 09/03/2024 12:10 PM CDT Abhijit Girard MD LAB_1 Final Result Performing Organization Address [facility] Co de Phone Number [facility] [address] * BUN (09/03/2024 12:08 PM CDT) BUN 25 7 - 26 mg/dL 09/03/2024 12:47 PM CDT [facility] Blood Venipuncture / Unknown 09/03/2024 12:08 PM CDT 09/03/2024 12:10 PM CDT Abhijit Girard MD LAB_1 Final Result Performing Organization Address [facility] de Phone Number [facility] [address] * Prostatic Specific Antigen (F/U) (07/31/2024 9:10 AM CDT) Pathologist [facility] Prostatic Specific Antigen <0.1 0.0 - 4.0 ng/mL 07/31/2024 6:42 PM CDT [facility] Blood Venipuncture / Unknown 07/31/2024 9:10 AM CDT 07/31/2024 9:10 AM CDT Narrative [facility] - 07/31/2024 6:42 PM CDT The [employer] PSA Chemiluminescent immunoassay is used. Results obtained with different test methods or kits cannot be used interchangeably. Fabricio Massey MD LAB_1 Final Result Performing Organization Address [facility] Co de Phone Number [facility] [address] * COLONOSCOPY [[id number]] (09/16/2016 9:32 AM CDT) 09/16/2016 9:32 AM CDT Narrative [facility]) - 09/16/2016 10:19 AM CDT Instrument Name: 175 Indications: High risk colon cancer surveillance: Personal history of colonic polyps Providers: Tim Milligan MD, Tali Castillo RN, Deepthi Hill LPN Referring MD: Medicines: Midazolam 2 mg IV, Fentanyl 100 micrograms IV Complications: No immediate complications. Procedure: Pre-Anesthesia Assessment: - Airway Examination: normal oropharyngeal airway and neck mobility. - ASA Grade Assessment: II - A patient with mild systemic disease. - After reviewing the risks and benefits, the patient was deemed in satisfactory condition to undergo the procedure. - The anesthesia plan was to use moderate sedation/analgesia (conscious sedation). After I obtained informed consent, the scope was passed under direct vision. Prior to sedation, patient identity and procedure was reverified. Throughout the procedure, the patient's blood pressure, pulse, and oxygen saturations were monitored continuously. The PCF-H190L was introduced through the anus and advanced to the cecum, identified by appendiceal orifice and ileocecal valve. The colonoscopy was performed without difficulty. The patient tolerated the procedure well. The quality of the bowel preparation was good. Findings: The perianal and digital rectal examinations were normal. Many diverticula were found in the sigmoid colon. The exam was otherwise without abnormality on direct and retroflexion views. Moderate Sedation: Moderate (conscious) sedation was administered by the endoscopy nurse and supervised by the endoscopist. The following parameters were monitored: oxygen saturation, heart rate, blood pressure, and response to care. Total physician intraservice time was 22 minutes. Impression: - Diverticulosis in the sigmoid colon. - The examination was otherwise normal on direct and retroflexion views. - No specimens collected. Recommendation: - Discharge patient to home. - Repeat colonoscopy in 5-10 years for surveillance. Procedure Code(s): --- Professional --- G0105, Colorectal cancer screening; colonoscopy on individual at high risk 36555, Moderate sedation services provided by the same physician or other qualified health child care education coordinator performing the diagnostic or therapeutic service that the sedation supports, requiring the presence of an independent trained observer to assist in the monitoring of the patient's level of consciousness and physiological status; initial 15 minutes of intraservice time, patient age 5 years or older Diagnosis Code(s): --- Professional --- Z12.11, Encounter for screening for malignant neoplasm of colon Z86.010, Personal history of colonic polyps K57.30, Diverticulosis of large intestine without perforation or abscess without bleeding CPT copyright 2016 [employer]. All rights reserved. The codes documented in this report are preliminary and upon block handler review may be revised to meet current compliance requirements. Attending Participation: MD Tim Mott MD 09/16/2016 10:18:56 AM Number of Addenda: 0 Note Initiated On: 09/16/2016 9:32 AM Procedure Note Tim Milligan MD - 09/16/2016 Instrument Name: 175 Indications: High risk colon cancer surveillance: Personal history of colonic polyps Providers: Tim Milligan MD, Tali Castillo RN, Deepthi Hill LPN Referring MD: Medicines: Midazolam 2 mg IV, Fentanyl 100 micrograms IV Complications: No immediate complications. Procedure: Pre-Anesthesia Assessment: - Airway Examination: normal oropharyngeal airway and neck mobility. - ASA Grade Assessment: II - A patient with mild systemic disease. - After reviewing the risks and benefits, the patient was deemed in satisfactory condition to undergo the procedure. - The anesthesia plan was to use moderate sedation/analgesia (conscious sedation). After I obtained informed consent, the scope was passed under direct vision. Prior to sedation, patient identity and procedure was reverified. Throughout the procedure, the patient's blood pressure, pulse, and oxygen saturations were monitored continuously. The PCF-H190L was introduced through the anus and advanced to the cecum, identified by appendiceal orifice and ileocecal valve. The colonoscopy was performed without difficulty. The patient tolerated the procedure well. The quality of the bowel preparation was good. Findings: The perianal and digital rectal examinations were normal. Many diverticula were found in the sigmoid colon. The exam was otherwise without abnormality on direct and retroflexion views. Moderate Sedation: Moderate (conscious) sedation was administered by the endoscopy nurse and supervised by the endoscopist. The following parameters were monitored: oxygen saturation, heart rate, blood pressure, and response to care. Total physician intraservice time was 22 minutes. Impression: - Diverticulosis in the sigmoid colon. - The examination was otherwise normal on direct and retroflexion views. - No specimens collected. Recommendation: - Discharge patient to home. - [facility] Procedure Code(s): --- Professional --- G0105, Colorectal cancer screening; colonoscopy on individual at high risk 76315, Moderate sedation services provided by the same physician or other qualified health child care education coordinator performing the diagnostic or therapeutic service that the sedation supports, requiring the presence of an independent trained observer to assist in the monitoring of the patient's level of consciousness and physiological status; initial 15 minutes of intraservice time, patient age 5 years or older Diagnosis Code(s): --- Professional --- Z12.11, Encounter for screening for malignant neoplasm of colon Z86.010, Personal history of colonic polyps K57.30, Diverticulosis of large intestine without perforation or abscess without bleeding CPT copyright 2016 [employer]. All rights reserved. The codes documented in this report are preliminary and upon block handler review may be revised to meet current compliance requirements. Attending Participation: MD Tim Mott MD 09/16/2016 10:18:56 AM Number of Addenda: 0 Note Initiated On: 09/16/2016 9:32 AM Tim Milligan MD DIGESTIVE CARE Final Result [facility]) [place], [place] from Last 3 Months or Most Recently Relevant to Health Maintenance Insurance MEDICARE ADVANTAGE HP PREVENTIVE SR PREV ONEVISIT HP MEDICARE ADVANTAGE HP MEDICARE ADVANTAGE HP MEDICARE ADVANTAGE HP MEDICARE ADVANTAGE HP PREVENTIVE SR PREV ONEVISIT Advance Directives * Full Code (Latest Code Status on File) Date Activated Date Inactivated Comments 09/23/2024 8:00 PM 09/27/2024 1:18 PM * Full Code Date Activated Date Inactivated Comments 03/01/2024 6:08 AM 03/01/2024 8:11 PM * Full Code Date Activated Date Inactivated Comments 02/10/2018 11:08 AM 02/10/2018 4:54 PM * Full Code Date Activated Date Inactivated Comments 09/29/2012 12:23 PM 09/29/2012 7:14 PM * Full Code Date Activated Date Inactivated Comments 02/26/2011 10:47 AM 02/26/2011 6:55 PM Healthcare Agents on File Name Relationship Healthcare Agent [facility] Jose Salehrill Health Care Agent Saud Yeboah Daughter First Alternate Health Care Agent Daphnie Bautista-Obinna Daughter Second Alte rnate Health Care Agent Care Teams Safety And Security Manager Relationship Specialty Start Date End Date Charissa Cobb MD [address] [place] [address] [place] [address] PCP - General Family Practice 06/19/13
--- OUTSIDE RECORDS SUMMARY | 2024-10-13 22:01 | XMS_ITS | Encounter Summary ---
Author Organization [facility] Address [address] [place] [address] Care Team Providers Care Material Scheduler Name Role Phone Cahrissa Cobb MD Primary Care Provider [phone] Encounter Details Date Type Department Care Team (Late Contact Info) Description 04/26/2018 Correspondence None No Primary/Referring, Phy DME EQUIPMENT PROOF OF DELIVERY Social History Tobacco Use Types Packs/Day Years [...] [facility]ointment [facility] [address] [place] [address] 10/16/2024 11:40 AM CDT Appointment [facility] [address] [facility] [place] [address] Shahida Parnell, PREPARATORY TECHNICIAN, ORE DIGGER [address] [place] [address] 10/23/2024 7:45 AM CDT Appointment [facility] [address] [place] [address] 11/28/2024 10:30 AM CDT Appointment [facility] [address] [place] [address] Zahida Calloway MD [address] [place] [address] 02/12/2025 8:45 AM CDT Appointment [facility] [address] [place] [address] Palma Villegas MD [address] [place] [address] [place] [address] 04/10/2025 2:20 PM ORACLE BPM DEVELOPER [facility]ment [facility] [address] [address] Cheryl De Leon, [address] [place] [address] documented as of this encounter Visit Diagnoses Not on filedocumented in this encounter Care Teams Material Scheduler Relationship Specialty Start Date End Date Charissa Cobb MD [address] [place] [address] [place] [address] PCP - General Family Practice 06/19/13 documented as of this encounter
--- OUTSIDE RECORDS SUMMARY | 2024-10-13 22:01 | XMS_ITS | Encounter Summary ---
Author Organization [facility], [facility] Address [address], [place] [address] Care Team Providers Care Facilities Coordinator Name Role Phone Charissa Cobb MD Primary Care Provider [phone] Encounter Details Date Type Department Care Team (Latest Contact Info) Description 05/28/2010 Correspondence [facility] [address] [place] [address] D Claudio Griffin MD LEFT KNEE ARTHROSCOPY Social History Tobacco Use Types Packs/Day Years Used Date Smoking Tobacco: Never Alcohol Use Standard Drinks/Week Comments [...] Upcoming Encounters Date Type Department Care Team ( Contact Info) Description 10/16/2024 10:15 AM CDT Appointment [facility] [address] [place] [address] 10/16/2024 11:40 AM CDT Appointment [facility] [address] [place] [address] Shahida Parnell, HYDRAULIC ELEVATOR CONSTRUCTOR, CONTRACTOR BUYER [address] [place] [address] 10/23/2024 7:45 AM CDT Appointment [facility] [address] [place] [address] 11/28/2024 10:30 AM CDT [facility]ointment [facility] [address] [facility] [place] [address] Zahida Calloway MD [address] [place] [address] 02/12/2025 8:45 AM CDT Appointment [facility] [address] [place] [address] Palma Villegas MD [address] [place] [address] [place] [address] 04/10/2025 2:20 PM LAMBSKIN TRIMMER [facility]ment [facility] [address] [address] Cheryl De Leon, [address] [place] [address] documented as of this encounter Visit Diagnoses Not on filedocumented in this encounter Care Teams Facilities Coordinator Relationship Specialty Start Date End Date Charissa Cobb MD [address] [place] [address] [place] [address] PCP - General Family Practice 06/19/13 documented as of this encounter
--- OUTSIDE RECORDS SUMMARY | 2024-10-13 22:01 | XMS_ITS | Encounter Summary ---
Author Organization [facility] Address [address] [place] [address] Care Team Providers Care Commercial Loan Closer Name Role Phone Charissa Cobb MD Primary Care Provider [phone] Encounter Details Date Type Department Care Team (Late st Contact Info) Description 09/07/2016 Consent for Procedure/Treatment External to [facility] CONSULT FOR TRUS Social History Tobacco Use Types Packs/Day Years Used Date Smoking Tobacco: Never Smokeless Tobacco: Never Alcohol Use Standard Drinks/Week Comments Yes 7 (1 standard drink = 0.6 oz pur e alcohol) Sex and Gender Information Value Date [...] Appointment [facility] [address] [place], [place] [address] 10/16/2024 11:40 AM CDT Appointment [facility] 6500 [facility] [address] Shahida Parnell APRN, PAINTER MIRROR [address] [place] [address] 10/23/2024 7:45 AM CDT Appointment [facility] [address] [place] [address] 11/28/2024 10:30 AM CDT Appointment [facility] [address] [address] [place] [address]. [place] [address] Zahida Calloway MD [address] [place] [address] 02/12/2025 8:45 AM CDT Appointment [facility] [address] [place] [address] Palma Villegas MD [address] [place] [address] [place] [address] 04/10/2025 2:20 PM FACE AND FILL PACKER [facility]ment [facility] [address] [address] Cheryl De Leon, RD[address] [place] [address] documented as of this encounter Visit Diagnoses Not on filedocumented in this encounter Care Teams Commercial Loan Closer Relationship Specialty Start Date End Date Charissa Cobb MD [address] [place] [address] [place] [address] PCP - General Family Practice 06/19/13 documented as of this encounter
--- OUTSIDE RECORDS SUMMARY | 2024-10-13 22:01 | XMS_ITS | Encounter Summary ---
Author Organization [facility] Address [address] [place] [address] Care Team Providers Care Used Car Lot Attendant Name Role Phone Charissa Cobb MD Primary Care Provider [phone] Encounter Details Date Type Department Care Team (Late st Contact Info) Description 09/16/2016 Consent for Procedure/Treatme nt [facility] Department INFORMED CONSENT RECORD Social History Tobacco [...] Appointment [facility] [address] [place] [address] 10/16/2024 11:40 AM CDT Appointment [facility] [address] [facility] [place] [address] Shahida Parnell, SHIP BOSS, MARKETING ANALYTICS MANAGER [address] [place] [address] 10/23/2024 7:45 AM CDT Appointment [facility] [address] [place] [address] 11/28/2024 10:30 AM CDT Appointment [facility] [address] [place] [address]. [place] [address] Zahida Calloway MD [address] [place] [address] 02/12/2025 8:45 AM CDT Appointment [facility] [address] [place] [address] Palma Villegas MD [address] [place] [address] [place] [address] 04/10/2025 2:20 PM SWEATBAND DRUMMER [facility] [address] [address] Cheryl De Leon, RD[address] [place] [address] documented as of this encounter Visit Diagnoses Not on filedocumented in this encounter Care Teams Used Car Lot Attendant Relationship Specialty Start Date End Date Charissa Cobb MD [address] [place] [address] [place] [address] PCP - General Family Practice 06/19/13 documented as of this encounter
--- OUTSIDE RECORDS SUMMARY | 2024-10-13 22:01 | XMS_ITS | Encounter Summary ---
Author Organization [facility] Address [address] [place] [address] Care Team Providers Care Hand Mexican Food Maker Name Role Phone Charissa Cobb MD Primary Care Provider Encounter Details Date Type Department Care Team (Late st Contact Info) Description 01/25/2012 Correspondence None Inactive, Provider ZOSTER VACCINE PAW Social History Tobacco Use Types [...] as of this encounter Progress Notes * Inactive, Provider - 01/25/2012 12:00 AM CDT documented in this encounter Plan of Treatment Upcoming Encounters Date Type Department Care Team (Late st Contact Info) Description 10/16/2024 10:15 AM CDT Appointment [facility] [address] [place] [address] 10/16/2024 11:40 AM CDT Appointment [facility] [address] [place] [address] Shahida Parnell, RECLAMATION WORKER, PIECER [address] [place] [address] 10/23/2024 7:45 AM CDT Appointment [facility] [address] [place] [address] 11/28/2024 10:30 AM CDT Appointment [facility] [address] [place] [address]. [place] [address] Zahida Calloway MD [address] [place] [address] 02/12/2025 8:45 AM CDT Appointment [facility] [address] [place] [address] Palma Villegas MD [address] [place] [address] [place] [address] 04/10/2025 2:20 PM LABOR RELATIONS ANALYST Appointment [facility] [address] [address] Cheryl De Leon, JACK[address] [place] [address] documented as of this encounter Visit Diagnoses Not on filedocumented in this encounter Care Teams Hand Mexican Food Maker Relationship Specialty Start Date End Date Charissa Cobb MD [address] [place] [address] [place] [address] PCP - General Family Practice 06/19/13 documented as of this encounter
--- OUTSIDE RECORDS SUMMARY | 2024-10-13 22:01 | XMS_ITS | Encounter Summary ---
Author Organization [facility] Address [address] [place] [address] Care Team Providers Care Slubber Tender Name Role Phone Charissa Cobb MD Primary Care Provider [phone] Encounter Details Date Type Department Care Team (Late Contact Info) Description 06/22/2019 Correspondence None Inactive, Provider PAP EQUIPMENT PICK-UP TICKET Social History Tobacco Use Types Packs/Day Years [...] Appointment [facility] [address] [place] [address] 10/16/2024 11:40 AM CDT Appointment [facility] [address] [place] [address] Shahida Parnell, LACE AND TEXTILES RESTORER, FISH FARM MANAGER [address] [place] [address] 10/23/2024 7:45 AM CDT Appointment [facility] [address] [place] [address] 11/28/2024 10:30 AM CDT Appointment [facility] [address] [place] [address]. [place] [address] Zahida Calloway MD [address] [place] [address] 02/12/2025 8:45 AM CDT Appointment [facility] [address] [place] [address] Palma Villegas MD [address] [place] [address] [place] [address] 04/10/2025 2:20 PM LABORATORY MACHINIST [facility]ment [facility] [address] [address] Cheryl De Leon, RD[address] [place] [address] documented as of this encounter Visit Diagnoses Not on filedocumented in this encounter Care Teams Slubber Tender Relationship Specialty Start Date End Date Charissa Cobb MD [address] [place] [address] [place] [address] PCP - General Family Practice 06/19/13 documented as of this encounter
--- OUTSIDE RECORDS SUMMARY | 2024-10-13 22:01 | XMS_ITS | Encounter Summary ---
Author Organization [facility] Address [address] [place] [address] Care Team Providers Care Printer Floor Covering Assistant Name Role Phone Charissa Cobb MD Primary Care Provider [phone] Encounter Details Date Type Department Care Team (Late st Contact Info) Description 11/18/2016 Outside Hospital External to [facility], Provider OPERATIVE REPORT Social History Tobacco Use Types Packs/Day Years [...] Appointment [facility] [address] [place], [place] [address] [phone] 10/16/2024 11:40 AM CDT Appointment [facility] [address] [facility] [place] [address] Shahida Parnell, INSULATION EXTRUDER OPERATOR, PLANNING DIVISION SUPERINTENDENT [address] [place] [address] 10/23/2024 7:45 AM CDT Appointment [facility] [address] [place] [address] 11/28/2024 10:30 AM CDT Appointment [facility] [address] [place] [address]. [place] [address] Zahida Calloway MD [address] [place] [address] 02/12/2025 8:45 AM CDT Appointment [facility] [address] [place] [address] Palma Villegas MD [address] [place] [address] [place] [address] 04/10/2025 2:20 PM PRODUCTION LINE TECHNICIAN [facility] [address] [address] Cheryl De Leon, RD[address] [place] [address] documented as of this encounter Visit Diagnoses Not on filedocumented in this encounter Care Teams Printer Floor Covering Assistant Relationship Specialty Start Date End Date Charissa Cobb MD [address] [place] [address] [place] [address] PCP - General Family Practice 06/19/13 documented as of this encounter
--- OUTSIDE RECORDS SUMMARY | 2024-10-13 22:01 | XMS_ITS | Encounter Summary ---
Author Organization [facility] Address [address] [place] [address] Care Team Providers Care Permaculture Designer Name Role Phone Charissa Cobb MD Primary Care Provider [phone] Encounter Details Date Type Department Care Team (Latest Contact Info) Description 09/12/2024 Orders Only [facility] DEPARTMENT ProviderKetan [place] [address] Social History Tobacco Use Types Packs/Day Years Used Date Smoking Tobacco: Former Cigarettes 1 8 0 08/01/1961 - 08/01/1969 Smokeless Tobacco: Never Alcohol Use Standard Drinks/Week Comments Yes 12 (1 standard drink = 0.6 oz pu re alcohol) wine with dinner [facility] Utilities Answer Date Recorded In the past 12 months has [employer], gas, oil, or water Department [employer] [facility] threatened to shut off services in [...] in the past 12 m [facility], were you homeless or living in a half-way (including now)? No 03/01/2024 Sex and Gender [...] Appointment [facility] 6500 [facility] [place] [address] 10/16/2024 11:40 AM CDT Appointment [facility] 6500 [facility] [place] [address] Shahida Parnell, AUDIO/VIDEO TECHNICIAN, CORPORATE SECRETARY 6500 [place] [address] 10/23/2024 7:45 AM CDT Appointment [facility] [address] [place] [address] 11/28/2024 10:30 AM CDT Appointment Special[facility] [address] [place] [address]. [place] [address] Zahida Calloway MD [address] [place] [address] 02/12/2025 8:45 AM CDT Appointment [facility] [address] [place] [address] Palma Villegas MD [address] [place] [address] [place] [address] 04/10/2025 2:20 PM CONSTRUCTION FRAMER [facility]ment [facility] [address] [address] Cheryl De Leon, [address] [place] [address] documented as of this encounter Procedures Procedure Name Priority Date/Time Associated Diagnosis Comments PROCEDURE IP 09/12/2024 documented in this encounter Results * PROCEDURE IP (09/12/2024) Anatomical Region Laterality Modality Other us Interface Provider MD WILBURN/OTHER/AR Final Resu lt documented in this encounter Visit Diagnoses Not on filedocumented in this encounter Care Teams Permaculture Designer Relationship Specialty Start Date End Date Charissa Cobb MD [address] [place] [address] [place] [address] PCP - General Family Practice 06/19/13 documented as of this encounter
--- OUTSIDE RECORDS SUMMARY | 2024-10-13 22:01 | XMS_ITS | Encounter Summary ---
Author Organization [facility] Address [address] [place] [address] Care Team Providers Care Document Imaging Specialist Name Role Phone Charissa Cobb MD Primary Care Provider [phone] Encounter Details Date Type Department Care Team (Late st Contact Info) Description 09/29/2012 Consent for Procedure/Treatme nt [facility] Department INFORMED CONSENT RECORD Social History [...] as of this encounter Progress Notes * [facility], PROVIDER - 09/29/2012 12:00 AM CDT documented in this encounter Plan of Treatment Upcoming Encounters Date Type Department Care Team (Late st Contact Info) Description 10/16/2024 10:15 AM CDT Appointment [facility] [address] [place] [address] 10/16/2024 11:40 AM CDT Appointment [facility] [address] [place] [address] Shahida Parnell, SENIOR FIRMWARE ENGINEER, PHLEBOTOMIST MEDICAL LAB ASSISTANT [address] [place] [address] 10/23/2024 7:45 AM CDT Appointment [facility] [address] [place] [address] 11/28/2024 10:30 AM CDT Appointment Special[facility] [address] [place] [address]. [place] [address] Zahida Calloway MD [address] [place] [address] 02/12/2025 8:45 AM CDT Appointment [facility] [address] [place] [address] Palma Villegas MD [address] [place] [address] [place] [address] 04/10/2025 2:20 PM PLUGGING MACHINE OPERATOR App[facility]ment [facility] [address] [address] Cheryl De Leon, JACK[address] [place] [address] documented as of this encounter Visit Diagnoses Not on filedocumented in this encounter Care Teams Document Imaging Specialist Relationship Specialty Start Date End Date Charissa Cobb MD [address] [place] [address] [place] [address] PCP - General Family Practice 06/19/13 documented as of this encounter
--- OUTSIDE RECORDS SUMMARY | 2024-10-13 22:01 | XMS_ITS | Encounter Summary ---
Author Organization [facility] Address [address] [place] [address] Care Team Providers Care Medical Record Retrieval Specialist Name Role Phone Charissa Cobb MD Primary Care Provider [phone] Encounter Details Date Type Department Care Team (Late st Contact Info) Description 06/15/2010 Flowsheet External to Radha Serra MD ALLERGY INJECTION RECORD Social History Tobacco Use [...] as of this encounter Progress Notes * Radha Serra MD - 06/15/2010 12:00 AM CST E WORKER documented in this encounter Plan of Treatment Upcoming Encounters Date Type Department Care Team (Late st Contact Info) Description 10/16/2024 10:15 AM CDT Appointment [facility] [address] [place] [address] 10/16/2024 11:40 AM CDT Appointment [facility] [address] [place] [address] Shahida Parnell, SUSTAINABLE DESIGN COORDINATOR, BEEF SPECIALIST [address] [place] [address] 10/23/2024 7:45 AM CDT Appointment [facility] [address] [place] [address] 11/28/2024 10:30 AM CDT Appointment Specialty Center 401 Allergy Clinic 401 [facility] [address] Zahida Calloway MD 401 [place] [address] 02/12/2025 8:45 AM CDT Appointment [facility] [address] [place] [address] Palma Villegas MD [address] [place] [address] [place] [address] 04/10/2025 2:20 PM PIECE WORKER Appointment [facility] [address] [address] Cheryl De Leon [address] [place] [address] documented as of this encounter Visit Diagnoses Not on filedocumented in this encounter Care Teams Medical Record Retrieval Specialist Relationship Specialty Start Date End Date Charissa Cobb MD [address] [place] [address] [place] [address] PCP - General Family Practice 06/19/13 documented as of this encounter
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
--- OUTSIDE RECORDS SUMMARY | 2024-10-13 22:02 | XMS_ITS | Encounter Summary ---
Author Organization [facility] Address [address] [place] [address] Care Team Providers Care Facing Slitter Name Role Phone Charissa Cobb MD Primary Care Provider [phone] Encounter Details Date Type Department Care Team (Late st Contact Info) Description 09/11/2024 Notes/Orders [facility] Spec Proc Sup [address] [place], [place] [address] Tracy Cramer RN Social History Tobacco Use Types Packs/Day Years Used Date Smoking Tobacco: Former Cigarettes 1 8 0 08/01/1961 - 08/01/1969 Smokeless Tobacco: Never Alcohol Use Standard Drinks/Week Comments Yes 12 (1 standard drink = 0.6 oz pu re alcohol) wine with dinner [facility] Utilities Answer Date Recorded In the past 12 months has [employer], gas, oil, or water [employer] threatened to shut off services in your [...] any time in the past 12 m [facility], were you homeless or living in a halfway (including now)? No 03/01/2024 Sex and Gender [...] Appointment [facility] [address] [place] [address] 10/16/2024 11:40 AM CDT Appointment [facility] 6[address] [facility] [place] [address] Shahida Parnell APRN, FUEL OIL TRUCK DRIVER [address] [place] [address] 10/23/2024 7:45 AM CDT Appointment [facility] [address] [place] [address] 11/28/2024 10:30 AM CDT Appointment Specialty [facility] [address] [place] [address]. [place] [address] Zahida Calloway MD [address] [place] [address] 02/12/2025 8:45 AM CDT Appointment [facility] [address] [place] [address] Palma Villegas MD [address] [place] [address] [place] [address] 04/10/2025 2:20 PM MATERIAL CREW SUPERVISOR [facility]ment [facility] [address] [address] Cheryl De Leon, RD[address] [place] [address] documented as of this encounter Visit Diagnoses Not on filedocumented in this encounter Care Teams Facing Slitter Relationship Specialty Start Date End Date Charissa Cobb MD [address] [place] [address] [place] [address] PCP - General Family Practice 06/19/13 documented as of this encounter
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
--- OUTSIDE RECORDS SUMMARY | 2024-10-13 22:02 | XMS_ITS | Encounter Summary ---
Author Organization [facility] Address [address] [place] [address] Care Team Providers Care Strategic Partnership Specialist Name Role Phone Charissa Cobb MD Primary Care Provider Encounter Details Date Type Department Care Team (Latest Contact Info) Description 09/12/2024 Orders Only [facility] DEPARTMENT ProviderKetna [place] [address] Social History Tobacco Use Types Packs/Day Years Used Date Smoking Tobacco: Former Cigarettes 1 8 0 08/01/1961 - 08/01/1969 Smokeless Tobacco: Never Alcohol Use Standard Drinks/Week Comments Yes 12 (1 standard drink = 0.6 oz pu re alcohol) wine with dinner [facility] Utilities Answer Date Recorded In the past 12 months has [employer], gas, oil, or water [employer] threatened to shut off services in your [...] any time in the past 12 m [facility], were you homeless or living in [...] Appointment [facility] [address] [facility] [address] 10/16/2024 11:40 AM CDT Appointment [facility] [address] [facility] [address] Shahida Parnell, ABSTRACTOR, MILITARY NURSE [address] [place] [address] 10/23/2024 7:45 AM CDT Appointment [facility] [address] [place] [address] 11/28/2024 10:30 AM CDT Appointment [facility] [address] [place] [address]. [place] [address] Zahida Calloway MD [address] [place] [address] 02/12/2025 8:45 AM CDT Appointment [facility] [address] [place] [address] Palma Villeags MD [address] [place] [address] [place] [address] 04/10/2025 2:20 PM SHIPS EQUIPMENT ENGINEER Appointment [facility] [address] [address] Cheryl De Leon, JACK[address] [place] [address] documented as of this encounter Procedures Procedure Name Priority Date/Time Associated Diagnosis Comments EKG 09/12/2024 documented in this encounter Results * EKG (09/12/2024) us Interface Provider EKNohemy Final Resu lt documented in this encounter Visit Diagnoses Not on filedocumented in this encounter Care Teams Strategic Partnership Specialist Relationship Specialty Start Date End Date Charissa Cobb MD [address] [place] [address] [place] [address] PCP - General Family Practice 06/19/13 documented as of this encounter
--- OUTSIDE RECORDS SUMMARY | 2024-10-13 22:02 | XMS_ITS | Encounter Summary ---
Author Organization [facility] Address [address] [place] [address] Care Team Providers Care Manager Field Services Name Role Phone Charissa Cobb MD Primary Care Provider [phone] Reason for Visit * Reason Comments Medication Questions Encounter Details Date Type Department Care Team (Late st Contact Info) Description 03/03/2024 Nurse Triage Careline [address] [place] [address] Unknown, Physician [address] [place], [place] [address] Medication Questions Social History Tobacco Use Types Packs/Day Years Used Date Smoking Tobacco: Former Cigarettes 1 8 0 08/01/1961 - 08/01/1969 Smokeless Tobacco: Never Alcohol Use Standard Drinks/Week Comments Yes 12 (1 standard drink = 0.6 oz pu re alcohol) wine with dinner [facility] Utilities Answer Date Recorded In the past 12 months has [employer], gas, oil, or water company threatened to [...] PHQ-2 Answer Date Recorded PHQ-2 Score 0 07/18/2023 Hunger Vital Sign Answer Date Recorded Within [...] any time in the past 12 [facility], were you homeless or living in a nursing home (including now)? No 03/01/2024 Sex and Gender [...] as of this encounter Nursing Notes * Ruby Mcmanus - 03/03/2024 12:18 PM CDT Clinician: Review and advise Patient/personal caregiver request: Input needed Specific Request: Patient recently discharged from hospital and has questions regarding allergy injections that he receives every 6 weeks. His discharge instructions indicate that he should no longer receive these. Can you provide him some clarification on this? Thank you. Verified patient identity: Yes Situation/Background (brief explanation of current symptoms/situation): Patient reports that he wasrecently discharged from the hospital and he had some medication changes. Reports that it states to stop receiving his allergy injections that he receives every 6 weeks. Wondering why, as this wasn't discussed with him. No further questions or concerns at this time. Reviewed with patient pertinent medical history (as it related to the call): Yes Reviewed with patient pertinent medications (as they relate to call): Yes Reviewed with patient pertinent allergies (as they relate to call): N/A Reason for Disposition Caller has medicine question only, adult not sick, AND triager answers question Protocols used: Medication Question [id number] Plan: Message routed to clinic for clarification. Pt agrees with plan, no further questions. Advised patient/caller to call back CareLine if there are further questions or concerns or to be seen if situation becomes emergent. The CareLine is available 22/11. Ruby West RN Careline 12:25 PM 03/03/2024 * Veronica Murillo - 03/03/2024 10:12 AM CDT Verified patient identity using three identifiers: Yes Caller's relationship to patient: Self, Do you have a provider/clinic where you are seen for this? [facility]/[place] Are you calling about a /WARDROBE ASSISTANT related concern? No Medication Questions/New Med Request/ Side Effects What medication are you calling about (name and/or type)? Multiple What is your question/concern? Pt was discharged from [facility] yesterday. He has questions about themedications listed he should no longer take. Plan: The current callback time to speak with a nurse is 2 hours. If your symptoms change or worsen, or if you have not received a call back in the stated timeframe, please call us back documented in this encounter Plan of Treatment Upcoming Encounters Date Type Department Care Team (Late st Contact Info) Description 10/16/2024 10:15 AM CDT Appointment [facility] [address] [place] [address] 10/16/2024 11:40 AM CDT Appointment [facility] [address] [place] [address] Shahida Parnell, DIRECTOR DENTAL SERVICES, SPECIAL NEEDS LIBRARIAN [address] [place] [phone] 10/23/2024 7:45 AM CDT Appointment [facility] [address] [place] [address] 11/28/2024 10:30 AM CDT Appointment [facility] [address] [place] [address]. [place], [place] [id number] Zahida Calloway MD [address] [place] [address] 02/12/2025 8:45 AM CDT Appointment [facility] [address] [place] [address] Palma Villegas MD [address] [place] [address] [place] [address] 04/10/2025 2:20 PM GAS PIPE LAYER Appointment [facility] [address] [address] Cheryl De Leon, RD[address] [place] [address] documented as of this encounter Visit Diagnoses Not on filedocumented in this encounter Care Teams Manager Field Services Relationship Specialty Start Date End Date Charissa Cobb MD [address] [facility] [place] [address] PCP - General Family Practice 06/19/13 documented as of this encounter
--- OUTSIDE RECORDS SUMMARY | 2024-10-13 22:02 | XMS_ITS | Encounter Summary ---
Author Organization [facility] Address [address] [place] [address] Care Team Providers Care Surveillance System Monitor Name Role Phone Charissa Cobb MD Primary Care Provider [phone] Encounter Details Date Type Department Care Team (Late Contact Info) Description 06/11/2019 Consent for Procedure/Treatme nt [facility] INFORMED CONSENT FOR SLEEP/AUDIO/VIDEO Social History Tobacco Use Types Packs/Day Years [...] Appointment [facility] [address] [place] [address] 10/16/2024 11:40 AM CDT Appointment [facility] [address] [place] [address] Shahida Parnell, LINING MARKER, TAXATION INSPECTOR [address] [place] [address] 10/23/2024 7:45 AM CDT Appointment [facility] [address] [place] [address] 11/28/2024 10:30 AM CDT Appointment [facility] 401 All[facility] 401 [facility] [place] [address] Zahida Calloway MD 401 [place] [address] 02/12/2025 8:45 AM CDT Appointment [facility] [address] [place] [address] Palma Villegas MD [address] [place] [address] [place] [address] 04/10/2025 2:20 PM HOT WORT SETTLER [facility]ment [facility] [address] [address] Cheryl De Leon, RD[address] [place] [address] documented as of this encounter Visit Diagnoses Not on filedocumented in this encounter Care Teams Surveillance System Monitor Relationship Specialty Start Date End Date Charissa Cobb MD [address] [place] [address] [place] [address] PCP - General Family Practice 06/19/13 documented as of this encounter
--- OUTSIDE RECORDS SUMMARY | 2024-10-13 22:02 | XMS_ITS | Encounter Summary ---
Author Organization [facility] Address [address] [address] Care Team Providers Care Healthcare Financial Analyst Name Role Phone Charissa Cobb MD Primary Care Provider [phone] Encounter Details Date Type Department Care Team (Latest Contact Info) Description 06/29/2019 Correspondence Neurology at [address] [place] [address] Schuyler Jaeger MD [address] [place], [place] [id number] EPWORTH SLEEPINESS SCALE Social History Tobacco Use Types Packs/Day Years [...] Appointment [facility] [address] [place] [address] 10/16/2024 11:40 AM CDT Appointment [facility] [address] [place] [address] Shahida Parnell, UTILITY ENGINEER, SALMON TROLL FISHER [address] [place] [phone] 10/23/2024 7:45 AM CDT Appointment [facility] [address] [place] [address] 11/28/2024 10:30 AM CDT Appointment [facility] [address] [place] [address]. [place] [address] Zahida Calloway MD [address] [place] [address] 02/12/2025 8:45 AM CDT Appointment [facility] [address] [place] [address] Palma Villegas MD [address] [place] [address] [place] [address] 04/10/2025 2:20 PM CLINICAL DATA ABSTRACTOR Appointment [facility] [address] [address] Cheryl De Leon [address] [place] [address] documented as of this encounter Visit Diagnoses Not on filedocumented in this encounter Care Teams Healthcare Financial Analyst Relationship Specialty Start Date End Date Charissa Cobb MD [address] [place] [address] [place] [address] PCP - General Family Practice 06/19/13 documented as of this encounter
--- OUTSIDE RECORDS SUMMARY | 2024-10-13 22:02 | XMS_ITS | Encounter Summary ---
Author Organization [facility] Address [address] [place] [address] Care Team Providers Care Clinical Rehabilitation Liaison Name Role Phone Charissa Cobb MD Primary Care Provider [phone] Encounter Details Date Type Department Care Team (Late st Contact Info) Description 09/03/2024 Results Follow-Up [facility] [address] [place], [place] [address] Montse Leon, RN Social History Tobacco Use Types Packs/Day Years Used Date Smoking Tobacco: Former Cigarettes 1 8 0 08/01/1961 - 08/01/1969 Smokeless Tobacco: Never Alcohol Use Standard Drinks/Week Comments Yes 12 (1 standard drink = 0.6 oz pu re alcohol) wine with dinner [facility] Utilities Answer Date Recorded In the past 12 months has e electric, gas, oil, or water company [...] any time in the past 12 m [facility], were you homeless or living in a group home (including now)? No 03/01/2024 Sex and [...] Appointment [facility] [address] [place] [address] 10/16/2024 11:40 AM CDT Appointment [facility] [address] [place] [address] Shahida Parnell, CUSTOMER CARE SPECIALIST, CELERY WRAPPER [address] [place] [phone] 10/23/2024 7:45 AM CDT Appointment [facility] [address] [place] [address] 11/28/2024 10:30 AM CDT Appointment [facility] [address] [place] [address]. [place] [address] Zahida Calloway MD [address] [place] [address] 02/12/2025 8:45 AM CDT Appointment [facility] [address] [place] [address] Palma Villegas MD [address] [place] [address] [place] [address] 04/10/2025 2:20 PM REGULATORY COMPLIANCE ENGINEER [facility] [address] [address] Cheryl De Leon, RD[address] [place] [address] documented as of this encounter Visit Diagnoses Not on filedocumented in this encounter Care Teams Clinical Rehabilitation Liaison Relationship Specialty Start Date End Date Charissa Cobb MD [address] [place] [address] [place] [address] PCP - General Family Practice 06/19/13 documented as of this encounter
--- OUTSIDE RECORDS SUMMARY | 2024-10-13 22:02 | XMS_ITS | Encounter Summary ---
Author Organization [facility] Address [address] [place] [address] Care Team Providers Care Special Certificate Dictator Name Role Phone Charissa Cobb MD Primary Care Provider [phone] Reason for Visit * Reason Comments Patient Education New Implant Dual Pac emaker [CPT 08185] Encounter Details Date Type Department Care Team (Late st Contact Info) Description 09/03/2024 Telephone [facility] [address] [facility] [place] [address] Abhijit Girard MD [address] [place], [place] [address] Patient Education (New Implant Dual Pacemaker [CPT 70142]/) Social History Tobacco Use Types Packs/Day Years Used Date Smoking Tobacco: Former Cigarettes 1 8 0 08/01/1961 - 08/01/1969 Smokeless Tobacco: Never Alcohol Use Standard Drinks/Week Comments Yes 12 (1 standard drink = 0.6 oz pu re alcohol) wine with dinner [facility] Utilities Answer Date Recorded In the past 12 months has th e [employer], gas, oil, or water [employer] threatened to shut off services in your [...] any time in the past 12 m [facility], were you homeless or living in a chcf (including now)? No 03/01/2024 Sex and Gender [...] as of this encounter Nursing Notes * Montse Leon, RN - 09/03/2024 11:23 AM CDT Pre-Procedural Teaching: Pacemaker Implantation, EP MD: No Date: 09/12/24, Arrive: 930 , Procedure Time: 1030, Date/Time information given to EP/Card heating fixture tender: Maribel Did procedure CPT code get added to comments section of reason for visit? (use .epprocedures, then F2 through options): yes If PVI, did patient receive the AFEQT Questionnaire with instruction to turn in completed questionnaire to [facility] at time of procedure check-in?: not applicable Any existing implanted medical devices? No (If patient has an existing implanted medical technologist clinical, please include description in above response and make copy of patient's wallet card for the device to scan into EPIC). Learner(s): Patient and Significant Other Knowledge Level: None Readiness to Learn: Ready Information: Procedural Instruction sheet reviewed and given to patient Lab tests to be done: 09/03/24 CXR needed: no NPO: Procedural Sedation - NPO with solid foods 6 hours and clear liquids 4 hours prior to arrival time. Medications to hold: NA If patient takes GLP-1 or SGLT2 inhibitors, check on urgency need with ordering provider: NA Diabetic: no Hold Oral: not applicable Hold Insulin: not applicable Anticoagulation: NA Hold: no (If new device implant or generator change and patient is on warfarin, hold night before for INR <= 3.5) Skin prep instructions reviewed:yes Need to have shuttle bus driver Need to have someone stay with them 12 hours post discharge for same day procedures Nurse from 2nd floor will call the day prior Device generator change: Inform if new lead will need to stay over night Method: Verbal Explanation and Written Material Outcome: Able to verbalize instructions Barriers to Learning: No barrier Please direct patients to leave valuables, including jewelry, at home on the date of their procedure. If CDV, please request that patient's ride remains on-site for quicker discharge post-procedure. Allergy list reviewed: yes Last echocardiogram:03/01/24 Hx of swallowing difficulties (LEELEE pts):not applicable Filter Press Tender Head needed: no Pre-procedural orders entered: yes H&P completed: yes Date: 09/03/24 Consent Signed by Patient in Clinic: no documented in this encounter Plan of Treatment Upcoming Encounters Date Type Department Care Team (Late st Contact Info) Description 10/16/2024 10:15 AM CDT Appointment [facility] [address] [place] [address] 10/16/2024 11:40 AM CDT Appointment [facility] [address] [place] [address] Shahida Parnell APRN, PLANIMETER OPERATOR [address] [place] [address] 10/23/2024 7:45 AM CDT Appointment [facility] [address] [place] [address] 11/28/2024 10:30 AM CDT Appointment [facility] [address] [place] [address]. [place] [address] Zahida Calloway MD [address] [place] [address] 02/12/2025 8:45 AM CDT Appointment [facility] [address] [place] [address] Palma Villegas MD [address] [place] [address] [place] [address] 04/10/2025 2:20 PM COMPUTER ART INSTRUCTOR [facility]ment [facility] [address] [address] Cheryl De Leon, RD[address] [place] [address] documented as of this encounter Visit Diagnoses Not on filedocumented in this encounter Care Teams Special Certificate Dictator Relationship Specialty Start Date End Date Charissa Cobb MD [address] [place] [address] [place] [address] PCP - General Family Practice 06/19/13 documented as of this encounter
--- OUTSIDE RECORDS SUMMARY | 2024-10-13 22:02 | XMS_ITS | Encounter Summary ---
[facility] Address [address] [place] [id number] Care Team Providers Care Consultant Intern Name Role Phone Charissa Cobb MD Primary Care Provider [phone] Encounter Details Date Type Department Care Team (Late Contact Info) Description 06/22/2019 Correspondence None Inactive, Provider INSTRUCTION CHECKLIST Social History Tobacco Use Types Packs/Day Years [...] Appointment [facility] [address] [place] [place] [address] 10/16/2024 11:40 AM CDT Appointment [facility] [address] [facility] [place] [address] Shahida Parnell, SERVICING MANAGER, GASTROENTEROLOGY NURSE PRACTITIONER [address] [place] [address] 10/23/2024 7:45 AM CDT Appointment [facility] [address] [place] [address] 11/28/2024 10:30 AM CDT Appointment [facility] [address] [facility] [place] [address] Zahida Calloway MD [address] [place] [address] 02/12/2025 8:45 AM CDT Appointment [facility] [address] [place] [address] Palma Villegas MD [address] [place] [address] [place] [address] 04/10/2025 2:20 PM CASH MANAGEMENT SPECIALIST Appointment [facility] [address] [address] Cheryl De Leon, [address] [address] documented as of this encounter Visit Diagnoses Not on filedocumented in this encounter Care Teams Consultant Intern Relationship Specialty Start Date End Date Charissa Cobb MD [address] [place] [address] [place] [address] PCP - General Family Practice 06/19/13 documented as of this encounter
[2024-10-13 22:11] LABS: Troponin I* < 0.01 ng/mL (0.01-0.04)
[2024-10-13 22:16] VITALS: BP 114/91; PULSE 66; RESP 16; O2SAT 98
== END 2024-10-13 23:10 | disposition home or self-care (01) ==
PROVIDERS: Emergency Provider Family Medicine
DX: R55 Syncope and collapse (principal); Z95.0 Presence of cardiac pacemaker
CPT/HCPCS: 36415; 80048; 82077; 84484; 85025; 99284